=== PATIENT | male | born 1955 | race Caucasian/White ===

== ENCOUNTER 2018-04-26 15:37 | Inpatient (IN) | payer MEDICAID ==
[~2018-04-26] VITALS: Ht 167.6 cm; Wt 107.5 kg
[~2018-04-26 15:37] MED LIST: IBUP200C11 PO
[2018-04-26] MEDS ORDERED: ALBUTEROL 0.5% (NEB) 2.5 MG/0.5 ML AMP INH STA (16:07)
[2018-04-26] MEDS ORDERED: IPRATROPIUM (NEB) 0.5 MG/2.5 ML AMP INH STA (16:07)
[2018-04-26] MEDS ORDERED: METHYLPREDNISOLONE 125 MG INJ IV STA (16:07)
[2018-04-26] MEDS ORDERED: FUROSEMIDE 40 MG INJ ONE (18:08)
[2018-04-26] MEDS ORDERED: IBUP-1542 PO (18:10)
[2018-04-26] MEDS ORDERED: SIMV40TA2 PO (18:11)
[2018-04-26] MEDS ORDERED: ASPI-817 PO (18:11)
[2018-04-26] MEDS ORDERED: BENA40TA56 PO (18:12)
[2018-04-26] MEDS ORDERED: HYDR12.58 PO (18:12)
[2018-04-26] MEDS ORDERED: VIA100 PO (18:13)
[2018-04-26] MEDS ORDERED: FUROSEMIDE 40 MG INJ IV ONE (18:30)
[2018-04-26] MEDS ORDERED: LEVOFLOXACIN 750MG/D5W (PMX) 150 ML IVPB ONE (19:00)
--- NOTE | 2018-04-26 19:39 | ERD ---
ER Documentation Chief Complaint Chief Complaint Sent from for SOB HPI This is a 62-year-old male with a past medical history of hypertension, hyperlipidemia, chronic wheezing, chronic dyspnea on exertion, chronic lower extremity edema but no reported diagnosis of COPD or CHF who is now presenting with progressive worsening symptoms. Over the last 5-6 days, the patient has had a congested cough. He has had increased dyspnea on exertion, unable to walk down the hallway without feeling short of breath. He endorses waxing and waning chest pressure but no chest pain. He does not endorse any chest pressure or pain at this time. He does endorse bilateral lower extremity edema, but it is unchanged compared to his normal baseline. He does not endorse diaphoresis. While the patient did not endorse any wheezing, the family reports that he wheezes chronically and that this too has been getting worse over the last few days. The patient also endorses paroxysmal nocturnal dyspnea. Usually he sleeps with 3 pillows underneath him, but this is no longer helping. He is still waking up with significant air hunger. He does not endorse fever or chills at home. He does not endorse lightheadedness or dizziness. The patient denies nausea or vomiting. The patient has had no headache or vision changes. The patient does not endorse neck or back pain. The patient denies abdominal pain. The patient denies changes to bowel movements or urination. The patient has had no focal deficits. The patient has had no weakness or numbness or tingling to the face or extremities. ROS All systems reviewed and are negative except as per history of present illness. Medications Home Meds Reported Medications Sildenafil Citrate* (Viagra*) 100 Mg Tablet, 100 MG PO NEEDED PRN for PRN, TAB 04/26/18 Benazepril Hcl* (Benazepril Hcl*) 40 Mg Tablet, 40 MG PO DAILY, #30 TAB 04/26/18 Hydrochlorothiazide* (Hydrochlorothiazide*) 12.5 Mg Tablet, 12.5 MG PO DAILY, #30 TAB 04/26/18 Aspirin* (Aspirin* EC) 81 Mg Tablet.dr, 81 MG PO DAILY, TAB 04/26/18 Simvastatin* (Zocor*) 40 Mg Tablet, 40 MG PO DAILY, #30 TAB 04/26/18 Ibuprofen* (Ibuprofen*) 600 Mg Tablet, 600 MG PO DAILY, TAB 04/26/18 Discontinued Reported Medications Ibuprofen* (Advil*) 200 Mg Capsule, 600 MG PO Q4 05/02/12 Allergies Allergies: Coded Allergies: No Known Allergy (Unverified , 04/26/18) PMhx/Soc History of Surgery: Yes (FOREHEAD, EYES-PLASTIC SURGERY) Anesthesia Reaction: No Hx Neurological Disorder: No Hx Respiratory Disorders: Yes (COPD) Hx Cardiac Disorders: Yes (Hypertension, hyperlipidemia, CHF) Hx Psychiatric Problems: No Hx Miscellaneous Medical Probl: No Hx Alcohol Use: Yes Hx Substance Use: No Hx Tobacco Use: Yes Smoking Status: Current every day smoker FmHx Family History: No diabetes Physical Exam Vitals Vital Signs Date Temp Pulse Resp B/P (MAP) Pulse Ox O2 O2 Flow FiO2 Time Delivery Rate 04/26/18 103 22 137/98 95 18:03 (111) 04/26/18 5.0 16:22 04/26/18 110 26 91 Nasal 5.0 16:22 Cannula 04/26/18 98.2 108 20 156/89 99 15:44 (111) Physical Exam Const: Well-developed, well-nourished Head: Normocephalic, Atraumatic Eyes: Normal Conjunctiva. Extraocular movements intact. Pupils equal, round and reactive to light ENT: Normal External Ears, Nose and Mouth. Neck: Full range of motion. No meningismus. Resp: Hypoxia in the high 80s. Dyspnea, only able to speak in 3-4 word sentences. Bibasilar rales. Diffuse bilateral end expiratory wheezes. Mild respiratory distress. Cardio: Regular rhythm. Mild tachycardia. No murmurs, rubs or gallops Abd: Obese. Soft, non tender, non distended. Normal bowel sounds Skin: No petechiae or rashes Back: No midline tenderness. No CVA tenderness Ext: No cyanosis, or edema Neur: Awake and alert, oriented 4. Cranial nerves intact. No facial droop. Normal strength, sensation and coordination. Psych: Normal Mood and Affect Result Diagram: 04/26/18 1615 04/26/18 1615 Results 24 hrs Laboratory Tests Test 04/26/18 15:59 04/26/18 16:14 04/26/18 16:15 Blood Gas Specimen Source Blood arterial Arterial Blood Date Drawn 04/26/2018 4:12:01 PM Arterial Blood pH 7.370 (Temp corrected) Arterial Blood pCO2 61.9 mmhg (Temp correct) Arterial Blood pO2 60.7 mmHG (Temp corrected) Arterial Blood HCO3 35.0 mmol/L Arterial Blood Base Excess 6.8 mmol/L Arterial Blood 90.2 mmHG Oxygen Saturation Simeon Test ACCEPTAB Arterial Blood Gas Left Radial Puncture Site Arterial 2.6 % Blood Carboxyhemoglobin Arterial Blood Methemoglobin 0.3 % Blood Gas A-a O2 Differential 124.2 mmHg Oxyhemoglobin Percent 87.6 % Blood Gas Temperature 37.0 C Blood Gas Modality NASAL CANNULA FiO2 36.0 % Blood Gas Notified Whom MDA Blood Gas Notified Time 04/26/2018 4:14:26 PM POC Venous Lactate 1.4 mmol/L White Blood Count 13.0 10^3/ul Red Blood Count 5.77 10^6/ul Hemoglobin 17.5 g/dl Hematocrit 55.2 % Mean Corpuscular Volume 95.7 fl Mean Corpuscular Hemoglobin 30.3 pg Mean Corpuscular 31.7 g/dl Hemoglobin Concent Red Cell Distribution Width 13.6 % Platelet Count 246 10^3/UL Mean Platelet Volume 10.7 fl Immature Granulocytes % 2.200 % Neutrophils % 56.7 % Segmented Neutrophils 61 % % (Manual) Lymphocytes % 28.7 % Lymphocytes % (Manual) 28 % Reactive Lymphocytes 2 % % (Manual) Monocytes % 11.0 % Monocytes % (Manual) 5 % Eosinophils % 0.4 % Eosinophils % (Manual) 1 % Basophils % 1.0 % Basophils % (Manual) 1 % Metamyelocytes % (manual) 1 % Plasma Cells % (manual) 1 % Nucleated Red Blood Cells % 2 % Immature Granulocytes # 0.290 10^3/ul Neutrophils # 7.3 10^3/ul Lymphocytes (Manual) 3.6 10^3/ul Lymphocytes # 3.7 10^3/ul Reactive Lymphocytes # 0.2 10^3/ul Monocytes # 1.4 10^3/ul Monocytes # (Manual) 0.6 10^3/ul Eosinophils # 0.1 10^3/ul Basophils # 0.1 10^3/ul Basophils # (Manual) 0.1 10^3/ul Metamyelocytes # 0.1 10^3/ul Plasma Cells # (manual) 0.1 10^3/ul Nucleated Red Blood Cells # 0.1 10^3/ul Platelet Estimate NORMAL Giant Platelets 1 % Polychromasia 1+ Anisocytosis 1+ Microcytosis 1+ Macrocytosis 1+ Prothrombin Time 12.2 Sec Prothrombin Time Ratio 1.0 INR International 0.89 Normalized Ratio Sodium Level 139 mmol/L Potassium Level 4.3 mmol/L Chloride Level 93 mmol/L Carbon Dioxide Level 35 mmol/L Anion Gap 11 Blood Urea Nitrogen 29 mg/dl Creatinine 0.78 mg/dl Est Glomerular Filtrat > 60 mL/min Rate mL/min Glucose Level 107 mg/dl Calcium Level 8.9 mg/dl Total Bilirubin 0.6 mg/dl Direct Bilirubin 0.00 mg/dl Indirect Bilirubin 0.6 mg/dl Aspartate Amino 43 IU/L Transf (AST/SGOT) Alanine 42 IU/L Aminotransferase (ALT/SGPT) Alkaline Phosphatase 65 IU/L Troponin I 0.047 ng/ml B-Type Natriuretic Peptide 5640 PG/ML Total Protein 8.0 g/dl Albumin 4.2 g/dl Globulin 3.80 g/dl Albumin/Globulin Ratio 1.10 Current Medications Medications Dose Sig/Jasmin Start Time Status Last (Trade) Ordered Route PRN Stop Time Admin Dose Reason Admin Ipratropium 1.5 mg ONCE STAT 04/26/18 DC 04/26/18 Wallace INH 16:07 04/26/18 16:19 (Atrovent 16:09 0.02% (Neb)) Albuterol 15 mg ONCE STAT 04/26/18 DC 04/26/18 (Proventil INH 16:07 04/26/18 16:19 0.5% (Neb)) 16:09 125 mg ONCE STAT 04/26/18 DC 04/26/18 Methylprednis IV 16:07 04/26/18 16:27 olone Sodium 16:09 Succinate (Solu-Medrol) Furosemide 40 mg ONCE ONCE 04/26/18 DC 04/26/18 (Lasix) IV 18:30 04/26/18 18:15 18:31 Furosemide 40 mg STK-MED 04/26/18 DC (Lasix) ONCE .ROUTE 18:08 04/26/18 18:09 150 ml @ ONCE ONCE 04/26/18 04/26/18 Levofloxacin/ 100 mls/hr IVPB 19:00 04/26/18 19:07 Dextrose 20:29 Procedures/MDM MDM The patient's presentation warrants further investigation. Previous medical records, if available, were reviewed. LABS The patient's laboratory testing was obtained and reviewed. No emergent treatment was required unless described below. CBC: Leukocytosis but no left shift. No E/o anemia or thrombocytopenia Chemistry: No E/o severe acidosis or renal failure or liver disease or diabetic ketoacidosis. Metabolic alkalosis likely compensatory to a respiratory acidosis from COPD. Elevated BUN with a BUN: Creatinine ratio greater than 20:1, likely related to third spacing and intravascular depletion. PT/INR: No E/o significant coagulopathy Lactate: No E/o severe sepsis Troponin: No E/o acute ischemia BNP: E/o heart failure ABG: Hypercapnia and hypoxemia EKG EKG read by me: Rate/Rhythm: Sinus tachycardia at 102 bpm Intervals: Normal SD interval. Wide QRS in the setting of a left bundle branch block. [place]: Left axis deviation Impression: Left bundle branch block that does not meet sgarbossa criteria. No evidence of STEMI. Sinus tachycardia Repeat EKG read by me: Rate/Rhythm: Sinus tachycardia at 103 bpm with a PVC present Intervals: Normal SD interval. Wide QRS in the setting of a left bundle branch block. [place]: Left axis deviation Impression: Left bundle branch block that does not meet sgarbossa criteria. No evidence of STEMI. Sinus tachycardia. PVCs. IMAGING Imaging and Radiology interpretation reviewed. CXR FINDINGS: There is mild cardiomegaly. There is mild pulmonary vascular conge stion. There are bilateral perihilar and lower lobe increased interstitial changes. There is no pleural effusion.. There is no pneumothorax. IMPRESSION: Mild cardiomegaly with pulmonary vascular congestion. Electronically viewed and signed by Jaime Garcia MD, on 04/26/2018 16:29 TREATMENT/DISPOSITION The patient presents in respiratory distress. The patient was initially started on nasal cannula, but the patient's ABG reveals hypercapnia. The patient is also hypoxic. There is evidence of COPD on exam. The patient was treated with nebulized albuterol and ipratropium in addition to Solu-Medrol. There is also evidence of heart failure clinically, radiographically and hematologically. The patient was also given a dose of Lasix. The patient has not been feeling well with cough and congestion, I am concerned about a COPD exacerbation of a possible infectious etiology. The patient does have a leukocytosis and was mildly tachycardic. A septic workup was completed. The patient's lactic acid is within normal limits. I do not see evidence of endorgan damage. I have very low suspicion for sepsis and I do not feel the patient requires a full septic workup. I do not think the patient would benefit from a sepsis bolus. The patient was started on a dose of Levaquin in the emergency department to treat for a possible infection. The patient's chest xray does not reveal a focal pneumonia or pneumothorax or pleural effusions. The patient does not have a widened mediastinum and does not have signs or symptoms concerning for thoracic aortic aneurysm or dissection. The patient does not have pneumomediastinum or signs concerning for esophageal tear or rupture. The patient has no clinical or radiographic signs of pericardial effusion or tamponade. The patient does not have pneumoperitoneum and I have decreased suspicion of viscus perforation as possible referred pain. I have low suspicion for pulmonary embolism. Despite the breathing treatments, the patient continued to be hypoxic. The patient was ultimately started on BiPAP in the emergency department with improved oxygenation. This should also help his hypercapnia from COPD as well as his pulmonary edema from CHF. CRITICAL CARE NOTE Time: 35 minutes excluding all billable procedures. Treatments/Evaluations: The patient was at risk of hemodynamic compromise. Timing of critical care involved close serial monitoring, evaluation of the patient's medical record including previous records & current laboratory/imaging studies, potential interventions for prevention of hemodynamic/ cardiopulmonary/ neurologic compromise, maintaining tight fluid balance, and any discussions with the family and/or consultants regarding the patient's status and prognosis. ADMISSION At this time, I feel that the patient requires admission for further evaluation and management. The patient will be admitted to panel in accordance with the patient's insurance. The patient was accepted by Dr. David at 1930PM April 26, 2018. Disclaimer: Inadvertent spelling and grammatical errors are likely due to EHR/dictation software use and do not reflect on the overall quality of patient care. Note that the electronic time recorded on this note does not necessarily reflect the actual time of the patient encounter. Departure Diagnosis: Primary Impression: COPD exacerbation Additional Impressions: Bronchitis Hypercapnia Metabolic alkalosis with respiratory acidosis Leukocytosis Leukocytosis type: unspecified Qualified Codes: D72.829 - Elevated white blood cell count, unspecified Hypoxia CHF exacerbation Heart failure type: unspecified Qualified Codes: I50.9 - Heart failure, unspecified Elevated BUN Intravascular volume depletion Elevated brain natriuretic peptide (BNP) level Condition: Serious GREG MANUEL MD Apr 26, 2018 19:23
[2018-04-26] MEDS ORDERED: ACETAMINOPHEN 325 MG TAB PO PRN (20:00)
[2018-04-26] MEDS ORDERED: ONDANSETRON 4 MG INJ IV PRN ×2 (20:00→20:30)
--- NOTE | 2018-04-26 20:29 | HP ---
Date/Time of Note Date/Time of Note DATE: 04/26/18 TIME: 20:27 Assessment/Plan VTE Prophylaxis SCD applied (from Nsg): Yes Pharmacological prophylaxis: heparin Lines/Catheters IV Catheter Type (from Nrsg): Saline Lock Assessment/Plan Hospital Course This is a 62-year-old male being admitted to the telemetry floor for: #1 acute on chronic hypoxemic hypercapnic respiratory failure: Etiology multifactorial secondary to undiagnosed COPD/CHF. Scheduled nebs and steroids. Lasix 40 mg IV twice daily. Continue BiPAP, serial ABGs. #2 severe sepsis: Etiology unclear at the current time, will check urinalysis. Started with treatment on Levaquin in the ED will continue this. Pending culture results. Trend lactic acid levels. #3 Suspect COPD exacerbation: Scheduled nebs and steroids, Levaquin 750 mg every 24 hours. #4 newly diagnosed CHF: Lasix 40 mg twice daily. Strict I's and O's. 1200 cc fluid restriction. Low-salt diet. Continue TIMOTHY inhibitor, statin, aspirin. Will check an echocardiogram. Consult cardiology #5 obesity: We will check hemoglobin A1c, lipid panel, TSH, encourage diet and lifestyle modification #6 lactic acidosis: Suspect multifactorial secondary to underlying sepsis and/or hypoxia. We will continue to trend. Continue treating as per above. #7 hypertension: Continue home meds #8 hyperlipidemia continue statin #9 DVT GI prophylaxis: Heparin, no GI prophylaxis indicated Further treatment strategy will be implemented as per the clinical course Result Diagram: 04/26/18 1615 04/26/18 1615 Results 24hrs Laboratory Tests Test 04/26/18 15:59 04/26/18 16:14 04/26/18 16:15 Blood Gas Specimen Source Blood arterial Arterial Blood Date Drawn 04/26/2018 4:12:01 PM Arterial Blood pH 7.370 (Temp corrected) Arterial Blood pCO2 61.9 H (Temp correct) Arterial Blood pO2 60.7 L (Temp corrected) Arterial Blood HCO3 35.0 H Arterial Blood Base Excess 6.8 H Arterial Blood 90.2 L Oxygen Saturation Simeon Test ACCEPTAB Arterial Blood Gas Left Radial Puncture Site Arterial 2.6 Blood Carboxyhemoglobin Arterial Blood Methemoglobin 0.3 Blood Gas A-a O2 Differential 124.2 H Oxyhemoglobin Percent 87.6 L Blood Gas Temperature 37.0 Blood Gas Modality NASAL CANNULA FiO2 36.0 Blood Gas Notified Whom [facility] Blood Gas Notified Time 04/26/2018 4:14:26 PM POC Venous Lactate 1.4 White Blood Count 13.0 H Red Blood Count 5.77 Hemoglobin 17.5 Hematocrit 55.2 H Mean Corpuscular Volume 95.7 Mean Corpuscular Hemoglobin 30.3 Mean Corpuscular 31.7 L Hemoglobin Concent Red Cell Distribution Width 13.6 Platelet Count 246 Mean Platelet Volume 10.7 H Immature Granulocytes % 2.200 H Neutrophils % 56.7 Segmented Neutrophils 61 % (Manual) Lymphocytes % 28.7 Lymphocytes % (Manual) 28 Reactive Lymphocytes % (Manual) 2 H Monocytes % 11.0 Monocytes % (Manual) 5 Eosinophils % 0.4 Eosinophils % (Manual) 1 Basophils % 1.0 Basophils % (Manual) 1 Metamyelocytes % (manual) 1 H Plasma Cells % (manual) 1 Nucleated Red Blood Cells % 2 H Immature Granulocytes # 0.290 H Neutrophils # 7.3 Lymphocytes (Manual) 3.6 H Lymphocytes # 3.7 H Reactive Lymphocytes # 0.2 H Monocytes # 1.4 H Monocytes # (Manual) 0.6 Eosinophils # 0.1 Basophils # 0.1 Basophils # (Manual) 0.1 H Metamyelocytes # 0.1 H Plasma Cells # (manual) 0.1 H Nucleated Red Blood Cells # 0.1 H Platelet Estimate NORMAL Giant Platelets 1 H Polychromasia 1+ Anisocytosis 1+ Microcytosis 1+ Macrocytosis 1+ Prothrombin Time 12.2 Prothrombin Time Ratio 1.0 INR International 0.89 Normalized Ratio Sodium Level 139 Potassium Level 4.3 Chloride Level 93 L Carbon Dioxide Level 35 H Anion Gap 11 Blood Urea Nitrogen 29 H Creatinine 0.78 Est Glomerular Filtrat > 60 Rate mL/min Glucose Level 107 Calcium Level 8.9 Total Bilirubin 0.6 Direct Bilirubin 0.00 Indirect Bilirubin 0.6 Aspartate Amino 43 Transf (AST/SGOT) Alanine 42 Aminotransferase (ALT/SGPT) Alkaline Phosphatase 65 Troponin I 0.047 B-Type Natriuretic Peptide 5640 H Total Protein 8.0 Albumin 4.2 Globulin 3.80 H Albumin/Globulin Ratio 1.10 HPI/ROS Admit Date/Time Admit Date/Time Hx of Present Illness cc: cough, wheezing, dyspnea for almost 1 week This is a 62-year-old male with a past medical history of hypertension, hyper lipidemia, chronic wheezing, chronic dyspnea on exertion, chronic lower extremity edema but no reported diagnosis of COPD or CHF who is now presenting with progressive worsening symptoms. Over the last 5-6 days, the patient has had a congested cough. He has had increased dyspnea on exertion, unable to walk down the hallway without feeling short of breath. He endorses waxing and waning chest pressure but no chest pain. He does not endorse any chest pressure or pain at this time. He does report bilateral lower extremity edema. Patient also reports wheezing. The patient also endorses paroxysmal nocturnal dyspnea. Usually he sleeps with 3 pillows underneath him, but this is no longer helping. He denies any fevers chills or lightheadedness or nausea vomiting or diarrhea. allergies: nkda meds: see flakita GOLDEN Const: As per HPI Eyes : No pain discharge or redness or change in visual acuity ENT: No pain, sore throat, congestion, congestion, dysphagia or discharge Respiratory: As per HPI Cardiovascular: As per HPI GI : no change in appetite, abdominal pain, nausea, vomiting, diarrhea, constipation, or change in the color his stool Genitourinary: No dysuria, hematuria, flank pain , discharge or CVA tenderness Musculoskeletal: No joint pain, back pain, neck pain, restricted range of motion in neck or joints Skin: No rash, bruising or hives Neuro: No headache, dizziness, syncope, seizure, focal weakness Endocrine: No polyuria, polydipsia, temperature intolerance Psych: No hallucination, depression, anxiety or suicidal ideation PMH/Family/Social Past Medical History hypertension, hyperlipidemia Medications Current Medications Levofloxacin/ Dextrose 150 ml @ 100 mls/hr ONCE ONCE IVPB Last administered on 04/26/18at 19:07; Admin Dose 100 MLS/HR; Start 04/26/18 at 19:00; Stop 04/26/18 at 20:29 Ondansetron HCl (Zofran Inj) 4 mg ER BRIDGE PRN IV NAUSEA/VOMITING; Start 04/26/18 at 20:00; Stop 04/27/18 at 19:59 Acetaminophen (Tylenol Tab) 650 mg ER BRIDGE PRN PO .MILD PAIN 1-3 OR TEMP; Start 04/26/18 at 20:00; Stop 04/27/18 at 19:59 Coded Allergies: No Known Allergy (Unverified , 04/26/18) Past Surgical History Past Surgical Hx: no surgical history Family History Significant Family History: no pertinent family hx Social History Alcohol Use: none Smoking Status: Current every day smoker Drug Use: none Exam/Review of Systems Vital Signs Vitals Vital Signs Date Temp Pulse Resp B/P (MAP) Pulse Ox O2 O2 Flow FiO2 Time Delivery Rate 04/26/18 106 18 145/102 97 BIPAP 19:43 (116) 04/26/18 100 19:15 04/26/18 5.0 16:22 04/26/18 98.2 15:44 Exam Exam General: Patient is currently sitting upright in bed in no acute distress, off of BiPAP at the moment for a break HEENT: Atraumatic, normocephalic. The pupils are equal, round and reactive. Ex traocular motor are intact Neck: Supple with full range of motion. No rigidity or meningismus Chest: Nontender Lungs: Expiratory wheezing on auscultation, nonlabored breathing Heart: Normal S1-S2, Regular rhythm and rate. No overt murmurs appreciated on auscultation Abdomen: Obese, soft , nontender, nondistended , bowel sounds are present. No guarding no rebound tenderness , No masses or organomegaly. No costovertebral temporal angle mass Extremities: Normal to inspection, no edema no cyanosis Neurologic: Normal mental status, speech normal, cranial nerves II through XII are intact, motor and sensory are intact, Additional Comments EKG Rate/Rhythm: Sinus tachycardia at 102 bpm Intervals: Normal [place] interval. Wide QRS in the setting of a left bundle branch block. [place]: Left axis deviation Impression: Left bundle branch block that does not meet sgarbossa criteria. No evidence of STEMI. Sinus tachycardia PROCEDURE: XR Chest. CLINICAL INDICATION: Chest pain TECHNIQUE: Single portable view of the chest was obtained COMPARISON: 05/02/2012 FINDINGS: There is mild cardiomegaly. There is mild pulmonary vascular congestion. There are bilateral perihilar and lower lobe increased interstitial changes. There is no pleural effusion.. There is no pneumothorax. RPTAT: AA IMPRESSION: Mild cardiomegaly with pulmonary vascular congestion. .Jaime Garcia MD, MD Date Time Electronically viewed and signed by .Jaime Garcia MD, MD on 04/26/2018 16:29 .S/ CC: GREG MANUEL MD [id number] JULI FLORENTINO Apr 26, 2018 20:29
[2018-04-26] MEDS ORDERED: DOCUSATE SODIUM 100 MG CAP PO PRN (20:30)
[2018-04-26] MEDS ORDERED: MAGNESIUM HYDROXIDE 30ML CUP PO PRN (20:30)
[2018-04-26] MEDS ORDERED: NACL 0.9% 3 ML SYG IV SCH (20:30)
[2018-04-26] MEDS ORDERED: LEVALBUTEROL (NEB) 1.25 MG/0.5 ML AMP HHN PRN (20:30)
[2018-04-26 21:28] VITALS: PULSE 109
[2018-04-26] MEDS: LEVALBUTEROL (NEB) 1.25 MG/0.5 ML AMP HHN SCH (21:30)
[2018-04-26] MEDS: IPRATROPIUM (NEB) 0.5 MG/2.5 ML AMP HHN SCH (21:30)
[2018-04-26 21:50] VITALS: PULSE 112
[2018-04-26] MEDS ORDERED: ALBUMIN HUMAN 25% 100 ML IV ONE (23:00)
[2018-04-26 23:18] VITALS: PULSE 104
[2018-04-26 23:25] VITALS: BP 116/70; PULSE 98; RESP 18
[2018-04-26] MEDS: HEPARIN 5,000 UNIT/1 ML VIAL SC SCH (23:27)
[2018-04-26 23:33] VITALS: Ht 167.6 cm; Wt 107.5 kg
[2018-04-27] VITALS (30 sets, daily range): BP systolic 94–127; BP diastolic 58–77; PULSE 64–170; RESP 14–30
[2018-04-27] MEDS: IPRATROPIUM (NEB) 0.5 MG/2.5 ML AMP HHN SCH ×3 (00:24→08:36)
[2018-04-27] MEDS: LEVALBUTEROL (NEB) 1.25 MG/0.5 ML AMP HHN SCH ×3 (00:24→08:36)
[2018-04-27] MEDS ORDERED: MAGNESIUM SULFATE 2 GM/50 ML 50 ML IVPB ONE (04:00)
[2018-04-27] MEDS: PANTOPRAZOLE (EC) 40 MG TAB PO SCH (06:32)
[2018-04-27] MEDS: HEPARIN 5,000 UNIT/1 ML VIAL SC SCH ×3 (06:39→21:49)
[2018-04-27] MEDS: ASPIRIN (EC) 81 MG TAB PO SCH (08:07)
[2018-04-27] MEDS: FUROSEMIDE 40 MG INJ IV SCH ×2 (08:08→17:46)
[2018-04-27] MEDS ORDERED: BENAZEPRIL 40 MG TAB PO SCH (09:00)
[2018-04-27] MEDS ORDERED: predniSONE 20 MG TAB PO SCH (09:00)
[2018-04-27] MEDS ORDERED: METOPROLOL (XL) 25 MG TAB PO SCH (11:00)
--- NOTE | 2018-04-27 11:13 | PN ---
Date/Time of Note Date/Time of Note DATE: 04/27/18 TIME: 11:10 Assessment/Plan VTE Prophylaxis Risk score (from Ns)>0 risk: 3 SCD applied (from Ns): Yes Pharmacological prophylaxis: heparin Lines/Catheters IV Catheter Type [facility]from [facility] Saline Lock Urinary Cath still in place: No Assessment/Plan Hospital Course SUBJECTIVE: OBJECTIVE: Vital signs-see below PHYSICAL EXAM: Constitutional: Well-developed, adequately built, male, in respiratory distress, on BiPAP psych: nl mood/affect, no complaints Head: atraumatic, normocephalic Eyes: nl conjunctiva, nl sclera ENMT: mucosa pink and moist, nl external ears & nose Neck: non-tender, supple Respiratory: Rales bilaterally.Diminished bibasilar..clear to auscultation, normal air movement Cardiovascular: nl pulses, regular rate and rhythm Gastrointestinal: non-tender, soft, bowel sounds active in all 4 quadrants. Musculoskeletal/extremities:+Pitting edema bilaeral LEs. nl extremities to inspection, motor strength equal bilaterally, no focal deficit. Normal pulses,no cyanosis. Neurological: Alert oriented 3,nl speech, nl strength Skin: nl turgor ASSESSMENT/PLAN: 62-year-old male w/htn, hyperlipidemia, who has no pcp checks 2/2 insurance issues, has been having progressive SOB,jessica.LE edma for months for which no workup has been done, here with worsening shortness of breath to a point that he experiences breathing difficulties/cough/wheezing/worsening jessica le edema even during small distance walkingx 5 days..... 1. Acute hypoxemic/hypercapnic respiratory failure, most likely CHF exacerbation,possible COPD onset. -Decompensated, transfer patient to ICU -BiPAP, [id number] bronchodilators, IV steroids (WHEEZING+) -Pulmonary consult -CTA chest r/o PE 2. CHF exacerbation, systolic versus diastolic -Decompensated -Continue IV Lasix,ACEi -Add beta-blockers -Follow-up echocardiogram. -strict I's/O's, insert Gonzalez, fluid restriction 1 L/day. -Cardiology consult. 3.Possible COPD onset -In light of patient's history of tobacco use, he could also have COPD exacerbation. We will keep patient on the clock bronchodilators and IV steroids in the acute phase. He would also need a COPD maintenance management treatment plan upon discharge. 4. Lactic acidosis, in the absence of fever/leukocytosis. Likely type B in setting of hypercapnic respiratory failure/COPD. -Patient will be empirically treated with antimicrobial ~48 hrs until infection is ruled out. -f/u cultures 5. Obesity with a BMI 38.3. -A1c/lipid panel within acceptable range. Weight reduction advised. 6. Tobacco use -Cessation advised DVT prophylaxis: Heparin PUD prophylaxis: Protonix CODE STATUS: Full code Diet: 2 g sodium diet. Disposition: Overall, patient with worsening respiratory status. Patient needs to be transferred to intensive care unit for close monitoring. Continue diuresis. Follow-up pulmonary/cardiology recommendations. Patient was seen in collaboration w/ Result Diagram: 04/27/18 0259 04/27/18 0259 Results 24hrs Laboratory Tests Test 04/26/18 15:59 04/26/18 16:14 04/26/18 16:15 04/26/18 22:06 Blood Gas Blood arterial Specimen Source Arterial Blood 04/26/2018 4:12:0 Date Drawn 1 PM Arterial Blood 7.370 pH (Temp corrected ) Arterial Blood 61.9 H pCO2 (Temp correct) Arterial Blood 60.7 L pO2 (Temp corrected ) Arterial Blood 35.0 H HCO3 Arterial Blood 6.8 H Base Excess Arterial Blood 90.2 L Oxygen Saturati on Simeon Test ACCEPTAB Arterial Blood Left Radial Gas Puncture Site Arterial 2.6 Blood Carboxyhe moglobin Arterial Blood 0.3 Methemoglobin Blood Gas A-a 124.2 H O2 Differential Oxyhemoglobin 87.6 L Percent Blood Gas 37.0 Temperature Blood Gas NASAL CANNULA Modality FiO2 36.0 Blood Gas [facility] Notified Whom Blood Gas 04/26/2018 4:14:2 Notified Time 6 PM POC Venous 1.4 Lactate White Blood 13.0 H Count Red Blood Count 5.77 Hemoglobin 17.5 Hematocrit 55.2 H Mean 95.7 Corpuscular Volume Mean 30.3 Corpuscular Hemoglobin Mean 31.7 L Corpuscular Hemoglobin Conc ent Red Cell 13.6 Distribution Width Platelet Count 246 Mean Platelet 10.7 H Volume Immature 2.200 H Granulocytes % Neutrophils % 56.7 Segmented 61 Neutrophils % (Manual) Lymphocytes % 28.7 Lymphocytes % 28 (Manual) Reactive 2 H Lymphocytes % (Manual) Monocytes % 11.0 Monocytes % 5 (Manual) Eosinophils % 0.4 Eosinophils % 1 (Manual) Basophils % 1.0 Basophils % 1 (Manual) Metamyelocytes 1 H % (manual) Plasma Cells % 1 (manual) Nucleated Red 2 H Blood Cells % Immature 0.290 H Granulocytes # Neutrophils # 7.3 Lymphocytes 3.6 H (Manual) Lymphocytes # 3.7 H Reactive 0.2 H Lymphocytes # Monocytes # 1.4 H Monocytes # 0.6 (Manual) Eosinophils # 0.1 Basophils # 0.1 Basophils # 0.1 H (Manual) Metamyelocytes 0.1 H # Plasma Cells # 0.1 H (manual) Nucleated Red 0.1 H Blood Cells # Platelet NORMAL Estimate Giant Platelets 1 H Polychromasia 1+ Anisocytosis 1+ Microcytosis 1+ Macrocytosis 1+ Prothrombin 12.2 Time Prothrombin 1.0 Time Ratio INR 0.89 International Normalized Rati o Sodium Level 139 Potassium Level 4.3 Chloride Level 93 L Carbon Dioxide 35 H Level Anion Gap 11 Blood Urea 29 H Nitrogen Creatinine 0.78 Est Glomerular > 60 Filtrat Rate mL/min Glucose Level 107 Calcium Level 8.9 Total Bilirubin 0.6 Direct 0.00 Bilirubin Indirect 0.6 Bilirubin Aspartate Amino 43 Transf (AST/SGO T) Alanine 42 Aminotransferas e (ALT/SGPT) Alkaline 65 Phosphatase Troponin I 0.047 0.042 B-Type 5640 H Natriuretic Peptide Total Protein 8.0 Albumin 4.2 Globulin 3.80 H Albumin/Globuli 1.10 n Ratio Lactic Acid 3.6 *H Level Creatine Kinase 63 Creatine Kinase 7.9 Index Creatinine 4.96 H Kinase MB (Mass) Test 04/27/18 02:00 04/27/18 02:59 04/27/18 05:00 04/27/18 08:00 Blood Gas Blood arterial Blood arterial Blood arterial Specimen Source Arterial Blood 04/27/2018 2:05:4 04/27/2018 5:10:4 04/27/2018 10:53: Date Drawn 9 AM 9 AM 40 AM Arterial Blood 7.274 *L 7.285 *L 7.265 *L pH (Temp corrected ) Arterial Blood 78.3 H 76.6 H 90.2 *H pCO2 (Temp correct) Arterial Blood 120.1 H 80.1 112.9 H pO2 (Temp corrected ) Arterial Blood 35.5 H 35.6 H 40.0 H HCO3 Arterial Blood 5.0 H 5.4 H 8.3 H Base Excess Arterial Blood 97.8 94.5 L 97.7 Oxygen Saturati on Simeon Test ACCEPTAB ACCEPTAB ACCEPTAB Arterial Blood Right Radial Right Radial Right Radial Gas Puncture Site Arterial 0.8 0.3 0.4 Blood Carboxyhe moglobin Arterial Blood 0.4 0.4 0.4 Methemoglobin Blood Gas A-a 368.1 H 409.9 H 362.8 H O2 Differential Oxyhemoglobin 96.6 93.8 96.9 Percent Blood Gas 37.0 37.0 37.0 Temperature Blood Gas 18.0 30.0 30.0 Respiration Rate Blood Gas 18 30 31 Actual Respiration Rat e Blood Gas MASK - BIPAP MASK - BIPAP MASK - BIPAP Modality FiO2 80.0 80.0 80.0 Blood Gas 10 12 16 Pressure Support Blood Gas 15/5 18/6 24/8 IPAP/EPAP Ratio Blood Gas Chung FLORENTINO MD, M MD RDANG RN Critical Value Read Back Blood Gas MT REN TM Notified Whom Blood Gas 04/27/2018 2:15:4 04/27/2018 5:24:0 04/27/2018 10:59: Notified Time 7 AM 8 AM 55 AM White Blood 8.3 # Count Red Blood Count 5.45 Hemoglobin 16.4 Hematocrit 52.2 H Mean 95.8 Corpuscular Volume Mean 30.1 Corpuscular Hemoglobin Mean 31.4 L Corpuscular Hemoglobin Conc ent Red Cell 13.8 Distribution Width Platelet Count 238 Mean Platelet 10.2 Volume Immature 3.200 H Granulocytes % Neutrophils % 80.9 H Lymphocytes % 13.4 L Monocytes % 2.0 Eosinophils % 0.0 Basophils % 0.5 Nucleated Red 0.4 H Blood Cells % Immature 0.270 H Granulocytes # Neutrophils # 6.7 Lymphocytes # 1.1 Monocytes # 0.2 L Eosinophils # 0.0 Basophils # 0.0 Nucleated Red 0.0 Blood Cells # Sodium Level 141 Potassium Level 4.6 Chloride Level 94 L Carbon Dioxide 35 H Level Anion Gap 12 Blood Urea 29 H Nitrogen Creatinine 0.89 Est Glomerular > 60 Filtrat Rate mL/min Glucose Level 198 Hemoglobin A1c 5.8 Lactic Acid 2.4 *H Level Calcium Level 8.9 Magnesium Level 1.8 Total Bilirubin 0.3 Direct 0.00 Bilirubin Indirect 0.3 Bilirubin Aspartate Amino 37 Transf (AST/SGO T) Alanine 37 Aminotransferas e (ALT/SGPT) Alkaline 44 Phosphatase Creatine Kinase 62 61 Creatine Kinase 7.1 6.6 Index Creatinine 4.42 H 4.05 H Kinase MB (Mass) Troponin I 0.031 0.029 Total Protein 7.6 Albumin 4.1 Globulin 3.50 H Albumin/Globuli 1.17 n Ratio Triglycerides 124 Level Cholesterol 156 Level LDL 97 Cholesterol, Calculated HDL Cholesterol 34 Cholesterol/HDL 4.5 Ratio Thyroid 0.389 L Stimulating Hormone (TSH) Free Thyroxine 1.51 Free 3.60 Triiodothyronin e (T3) pg/mL Test 04/27/18 10:24 Lactic Acid 2.0 Level Exam/Review of Systems Exam Vitals Vital Signs Date Temp Pulse Resp B/P (MAP) Pulse Ox O2 O2 Flow FiO2 Time Delivery Rate 04/27/18 72 93 80 08:44 04/27/18 20 08:37 04/27/18 98.5 127/75 Room Air 07:28 (92) 04/27/18 4.0 00:25 Results Results 24hrs Laboratory Tests Test 04/26/18 15:59 04/26/18 16:14 04/26/18 16:15 04/26/18 22:06 Blood Gas Blood arterial Specimen Source Arterial Blood 04/26/2018 4:12:0 Date Drawn 1 PM Arterial Blood 7.370 pH (Temp corrected ) Arterial Blood 61.9 H pCO2 (Temp correct) Arterial Blood 60.7 L pO2 (Temp corrected ) Arterial Blood 35.0 H HCO3 Arterial Blood 6.8 H Base Excess Arterial Blood 90.2 L Oxygen Saturati on Simeon Test ACCEPTAB Arterial Blood Left Radial Gas Puncture Site Arterial 2.6 Blood Carboxyhe moglobin Arterial Blood 0.3 Methemoglobin Blood Gas A-a 124.2 H O2 Differential Oxyhemoglobin 87.6 L Percent Blood Gas 37.0 Temperature Blood Gas NASAL CANNULA Modality FiO2 36.0 Blood Gas [facility] Notified Whom Blood Gas 04/26/2018 4:14:2 Notified Time 6 PM POC Venous 1.4 Lactate White Blood 13.0 H Count Red Blood Count 5.77 Hemoglobin 17.5 Hematocrit 55.2 H Mean 95.7 Corpuscular Volume Mean 30.3 Corpuscular Hemoglobin Mean 31.7 L Corpuscular Hemoglobin Conc ent Red Cell 13.6 Distribution Width Platelet Count 246 Mean Platelet 10.7 H Volume Immature 2.200 H Granulocytes % Neutrophils % 56.7 Segmented 61 Neutrophils % (Manual) Lymphocytes % 28.7 Lymphocytes % 28 (Manual) Reactive 2 H Lymphocytes % (Manual) Monocytes % 11.0 Monocytes % 5 (Manual) Eosinophils % 0.4 Eosinophils % 1 (Manual) Basophils % 1.0 Basophils % 1 (Manual) Metamyelocytes 1 H % (manual) Plasma Cells % 1 (manual) Nucleated Red 2 H Blood Cells % Immature 0.290 H Granulocytes # Neutrophils # 7.3 Lymphocytes 3.6 H (Manual) Lymphocytes # 3.7 H Reactive 0.2 H Lymphocytes # Monocytes # 1.4 H Monocytes # 0.6 (Manual) Eosinophils # 0.1 Basophils # 0.1 Basophils # 0.1 H (Manual) Metamyelocytes 0.1 H # Plasma Cells # 0.1 H (manual) Nucleated Red 0.1 H Blood Cells # Platelet NORMAL Estimate Giant Platelets 1 H Polychromasia 1+ Anisocytosis 1+ Microcytosis 1+ Macrocytosis 1+ Prothrombin 12.2 Time Prothrombin 1.0 Time Ratio INR 0.89 International Normalized Rati o Sodium Level 139 Potassium Level 4.3 Chloride Level 93 L Carbon Dioxide 35 H Level Anion Gap 11 Blood Urea 29 H Nitrogen Creatinine 0.78 Est Glomerular > 60 Filtrat Rate mL/min Glucose Level 107 Calcium Level 8.9 Total Bilirubin 0.6 Direct 0.00 Bilirubin Indirect 0.6 Bilirubin Aspartate Amino 43 Transf (AST/SGO T) Alanine 42 Aminotransferas e (ALT/SGPT) Alkaline 65 Phosphatase Troponin I 0.047 0.042 B-Type 5640 H Natriuretic Peptide Total Protein 8.0 Albumin 4.2 Globulin 3.80 H Albumin/Globuli 1.10 n Ratio Lactic Acid 3.6 *H Level Creatine Kinase 63 Creatine Kinase 7.9 Index Creatinine 4.96 H Kinase MB (Mass) Test 04/27/18 02:00 04/27/18 02:59 04/27/18 05:00 04/27/18 08:00 Blood Gas Blood arterial Blood arterial Blood arterial Specimen Source Arterial Blood 04/27/2018 2:05:4 04/27/2018 5:10:4 04/27/2018 10:53: Date Drawn 9 AM 9 AM 40 AM Arterial Blood 7.274 *L 7.285 *L 7.265 *L pH (Temp corrected ) Arterial Blood 78.3 H 76.6 H 90.2 *H pCO2 (Temp correct) Arterial Blood 120.1 H 80.1 112.9 H pO2 (Temp corrected ) Arterial Blood 35.5 H 35.6 H 40.0 H HCO3 Arterial Blood 5.0 H 5.4 H 8.3 H Base Excess Arterial Blood 97.8 94.5 L 97.7 Oxygen Saturati on Simeon Test ACCEPTAB ACCEPTAB ACCEPTAB Arterial Blood Right Radial Right Radial Right Radial Gas Puncture Site Arterial 0.8 0.3 0.4 Blood Carboxyhe moglobin Arterial Blood 0.4 0.4 0.4 Methemoglobin Blood Gas A-a 368.1 H 409.9 H 362.8 H O2 Differential Oxyhemoglobin 96.6 93.8 96.9 Percent Blood Gas 37.0 37.0 37.0 Temperature Blood Gas 18.0 30.0 30.0 Respiration Rate Blood Gas 18 30 31 Actual Respiration Rat e Blood Gas MASK - BIPAP MASK - BIPAP MASK - BIPAP Modality FiO2 80.0 80.0 80.0 Blood Gas 10 12 16 Pressure Support Blood Gas 15/ 18/6 24/8 IPAP/EPAP Ratio Blood Gas Chung FLORENTINO MD, M MD RDANG RN Critical Value Read Back Blood Gas REN MCCLURE TM Notified Whom Blood Gas 04/27/2018 2:15:4 04/27/2018 5:24:0 04/27/2018 10:59: Notified Time 7 AM 8 AM 55 AM White Blood 8.3 # Count Red Blood Count 5.45 Hemoglobin 16.4 Hematocrit 52.2 H Mean 95.8 Corpuscular Volume Mean 30.1 Corpuscular Hemoglobin Mean 31.4 L Corpuscular Hemoglobin Conc ent Red Cell 13.8 Distribution Width Platelet Count 238 Mean Platelet 10.2 Volume Immature 3.200 H Granulocytes % Neutrophils % 80.9 H Lymphocytes % 13.4 L Monocytes % 2.0 Eosinophils % 0.0 Basophils % 0.5 Nucleated Red 0.4 H Blood Cells % Immature 0.270 H Granulocytes # Neutrophils # 6.7 Lymphocytes # 1.1 Monocytes # 0.2 L Eosinophils # 0.0 Basophils # 0.0 Nucleated Red 0.0 Blood Cells # Sodium Level 141 Potassium Level 4.6 Chloride Level 94 L Carbon Dioxide 35 H Level Anion Gap 12 Blood Urea 29 H Nitrogen Creatinine 0.89 Est Glomerular > 60 Filtrat Rate mL/min Glucose Level 198 Hemoglobin A1c 5.8 Lactic Acid 2.4 *H Level Calcium Level 8.9 Magnesium Level 1.8 Total Bilirubin 0.3 Direct 0.00 Bilirubin Indirect 0.3 Bilirubin Aspartate Amino 37 Transf (AST/SGO T) Alanine 37 Aminotransferas e (ALT/SGPT) Alkaline 44 Phosphatase Creatine Kinase 62 61 Creatine Kinase 7.1 6.6 Index Creatinine 4.42 H 4.05 H Kinase MB (Mass) Troponin I 0.031 0.029 Total Protein 7.6 Albumin 4.1 Globulin 3.50 H Albumin/Globuli 1.17 n Ratio Triglycerides 124 Level Cholesterol 156 Level LDL 97 Cholesterol, Calculated HDL Cholesterol 34 Cholesterol/HDL 4.5 Ratio Thyroid 0.389 L Stimulating Hormone (TSH) Free Thyroxine 1.51 Free 3.60 Triiodothyronin e (T3) pg/mL Test 04/27/18 10:24 Lactic Acid 2.0 Level Medications Medication Current Medications Ondansetron HCl (Zofran Inj) 4 mg ER BRIDGE PRN IV NAUSEA/VOMITING; Start 04/26/18 at 20:00; Stop 04/27/18 at 19:59 Acetaminophen (Tylenol Tab) 650 mg ER BRIDGE PRN PO .MILD PAIN 1-3 OR TEMP; S tart 04/26/18 at 20:00; Stop 04/27/18 at 19:59 Aspirin (Halfprin) 81 mg DAILY PO Last administered on 04/27/18at 08:07; Admin Dose 81 MG; Start 04/27/18 at 09:00 Benazepril HCl (Lotensin) 40 mg DAILY PO Last administered on 04/27/18at 08:07; Admin Dose 40 MG; Start 04/27/18 at 09:00 Atorvastatin Calcium (Lipitor) 20 mg DAILY@21 PO ; Start 04/27/18 at 21:00 IV Flush (NS 3 ml) 3 ml PER PROTOCOL IV ; Start 04/26/18 at 20:30 Ondansetron HCl (Zofran Inj) 4 mg Q6H PRN IV NAUSEA/VOMITING; Start 04/26/18 at 20:30 Acetaminophen (Tylenol Tab) 650 mg Q6H PRN PO .PAIN 1-3 OR TEMP; Start 04/26/18 at 20:30 Docusate Sodium (Colace) 100 mg Q12H PRN PO .CONSTIPATION; Start 04/26/18 at 20:30 Magnesium Hydroxide (Milk Of Mag) 30 ml DAILY PRN PO .CONSTIPATION; Start 04/26/18 at 20:30 Pantoprazole (Protonix Tab) 40 mg DAILY@06 PO Last administered on 04/27/18at 06:32; Admin Dose 40 MG; Start 04/27/18 at 06:00 Heparin Sodium (Porcine) (Heparin (5000 Units/1ml)) 5,000 unit Q8 SC Last administered on 04/27/18at 06:39; Admin Dose 5,000 UNIT; Start 04/26/18 at 22:00 Levalbuterol (Xopenex Neb) 1.25 mg Q4H RESP THERAPY HHN Last administered on 04/27/18 08:36; Admin Dose 1.25 MG; Start 04/26/18 at 21:00 Ipratropium [place] (Atrovent 0.02% (Neb)) 0.5 mg Q4H RESP THERAPY HHN Last administered on 04/27/18 08:36; Admin Dose 0.5 MG; Start 04/26/18 at 21:00 Levalbuterol (Xopenex Neb) 1.25 mg Q4H RESP THERAPY PRN HHN SHORTNESS OF BREATH; Start 04/26/18 at 20:30 Furosemide (Lasix) 40 mg BID DIURETICS IV Last administered on 04/27/18 08:08; Admin Dose 40 MG; Start 04/27/18 at 08:00 Prednisone (Prednisone) 40 mg DAILY PO Last administered on 04/27/18 08:07; Admin Dose 40 MG; Start 04/27/18 at 09:00; Stop 05/02/18 at 08:59 Levofloxacin/ Dextrose 150 ml @ 100 mls/hr Q24H IVPB ; Start 04/27/18 at 12:00; Stop 05/01/18 at 11:59 CRISPIN STONE NP Apr 27, 2018 11:13
[2018-04-27] MEDS ORDERED: ALBUTEROL 0.083% (NEB) 2.5 MG/3 ML AMP HHN PRN (11:30)
[2018-04-27] MEDS: METHYLPREDNISOLONE 40 MG INJ IV SCH ×2 (11:48→21:36)
[2018-04-27] MEDS ORDERED: LEVOFLOXACIN 750MG/D5W (PMX) 150 ML IVPB SCH (12:00)
--- NOTE | 2018-04-27 12:32 | CONS ---
Assessment/Plan Cardiology NYHA: III Heart Failure Type: Acute Heart Failure Type: Systolic Assessment/Plan Hospital Course (Demo Recall) Acute decompensated systolic congestive heart failure COPD exacerbation Respiratory failure requiring BiPAP History of hypertension History of dyslipidemia Active tobacco use -Patient with dyspnea on exertion over the past 2 years but worsening over the past few weeks. Preliminary echocardiogram with evidence of decreased left ventricular systolic function. Evidence of acute decompensated congestive heart failure as well as likely COPD exacerbation -Serial cardiac enzymes remain negative. -Telemetry reviewed with episodes of tachycardia, given baseline left bundle, it appears like episodes of NSVT as well as episodes of SVT with different morphology. -Would increase dose of beta-tyra and titrate as heart rate and blood press ure permits. -TIMOTHY inhibitor and titrate as renal function and blood pressure permits -Continue IV diuretics -Maintain potassium above 4.0 and magnesium above 2.0 -Smoking cessation Consultation Date/Type/Reason Admit Date/Time Type of Consult Cardiology Reason for Consultation Shortness of breath Date/Time of Note DATE: 04/27/18 TIME: 12:25 Hx of Present Illness This is a 62-year-old male with past medical history of hypertension, tobacco use, dyslipidemia who presents with progressive worsening shortness of breath. He has been having exertional shortness of breath for 2 years but worse over the past few weeks. Patient also with wheezing and fatigue over the past few days. Denies any chest pain, dizziness or lightheadedness. Because of worsening symptoms, patient came to emergency room for evaluation and care. He does see her primary care physician as an outpatient basis once every 3 months. In discussion with daughter bedside, unclear compliance with medications or proper lifestyle. He does still actively smoke. No known cardiac history. 12 point review of systems was performed with all pertinent positives and negatives mentioned above and all else is negative Past Medical History Medical History: high cholesterol, hypertension Home Meds Reported Medications Sildenafil Citrate* (Viagra*) 100 Mg Tablet, 100 MG PO NEEDED PRN for PRN, TAB 04/26/18 Benazepril Hcl* (Benazepril Hcl*) 40 Mg Tablet, 40 MG PO DAILY, #30 TAB 04/26/18 Hydrochlorothiazide* (Hydrochlorothiazide*) 12.5 Mg Tablet, 12.5 MG PO DAILY, #30 TAB 04/26/18 Aspirin* (Aspirin* EC) 81 Mg Tablet.dr, 81 MG PO DAILY, TAB 04/26/18 Simvastatin* (Zocor*) 40 Mg Tablet, 40 MG PO DAILY, #30 TAB 04/26/18 Ibuprofen* (Ibuprofen*) 600 Mg Tablet, 600 MG PO DAILY, TAB 04/26/18 Discontinued Reported Medications Ibuprofen* (Advil*) 200 Mg Capsule, 600 MG PO Q4 05/02/12 Medications Current Medications Aspirin (Halfprin) 81 mg DAILY PO Last administered on 04/27/18at 08:07; Admin Dose 81 MG; Start 04/27/18 at 09:00 Benazepril HCl (Lotensin) 40 mg DAILY PO Last administered on 04/27/18at 08:07; Admin Dose 40 MG; Start 04/27/18 at 09:00 Atorvastatin Calcium (Lipitor) 20 mg DAILY@21 PO ; Start 04/27/18 at 21:00 IV Flush (NS 3 ml) 3 ml PER PROTOCOL IV ; Start 04/26/18 at 20:30 Ondansetron HCl (Zofran Inj) 4 mg Q6H PRN IV NAUSEA/VOMITING; Start 04/26/18 at 20:30 Acetaminophen (Tylenol Tab) 650 mg Q6H PRN PO .PAIN 1-3 OR TEMP; Start 04/26/18 at 20:30 Docusate Sodium (Colace) 100 mg Q12H PRN PO .CONSTIPATION; Start 04/26/18 at 20:30 Magnesium Hydroxide (Milk Of Mag) 30 ml DAILY PRN PO .CONSTIPATION; Start 04/26/18 at 20:30 Pantoprazole (Protonix Tab) 40 mg DAILY@06 PO Last administered on 04/27/18at 06:32; Admin Dose 40 MG; Start 04/27/18 at 06:00 Heparin Sodium (Porcine) (Heparin (5000 Units/1ml)) 5,000 unit Q8 SC Last administered on 04/27/18at 06:39; Admin Dose 5,000 UNIT; Start 04/26/18 at 22:00 Furosemide (Lasix) 40 mg BID DIURETICS IV Last administered on 04/27/18at 08:08; Admin Dose 40 MG; Start 04/27/18 at 08:00 Levofloxacin/ Dextrose 150 ml @ 100 mls/hr Q24H IVPB ; Start 04/27/18 at 12:00; Stop 05/01/18 at 11:59 Metoprolol Succinate (Toprol Xl) 25 mg DAILY PO Last administered on 04/27/18at 11:48; Admin Dose 25 MG; Start 04/27/18 at 11:00 Methylprednisolone Sodium Succinate (Solu-Medrol) 40 mg Q12 IV Last administered on 04/27/18at 11:48; Admin Dose 40 MG; Start 04/27/18 at 11:00 Albuterol/ Ipratropium (Duoneb) 3 ml Q4H RESP THERAPY HHN ; Start 04/27/18 at 13:00 Albuterol (Proventil 0.083% (Neb)) 1.25 mg Q2H RESP THERAPY PRN HHN SHORTNESS OF BREATH; Start 04/27/18 at 11:30 Allergies: Coded Allergies: No Known Allergy (Unverified , 04/26/18) Past Surgical History Past Surgical Hx: no surgical history Social History Alcohol Use: occasionally Smoking Status: Current every day smoker Drug Use: none Exam/Review of Systems Vital Signs Vitals Vital Signs Date Temp Pulse Resp B/P (MAP) Pulse Ox O2 O2 Flow FiO2 Time Delivery Rate 04/27/18 98 21 11:31 04/27/18 98.2 81 20 118/75 BIPAP 11:30 (89) 04/27/18 4.0 00:25 Exam Exam On BiPAP, mildly dyspneic with extensively speaking Constitutional: alert, oriented Head: normocephalic Respiratory: other (Coarse breath sounds bilaterally with scattered crackles and expiratory wheeze) Cardiovascular: regular rate and rhythm (S1-S2 heard) Gastrointestinal: soft, non-tender, bowel sounds Extremities: edema (Trace) Labs Result Diagram: 04/27/18 0259 04/27/18 0259 Results 24hrs Laboratory Tests Test 04/26/18 15:59 04/26/18 16:14 04/26/18 16:15 04/26/18 22:06 Blood Gas Blood arterial Specimen Source Arterial Blood 04/26/2018 4:12:0 Date Drawn 1 PM Arterial Blood 7.370 pH (Temp corrected ) Arterial Blood 61.9 H pCO2 (Temp correct) Arterial Blood 60.7 L pO2 (Temp corrected ) Arterial Blood 35.0 H HCO3 Arterial Blood 6.8 H Base Excess Arterial Blood 90.2 L Oxygen Saturati on Simeon Test ACCEPTAB Arterial Blood Left Radial Gas Puncture Site Arterial 2.6 Blood Carboxyhe moglobin Arterial Blood 0.3 Methemoglobin Blood Gas A-a 124.2 H O2 Differential Oxyhemoglobin 87.6 L Percent Blood Gas 37.0 Temperature Blood Gas NASAL CANNULA Modality FiO2 36.0 Blood Gas MDA Notified Whom Blood Gas 04/26/2018 4:14:2 Notified Time 6 PM POC Venous 1.4 Lactate White Blood 13.0 H Count Red Blood Count 5.77 Hemoglobin 17.5 Hematocrit 55.2 H Mean 95.7 Corpuscular Volume Mean 30.3 Corpuscular Hemoglobin Mean 31.7 L Corpuscular Hemoglobin Conc ent Red Cell 13.6 Distribution Width Platelet Count 246 Mean Platelet 10.7 H Volume Immature 2.200 H Granulocytes % Neutrophils % 56.7 Segmented 61 Neutrophils % (Manual) Lymphocytes % 28.7 Lymphocytes % 28 (Manual) Reactive 2 H Lymphocytes % (Manual) Monocytes % 11.0 Monocytes % 5 (Manual) Eosinophils % 0.4 Eosinophils % 1 (Manual) Basophils % 1.0 Basophils % 1 (Manual) Metamyelocytes 1 H % (manual) Plasma Cells % 1 (manual) Nucleated Red 2 H Blood Cells % Immature 0.290 H Granulocytes # Neutrophils # 7.3 Lymphocytes 3.6 H (Manual) Lymphocytes # 3.7 H Reactive 0.2 H Lymphocytes # Monocytes # 1.4 H Monocytes # 0.6 (Manual) Eosinophils # 0.1 Basophils # 0.1 Basophils # 0.1 H (Manual) Metamyelocytes 0.1 H # Plasma Cells # 0.1 H (manual) Nucleated Red 0.1 H Blood Cells # Platelet NORMAL Estimate Giant Platelets 1 H Polychromasia 1+ Anisocytosis 1+ Microcytosis 1+ Macrocytosis 1+ Prothrombin 12.2 Time Prothrombin 1.0 Time Ratio INR 0.89 International Normalized Rati o Sodium Level 139 Potassium Level 4.3 Chloride Level 93 L Carbon Dioxide 35 H Level Anion Gap 11 Blood Urea 29 H Nitrogen Creatinine 0.78 Est Glomerular > 60 Filtrat Rate mL/min Glucose Level 107 Calcium Level 8.9 Total Bilirubin 0.6 Direct 0.00 Bilirubin Indirect 0.6 Bilirubin Aspartate Amino 43 Transf (AST/SGO T) Alanine 42 Aminotransferas e (ALT/SGPT) Alkaline 65 Phosphatase Troponin I 0.047 0.042 B-Type 5640 H Natriuretic Peptide Total Protein 8.0 Albumin 4.2 Globulin 3.80 H Albumin/Globuli 1.10 n Ratio Lactic Acid 3.6 *H Level Creatine Kinase 63 Creatine Kinase 7.9 Index Creatinine 4.96 H Kinase MB (Mass) Test 04/27/18 02:00 04/27/18 02:59 04/27/18 05:00 04/27/18 08:00 Blood Gas Blood arterial Blood arterial Blood arterial Specimen Source Arterial Blood 04/27/2018 2:05:4 04/27/2018 5:10:4 04/27/2018 10:53: Date Drawn 9 AM 9 AM 40 AM Arterial Blood 7.274 *L 7.285 *L 7.265 *L pH (Temp corrected ) Arterial Blood 78.3 H 76.6 H 90.2 *H pCO2 (Temp correct) Arterial Blood 120.1 H 80.1 112.9 H pO2 (Temp corrected ) Arterial Blood 35.5 H 35.6 H 40.0 H HCO3 Arterial Blood 5.0 H 5.4 H 8.3 H Base Excess Arterial Blood 97.8 94.5 L 97.7 Oxygen Saturati on Simeon Test ACCEPTAB ACCEPTAB ACCEPTAB Arterial Blood Right Radial Right Radial Right Radial Gas Puncture Site Arterial 0.8 0.3 0.4 Blood Carboxyhe moglobin Arterial Blood 0.4 0.4 0.4 Methemoglobin Blood Gas A-a 368.1 H 409.9 H 362.8 H O2 Differential Oxyhemoglobin 96.6 93.8 96.9 Percent Blood Gas 37.0 37.0 37.0 Temperature Blood Gas 18.0 30.0 30.0 Respiration Rate Blood Gas 18 30 31 Actual Respiration Rat e Blood Gas MASK - BIPAP MASK - BIPAP MASK - BIPAP Modality FiO2 80.0 80.0 80.0 Blood Gas 10 12 16 Pressure Support Blood Gas 15 18/6 24/8 IPAP/EPAP Ratio Blood Gas Chung FLORENTINO MD, M MD RDANG RN Critical Value Read Back Blood Gas REN MCCLURE TM Notified Whom Blood Gas 04/27/2018 2:15:4 04/27/2018 5:24:0 04/27/2018 10:59: Notified Time 7 AM 8 AM 55 AM White Blood 8.3 # Count Red Blood Count 5.45 Hemoglobin 16.4 Hematocrit 52.2 H Mean 95.8 Corpuscular Volume Mean 30.1 Corpuscular Hemoglobin Mean 31.4 L Corpuscular Hemoglobin Conc ent Red Cell 13.8 Distribution Width Platelet Count 238 Mean Platelet 10.2 Volume Immature 3.200 H Granulocytes % Neutrophils % 80.9 H Lymphocytes % 13.4 L Monocytes % 2.0 Eosinophils % 0.0 Basophils % 0.5 Nucleated Red 0.4 H Blood Cells % Immature 0.270 H Granulocytes # Neutrophils # 6.7 Lymphocytes # 1.1 Monocytes # 0.2 L Eosinophils # 0.0 Basophils # 0.0 Nucleated Red 0.0 Blood Cells # Sodium Level 141 Potassium Level 4.6 Chloride Level 94 L Carbon Dioxide 35 H Level Anion Gap 12 Blood Urea 29 H Nitrogen Creatinine 0.89 Est Glomerular > 60 Filtrat Rate mL/min Glucose Level 198 Hemoglobin A1c 5.8 Lactic Acid 2.4 *H Level Calcium Level 8.9 Magnesium Level 1.8 Total Bilirubin 0.3 Direct 0.00 Bilirubin Indirect 0.3 Bilirubin Aspartate Amino 37 Transf (AST/SGO T) Alanine 37 Aminotransferas e (ALT/SGPT) Alkaline 44 Phosphatase Creatine Kinase 62 61 Creatine Kinase 7.1 6.6 Index Creatinine 4.42 H 4.05 H Kinase MB (Mass) Troponin I 0.031 0.029 Total Protein 7.6 Albumin 4.1 Globulin 3.50 H Albumin/Globuli 1.17 n Ratio Triglycerides 124 Level Cholesterol 156 Level LDL 97 Cholesterol, Calculated HDL Cholesterol 34 Cholesterol/HDL 4.5 Ratio Thyroid 0.389 L Stimulating Hormone (TSH) Free Thyroxine 1.51 Free 3.60 Triiodothyronin e (T3) pg/mL Test 04/27/18 10:24 Lactic Acid 2.0 Level Imaging Imaging ECG with sinus rhythm, left bundle branch block, nonspecific ST abnormalities Medications Medications Current Medications Aspirin (Halfprin) 81 mg DAILY PO Last administered on 04/27/18at 08:07; Admin Dose 81 MG; Start 04/27/18 at 09:00 Benazepril HCl (Lotensin) 40 mg DAILY PO Last administered on 04/27/18at 08:07; Admin Dose 40 MG; Start 04/27/18 at 09:00 Atorvastatin Calcium (Lipitor) 20 mg DAILY@21 PO ; Start 04/27/18 at 21:00 IV Flush (NS 3 ml) 3 ml PER PROTOCOL IV ; Start 04/26/18 at 20:30 Ondansetron HCl (Zofran Inj) 4 mg Q6H PRN IV NAUSEA/VOMITING; Start 04/26/18 at 20:30 Acetaminophen (Tylenol Tab) 650 mg Q6H PRN PO .PAIN 1-3 OR TEMP; Start 04/26/18 at 20:30 Docusate Sodium (Colace) 100 mg Q12H PRN PO .CONSTIPATION; Start 04/26/18 at 20:30 Magnesium Hydroxide (Milk Of Mag) 30 ml DAILY PRN PO .CONSTIPATION; Start 04/26/18 at 20:30 Pantoprazole (Protonix Tab) 40 mg DAILY@06 PO Last administered on 04/27/18at 06:32; Admin Dose 40 MG; Start 04/27/18 at 06:00 Heparin Sodium (Porcine) (Heparin (5000 Units/1ml)) 5,000 unit Q8 SC Last administered on 04/27/18at 06:39; Admin Dose 5,000 UNIT; Start 04/26/18 at 22:00 Furosemide (Lasix) 40 mg BID DIURETICS IV Last administered on 04/27/18at 08:08; Admin Dose 40 MG; Start 04/27/18 at 08:00 Levofloxacin/ Dextrose 150 ml @ 100 mls/hr Q24H IVPB ; Start 04/27/18 at 12:00; Stop 05/01/18 at 11:59 Metoprolol Succinate (Toprol Xl) 25 mg DAILY PO Last administered on 04/27/18at 11:48; Admin Dose 25 MG; Start 04/27/18 at 11:00 Methylprednisolone Sodium Succinate (Solu-Medrol) 40 mg Q12 IV Last administered on 04/27/18at 11:48; Admin Dose 40 MG; Start 04/27/18 at 11:00 Albuterol/ Ipratropium (Duoneb) 3 ml Q4H RESP THERAPY HHN ; Start 04/27/18 at 13:00 Albuterol (Proventil 0.083% (Neb)) 1.25 mg Q2H RESP THERAPY PRN HHN SHORTNESS OF BREATH; Start 04/27/18 at 11:30 Driss Bolanos DO Apr 27, 2018 12:32
[2018-04-27] MEDS: ALBUTEROL/IPRATROPIUM (NEB) 3 ML AMP HHN SCH ×3 (12:50→20:02)
[2018-04-27] MEDS: METOPROLOL (XL) 25 MG TAB PO SCH ×2 (12:56→21:37)
--- NOTE | 2018-04-27 13:34 | CONS ---
DATE OF ADMISSION: 04/26/2018 DATE OF CONSULTATION: TYPE OF CONSULTATION: Pulmonary. REASON FOR CONSULTATION: Shortness of breath and hypercapnia. Thank you, Dr. David, for this consultation. HISTORY OF PRESENT ILLNESS: This is an obese 62-year-old gentleman with history of extensive tobacco use, 1-week history of progressive dyspnea, cough, shortness of breath and this morning, found to be somnolent on bilevel ventilation, arterial blood gas demonstrating hypercapnia. In addition, he has been having runs of ventricular tachycardia. The patient is a poor historian and unable to give me further details. No prior history of obstructive sleep apnea. Chest x-ray demonstrated mild cardiom egaly with congestive cardiac failure. Echocardiogram preliminary report shows decreased ejection fr action at approximately 25%. PAST MEDICAL HISTORY: As above. MEDICATIONS: Per chart. ALLERGIES: NONE. SOCIAL HISTORY: He smokes 1/2 to 3/4 pack per day for 30 plus years. PHYSICAL EXAMINATION GENERAL: Obese gentleman, now more alert on bilevel ventilation. VITAL SIGNS: Currently afebrile, pulse is 80, blood pressure 118/75, O2 saturation 96% on FiO2 of 40 %. NECK: Supple. No JVD or lymphadenopathy. CARDIAC: S1, S2. No added sounds or murmurs. CHEST: Diminished air entry bilaterally. ABDOMEN: Soft, nontender. No guarding or rebound. EXTREMITIES: No cyanosis, clubbing. A 1+ edema. NEUROLOGIC: Generalized weakness. LABORATORY DATA: White count 8.3, hemoglobin 16.4, platelets of 238. Chemistry: BUN 29, creatinine 0.89. INR was 0.89. Also, arterial blood gas this morning: pH 7.26, pCO2 of 90, pO2 of 112. DIAGNOSTIC DATA: EKG as above. IMPRESSION AND PLAN: Acute on chronic hypoxemic and hypercapnic respiratory failure likely secondary to combination of chronic obstructive pulmonary disease exacerbation and congestive cardiac failure. The patient may also have a component of community-acquired pneumonia, as well. The patient will require: 1. Diuresis. 2. Supplemental O2. 3. Bronchodilators. 4. Steroid taper. 5. Switch from Levaquin to ceftriaxone given bundle branch block and evidence of ventricular tachyca rdia. 6. Outpatient sleep study. 7. Outpatient nocturnal polysomnogram. Dictated By: MILANA CHINCHILLA MD SV/GINNY Conf#: [id number] [facility]#: [id number] CC: JULI DAVID MD; KERWIN PANDYA DO;*[facility]*
--- NOTE | 2018-04-27 13:34 | RADRPT ---
Echocardiogram Report Patient Name: CRISTELA CHOWDHURYPatient ID: [id number] : 1955 (62y 6m)Study Date: 04/27/2018 10:02:05 AM Gender: MAccession #: [id number] Tech: LE Location: Ref.Physician: JULI FLORENTINO Height(Cm): BSA: Weight(Kg): Quality: GoodAccount #: Procedures: Echocardiographic Report: Transthoracic echocardiogram with complete 2D, M-Mode, and doppler examination. Indications: Congestive Heart Failure. Measurements: 2D/M Mode Doppler Measurement Value Normal Range Measurement Value Normal Range LVIDd 2D 6.3 [ 4.2 - 5.8 ] cm MILAGROS Vmax 2.5 [ 2.0 - 4.0 ] cm2 LVIDs 2D 5.6 [ 2.5 - 4.0 ] cm AV Mean Tj 1.1 [ 70.0 - 90.0 ] cm/sec LVPWd 2D 1.3 [ 0.6 - 1.0 ] cm AV Mean PG 5.0 [ 2.0 - 4.0 ] mmHg IVSd 2D 1.3 [ 0.6 - 1.0 ] cm AV Peak Tj 1.4 [ 100.0 - 170.0 ] cm/sec IVS/LVPW 2D 1.0 ratio AV Peak PG 8.0 [ 2.0 - 9.0 ] mmHg LVOT Diam 2.0 [ 2.3 - 2.9 ] cm AV VTI 28.8 cm LVOT Area 3.1 cm2 LVOT Peak Tj 1.1 [ 70.0 - 110.0 ] cm/sec LVOT Peak PG 5.0 [ 2.0 - 6.0 ] mmHg MV E Peak Tj 0.9 [ 60.0 - 130.0 ] cm/sec MV A Peak Tj 1.1 [ 100.0 - 120.0 ] cm/sec MV E/A 0.8 [ 0.8 - 1.5 ] ratio MV Decel Time 208 [ 104 - 258 ] msec Lat E` Tj 0.1 [ 10.0 - 15.0 ] cm/sec Med E` Tj 0.0 cm/sec MV E/A 0.8 [ 0.8 - 1.5 ] ratio TR Peak Tj 2.6 [ 100.0 - 280.0 ] cm/sec TR Peak PG 27.0 mmHg PV Peak Tj 0.8 [ 40.0 - 80.0 ] cm/sec PV Peak PG 2.0 mmHg RA Pressure 15.0 mmHg Findings: Left Ventricle: Mild concentric left ventricular hypertrophy. Moderate enlargement of left ventricle cavity. Severe left ventricular systolic dysfunction. Ejection fraction is visually estimated at 30 %. Tissue Doppler/Mitral Doppler indices are consistent with impaired relaxation (Stage I diastolic dysfunction). Right Ventricle: Normal right ventricular size. Normal right ventricular systolic function. Left Atrium: There is moderate enlargement of left atrium. Right Atrium: There is mild enlargement of right atrium. Mitral Valve: Normal appearance of the mitral valve. Mild mitral valve regurgitation. Aortic Valve: Normal appearance of the aortic valve. No significant aortic stenosis with trivial insufficiency. Tricuspid Valve: Normal appearance of the tricuspid valve. Right ventricular systolic pressure is consistent with mild pulmonary hypertension. Estimated peak PA systolic pressure 42 mmHg. There is mild tricuspid regurgitation. Pulmonic Valve: Pulmonic valve not well visualized. No evidence of pulmonic regurgitation. Pericardium: Normal pericardium with no significant pericardial effusion. Aorta: Normal aortic root. IVC: Dilated inferior vena cava with poor inspiratory collapse consistent with elevated right atrial pressures. Conclusions: Mild concentric left ventricular hypertrophy. Moderate enlargement of left ventricle cavity. Severe left ventricular systolic dysfunction. Ejection fraction is visually estimated at 30 %. Tissue Doppler/Mitral Doppler indices are consistent with impaired relaxation (Stage I diastolic dysfunction). Normal right ventricular size. Normal right ventricular systolic function. There is moderate enlargement of left atrium. There is mild enlargement of right atrium. Mild mitral valve regurgitation. No significant aortic stenosis with trivial insufficiency. Right ventricular systolic pressure is consistent with mild pulmonary hypertension. Estimated peak PA systolic pressure 42 mmHg. There is mild tricuspid regurgitation. Normal pericardium with no significant pericardial effusion. Electronically Signed By: Driss Bolanos 2018-04-27 13:33:43 PST
[2018-04-27] MEDS ORDERED: MAGNESIUM SULFATE 1 GM/D5W 100 ML IVPB ONE (14:00)
[2018-04-27] MEDS ORDERED: MAGNESIUM SULFATE 3 GM in DEXTROSE 5% 100 ML IVPB ONE (14:00)
--- NOTE | 2018-04-27 14:14 | RADRPT ---
Vent Rate: 103 bpm RR Interval: 0 msec VT Interval: 136 msec QRS Duration: 142 msec QT Interval: 374 msec QTC Interval: 489 msec P-R-T [place]: 31 - 30 - 0 degrees Sinus tachycardia Left bundle branch block Abnormal ECG Electronically Signed By: Rasheed Quiles
[2018-04-27] MEDS: CEFTRIAXONE 2 GM/50 ML (PMX) 50 ML IVPB SCH (14:19)
[2018-04-27] MEDS: ACETAMINOPHEN 325 MG TAB PO PRN (18:50)
--- NOTE | 2018-04-27 20:06 | QN ---
Documentation Comment Echo result reviewed=>Systolic CHF w/ decreased EF.... F/u cards recs.No further need for CT Chest to r/o PE to explain his respiratory failure. CRISPIN STONE NP Apr 27, 2018 20:06
[2018-04-27] MEDS: ATORVASTATIN 20 MG TAB PO SCH (21:37)
[2018-04-28] VITALS (27 sets, daily range): BP systolic 93–127; BP diastolic 54–100; PULSE 67–142; RESP 10–23
[2018-04-28] MEDS: ALBUTEROL/IPRATROPIUM (NEB) 3 ML AMP HHN SCH ×6 (01:15→20:17)
[2018-04-28] MEDS: HEPARIN 5,000 UNIT/1 ML VIAL SC SCH ×3 (05:51→21:07)
[2018-04-28] MEDS: FUROSEMIDE 40 MG INJ IV SCH ×2 (05:51→17:17)
[2018-04-28] MEDS: PANTOPRAZOLE (EC) 40 MG TAB PO SCH (05:51)
[2018-04-28] MEDS: ACETAMINOPHEN 325 MG TAB PO PRN (06:38)
[2018-04-28] MEDS ORDERED: MONTELUKAST 10 MG TAB PO ONE (07:30)
--- NOTE | 2018-04-28 07:43 | PN ---
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 He is on TIMOTHY inhibitor, cardioselective beta-blockade, and diuresis. We will go ahead and add in low-dose spironolactone to his regimen and titrate up on these medications as tolerated. He is improved and may be able to be transferred out of the ICU later today (2) Current every day smoker Status: Chronic Comment: Strongly counseled again with his present (3) COPD exacerbation Status: Acute Comment: He has some degree of this and is on steroids. We will go ahead and add in the inhaler as appropriate as well as Singulair (4) Essential hypertension Status: Chronic Comment: TIMOTHY inhibitor and beta-tyra as management (5) Hyperlipidemia Status: Chronic Comment: Statin therapy to continue Qualifiers: Hyperlipidemia type: pure hypercholesterolemia Qualified Codes: E78.00 - Pure hypercholesterolemia, unspecified (6) Grade I diastolic dysfunction Status: Chronic Comment: Noted. Control blood pressure and use of beta-blockade. (7) Obesity (BMI 30-39.9) Status: Chronic Comment: Calorie restriction diet. Please note I suspect he has obstructive sleep apnea but that will need to be worked up as an outpatient. Result Diagram: 04/28/18 0443 04/28/18 0443 Results 24hrs Laboratory Tests Test 04/27/18 08:00 04/27/18 10:24 04/27/18 14:00 04/27/18 15:43 Blood Gas Blood arterial Blood arterial Specimen Source Arterial Blood 04/27/2018 10:53: 04/27/2018 2:00:2 Date Drawn 40 AM 0 PM Arterial Blood 7.265 *L 7.356 pH (Temp corrected) Arterial Blood 90.2 *H 65.8 H pCO2 (Temp correct) Arterial Blood 112.9 H 56.2 L pO2 (Temp corrected) Arterial Blood 40.0 H 36.0 H HCO3 Arterial Blood 8.3 H 7.5 H Base Excess Arterial Blood 97.7 88.0 L Oxygen Saturatio n [place] Test ACCEPTAB ACCEPTAB Arterial Blood Right Radial Right Radial Gas Puncture Site Arterial 0.4 0.5 Blood Carboxyhem oglobin Arterial Blood 0.4 0.3 Methemoglobin Blood Gas A-a O2 362.8 H 116.9 H Differential Oxyhemoglobin 96.9 87.3 L Percent Blood Gas 37.0 37.0 Temperature Blood Gas 30.0 30.0 Respiration Rate Blood Gas Actual 31 30 Respiration Rate Blood Gas MASK - BIPAP MASK - BIPAP Modality FiO2 80.0 35.0 Blood Gas 16 16 Pressure Support Blood Gas 13/10 13/10 IPAP/EPAP Ratio Blood Gas RDANG RN Critical Value Read Back Blood Gas TM TM Notified Whom Blood Gas 04/27/2018 10:59: 04/27/2018 2:10:0 Notified Time 55 AM 7 PM Creatine Kinase 61 Creatine Kinase 6.6 Index Creatinine 4.05 H Kinase MB (Mass) Troponin I 0.029 Free Thyroxine 1.51 Free 3.60 Triiodothyronine (T3) pg/mL Lactic Acid 2.0 Level Urine Color STRAW Urine Clarity CLEAR Urine pH 6 Urine Specific 1.020 [place] Urine Ketones NEGATIVE Urine Nitrite NEGATIVE Urine Bilirubin NEGATIVE Urine 0.2 E.U./dL Urobilinogen Urine Leukocyte NEGATIVE Esterase Urine 0 Microscopic RBC Urine 1 Microscopic WBC Urine Hemoglobin NEGATIVE Urine Glucose NEGATIVE Urine Total 1+ Protein Test 04/28/18 04:43 White Blood 16.7 #H Count Red Blood Count 5.42 Hemoglobin 16.6 Hematocrit 52.8 H Mean Corpuscular 97.4 Volume Mean Corpuscular 30.6 Hemoglobin Mean Corpuscular 31.4 L Hemoglobin [place] nt Red Cell 14.0 Distribution Width Platelet Count 259 Mean Platelet 10.8 H Volume Immature 1.800 H Granulocytes % Neutrophils % 83.0 H Lymphocytes % 7.9 L Monocytes % 7.1 Eosinophils % 0.0 Basophils % 0.2 Nucleated Red 0.1 H Blood Cells % Immature 0.300 H Granulocytes # Neutrophils # 13.8 H Lymphocytes # 1.3 Monocytes # 1.2 H Eosinophils # 0.0 Basophils # 0.0 Nucleated Red 0.0 Blood Cells # Sodium Level 139 Potassium Level 4.8 Chloride Level 92 L Carbon Dioxide 37 H Level Anion Gap 10 Blood Urea 39 H Nitrogen Creatinine 1.18 Est Glomerular > 60 Filtrat Rate mL/min Glucose Level 134 # Calcium Level 8.9 Total Bilirubin 0.3 Direct Bilirubin 0.00 Indirect 0.3 Bilirubin Aspartate Amino 30 Transf (AST/SGOT ) Alanine 36 Aminotransferase (ALT/SGPT) Alkaline 54 Phosphatase Total Protein 7.1 Albumin 3.7 Globulin 3.40 H Albumin/Globulin 1.08 Ratio Subjective 24 Hr Interval Summary Free Text/Dictation She reports he does not like the BiPAP mask. Constitutional: no complaints (Denies fevers chills or sweats) Respiratory: cough (Cough has improved), shortness of breath (Still present but improved), wheezing (No further wheezing) Cardiovascular: no complaints (No chest pain no palpitations no orthopnea no PND) Gastrointestinal: no complaints Genitourinary: no complaints Musculoskeletal: no complaints Exam/Review of Systems Exam Vitals Vital Signs Date Temp Pulse Resp B/P (MAP) Pulse Ox O2 O2 Flow FiO2 Time Delivery Rate 04/28/18 75 15 123/74 90 Nasal 6.0 06:00 (90) Cannula 04/28/18 98.0 04:00 04/27/18 35 13:10 Intake and Output 04/27/18 04/27/18 04/28/18 1414:59 22:59 06:59 IntakeIntake Total 270 ml 240 ml 425 ml OutputOutput Total 300 ml 360 ml 525 ml BalanceBalance -30 ml -120 ml -100 ml Constitutional: alert, oriented Head: normocephalic, atraumatic Neck: supple, non-tender Respiratory: clear to auscultation, crackles/rales (Bibasilar crackles one quarter the way up), other (Inspiratory to expiratory ratio is even i.e. abnormal) Cardiovascular: regular rate and rhythm, nl pulses, other (I do not hear an S3) Gastrointestinal: soft, nl liver, spleen, non-tender Extremities: edema (Trace edema) Results Results 24hrs Laboratory Tests Test 04/27/18 08:00 04/27/18 10:24 04/27/18 14:00 04/27/18 15:43 Blood Gas Blood arterial Blood arterial Specimen Source Arterial Blood 04/27/2018 10:53: 04/27/2018 2:00:2 Date Drawn 40 AM 0 PM Arterial Blood 7.265 *L 7.356 pH (Temp corrected) Arterial Blood 90.2 *H 65.8 H pCO2 (Temp correct) Arterial Blood 112.9 H 56.2 L pO2 (Temp corrected) Arterial Blood 40.0 H 36.0 H HCO3 Arterial Blood 8.3 H 7.5 H Base Excess Arterial Blood 97.7 88.0 L Oxygen Saturatio n [place] Test ACCEPTAB ACCEPTAB Arterial Blood Right Radial Right Radial Gas Puncture Site Arterial 0.4 0.5 Blood Carboxyhem oglobin Arterial Blood 0.4 0.3 Methemoglobin Blood Gas A-a O2 362.8 H 116.9 H Differential Oxyhemoglobin 96.9 87.3 L Percent Blood Gas 37.0 37.0 Temperature Blood Gas 30.0 30.0 Respiration Rate Blood Gas Actual 31 30 Respiration Rate Blood Gas MASK - BIPAP MASK - BIPAP Modality FiO2 80.0 35.0 Blood Gas 16 16 Pressure Support Blood Gas 13/10 13/10 IPAP/EPAP Ratio Blood Gas RDANG RN Critical Value Read Back Blood Gas TM TM Notified Whom Blood Gas 04/27/2018 10:59: 04/27/2018 2:10:0 Notified Time 55 AM 7 PM Creatine Kinase 61 Creatine Kinase 6.6 Index Creatinine 4.05 H Kinase MB (Mass) Troponin I 0.029 Free Thyroxine 1.51 Free 3.60 Triiodothyronine (T3) pg/mL Lactic Acid 2.0 Level Urine Color STRAW Urine Clarity CLEAR Urine pH 6 Urine Specific 1.020 [place] Urine Ketones NEGATIVE Urine Nitrite NEGATIVE Urine Bilirubin NEGATIVE Urine 0.2 E.U./dL Urobilinogen Urine Leukocyte NEGATIVE Esterase Urine 0 Microscopic RBC Urine 1 Microscopic WBC Urine Hemoglobin NEGATIVE Urine Glucose NEGATIVE Urine Total 1+ Protein Test 04/28/18 04:43 White Blood 16.7 #H Count Red Blood Count 5.42 Hemoglobin 16.6 Hematocrit 52.8 H Mean Corpuscular 97.4 Volume Mean Corpuscular 30.6 Hemoglobin Mean Corpuscular 31.4 L Hemoglobin [place] nt Red Cell 14.0 Distribution Width Platelet Count 259 Mean Platelet 10.8 H Volume Immature 1.800 H Granulocytes % Neutrophils % 83.0 H Lymphocytes % 7.9 L Monocytes % 7.1 Eosinophils % 0.0 Basophils % 0.2 Nucleated Red 0.1 H Blood Cells % Immature 0.300 H Granulocytes # Neutrophils # 13.8 H Lymphocytes # 1.3 Monocytes # 1.2 H Eosinophils # 0.0 Basophils # 0.0 Nucleated Red 0.0 Blood Cells # Sodium Level 139 Potassium Level 4.8 Chloride Level 92 L Carbon Dioxide 37 H Level Anion Gap 10 Blood Urea 39 H Nitrogen Creatinine 1.18 Est Glomerular > 60 Filtrat Rate mL/min Glucose Level 134 # Calcium Level 8.9 Total Bilirubin 0.3 Direct Bilirubin 0.00 Indirect 0.3 Bilirubin Aspartate Amino 30 Transf (AST/SGOT ) Alanine 36 Aminotransferase (ALT/SGPT) Alkaline 54 Phosphatase Total Protein 7.1 Albumin 3.7 Globulin 3.40 H Albumin/Globulin 1.08 Ratio Medications Medication Current Medications Aspirin (Halfprin) 81 mg DAILY PO Last administered on 04/27/18 08:07; Admin Dose 81 MG; Start 04/27/18 at 09:00 Atorvastatin Calcium (Lipitor) 20 mg DAILY@21 PO Last administered on 04/27/18 21:37; Admin Dose 20 MG; Start 04/27/18 at 21:00 IV Flush (NS 3 ml) 3 ml PER PROTOCOL IV ; Start 04/26/18 at 20:30 Ondansetron HCl (Zofran Inj) 4 mg Q6H PRN IV NAUSEA/VOMITING; Start 04/26/18 at 20:30 Acetaminophen (Tylenol Tab) 650 mg Q6H PRN PO .PAIN 1-3 OR TEMP Last ad ministered on 04/28/18 06:38; Admin Dose 650 MG; Start 04/26/18 at 20:30 Docusate Sodium (Colace) 100 mg Q12H PRN PO .CONSTIPATION; Start 04/26/18 at 20:30 Magnesium Hydroxide (Milk Of Mag) 30 ml DAILY PRN PO .CONSTIPATION; Start 04/26/18 at 20:30 Pantoprazole (Protonix Tab) 40 mg DAILY@06 PO Last administered on 04/28/18 05:51; Admin Dose 40 MG; Start 04/27/18 at 06:00 Heparin Sodium (Porcine) (Heparin (5000 Units/1ml)) 5,000 unit Q8 SC Last administered on 04/27/18 21:49; Admin Dose 5,000 UNIT; Start 04/26/18 at 22:00 Furosemide (Lasix) 40 mg BID DIURETICS IV Last administered on 3/9/19at 05:51; Admin Dose 40 MG; Start 04/27/18 at 08:00 Methylprednisolone Sodium Succinate (Solu-Medrol) 40 mg Q12 IV Last administered on 04/27/18at 21:36; Admin Dose 40 MG; Start 04/27/18 at 11:00 Albuterol/ Ipratropium (Duoneb) 3 ml Q4H RESP THERAPY HHN Last administered on 04/28/18at 05:09; Admin Dose 3 ML; Start 04/27/18 at 13:00 Albuterol (Proventil 0.083% (Neb)) 1.25 mg Q2H RESP THERAPY PRN HHN SHORTNESS OF BREATH; Start 04/27/18 at 11:30 Benazepril HCl (Lotensin) 10 mg BID PO ; Start 04/28/18 at 09:00 Metoprolol Succinate (Toprol Xl) 25 mg BID PO Last administered on 04/27/18at 21:37; Admin Dose 25 MG; Start 04/27/18 at 13:00 Ceftriaxone Sodium 50 ml @ 100 mls/hr Q24H IVPB Last administered on 04/27/18at 14:19; Admin Dose 100 MLS/HR; Start 04/27/18 at 14:00 Montelukast Sodium (Singulair) 10 mg HS PO ; Start 04/28/18 at 21:00; Status UNV Montelukast Sodium (Singulair) 10 mg ONCE ONCE PO ; Start 04/28/18 at 07:30; Stop 04/28/18 at 07:31; Status UNV Fluticasone/ Vilanterol (Breo Ellipta 100-25 Mcg Inh) 1 inh DAILY INH ; Start 04/28/18 at 09:00; Status UNV Tiotropium [place] (Spiriva) 1 inh DAILY INH ; Start 04/28/18 at 09:00; Status UNV Spironolactone (Aldactone) 25 mg DAILY PO ; Start 04/28/18 at 09:00; Status UNV EZRA BAKER MD Apr 28, 2018 07:43
[2018-04-28] MEDS: METHYLPREDNISOLONE 40 MG INJ IV SCH ×2 (08:26→21:03)
[2018-04-28] MEDS: ASPIRIN (EC) 81 MG TAB PO SCH (08:27)
[2018-04-28] MEDS: BENAZEPRIL 10 MG TAB PO SCH ×2 (08:27→21:08)
[2018-04-28] MEDS: SPIRONOLACTONE 25 MG TAB PO SCH (08:27)
[2018-04-28] MEDS: METOPROLOL (XL) 25 MG TAB PO SCH ×2 (08:28→21:08)
--- NOTE | 2018-04-28 10:31 | CONS ---
Consult Date/Type/Reason Admit Date/Time Apr 26, 2018 at 19:40 Initial Consult Date Type of Consult Pulmonary Date/Time of Note DATE: 04/28/18 TIME: 10:29 Subjective Patient awake alert this morning. States he is not short of breath. Wore BiPAP overnight now on nasal cannula. Objective Vital Signs Date Temp Pulse Resp B/P (MAP) Pulse Ox O2 O2 Flow FiO2 Time Delivery Rate 04/28/18 92 16 92 Nasal 5.0 08:57 Cannula 04/28/18 123/74 06:00 (90) 04/28/18 98.0 04:00 04/27/18 35 13:10 Intake and Output 04/27/18 04/27/18 04/28/18 1414:59 22:59 06:59 IntakeIntake Total 270 ml 240 ml 425 ml OutputOutput Total 300 ml 360 ml 525 ml BalanceBalance -30 ml -120 ml -100 ml Exam GENERAL: Well-nourished well-developed gentleman comfortable at rest no acute distress VITAL SIGNS: per chart NECK: Supple. No JVD or lymphadenopathy. CARDIAC EXAM: S1, S2. No added sounds or murmurs. CHEST: Edema +1 diminished air entry bilaterally with rales and wheezes ABDOMEN: Soft, nontender. No guarding or rebound. EXTREMITIES: No cyanosis, clubbing edema +1 NEUROLOGIC: Generalized weakness. No focal deficits. Results/Medications Result Diagram: 04/28/18 0443 04/28/18 0443 Results 24 hrs Laboratory Tests Test 04/27/18 14:00 04/27/18 15:43 04/28/18 04:43 04/28/18 07:00 Blood Gas Blood arterial Blood arterial Specimen Source Arterial Blood 04/27/2018 2:00:2 04/28/2018 8:21:5 Date Drawn 0 PM 5 AM Arterial Blood 7.356 7.377 pH (Temp corrected) Arterial Blood 65.8 H 65.5 H pCO2 (Temp correct) Arterial Blood 56.2 L 62.0 L pO2 (Temp corrected) Arterial Blood 36.0 H 37.6 H HCO3 Arterial Blood 7.5 H 9.1 H Base Excess Arterial Blood 88.0 L 90.6 L Oxygen Saturatio n [place] Test ACCEPTAB ACCEPTAB Arterial Blood Right Radial Right Radial Gas Puncture Site Arterial 0.5 0.4 Blood Carboxyhem oglobin Arterial Blood 0.3 0.2 Methemoglobin Blood Gas A-a O2 116.9 H 118.7 H Differential Oxyhemoglobin 87.3 L 90.1 L Percent Blood Gas 37.0 37.0 Temperature Blood Gas 30.0 Respiration Rate Blood Gas Actual 30 Respiration Rate Blood Gas MASK - BIPAP NASAL CANNULA Modality FiO2 35.0 36.0 Blood Gas 16 Pressure Support Blood Gas 24/8 IPAP/EPAP Ratio Blood Gas M.D. Notified Whom Blood Gas 04/27/2018 2:10:0 04/28/2018 8:33:2 Notified Time 7 PM 0 AM Urine Color STRAW Urine Clarity CLEAR Urine pH 6 Urine Specific 1.020 [place] Urine Ketones NEGATIVE Urine Nitrite NEGATIVE Urine Bilirubin NEGATIVE Urine 0.2 E.U./dL Urobilinogen Urine Leukocyte NEGATIVE Esterase Urine 0 Microscopic RBC Urine 1 Microscopic WBC Urine Hemoglobin NEGATIVE Urine Glucose NEGATIVE Urine Total 1+ Protein White Blood 16.7 #H Count Red Blood Count 5.42 Hemoglobin 16.6 Hematocrit 52.8 H Mean Corpuscular 97.4 Volume Mean Corpuscular 30.6 Hemoglobin Mean Corpuscular 31.4 L Hemoglobin [place] nt Red Cell 14.0 Distribution Width Platelet Count 259 Mean Platelet 10.8 H Volume Immature 1.800 H Granulocytes % Neutrophils % 83.0 H Lymphocytes % 7.9 L Monocytes % 7.1 Eosinophils % 0.0 Basophils % 0.2 Nucleated Red 0.1 H Blood Cells % Immature 0.300 H Granulocytes # Neutrophils # 13.8 H Lymphocytes # 1.3 Monocytes # 1.2 H Eosinophils # 0.0 Basophils # 0.0 Nucleated Red 0.0 Blood Cells # Sodium Level 139 Potassium Level 4.8 Chloride Level 92 L Carbon Dioxide 37 H Level Anion Gap 10 Blood Urea 39 H Nitrogen Creatinine 1.18 Est Glomerular > 60 Filtrat Rate mL/min Glucose Level 134 # Calcium Level 8.9 Total Bilirubin 0.3 Direct Bilirubin 0.00 Indirect 0.3 Bilirubin Aspartate Amino 30 Transf (AST/SGOT ) Alanine 36 Aminotransferase (ALT/SGPT) Alkaline 54 Phosphatase Total Protein 7.1 Albumin 3.7 Globulin 3.40 H Albumin/Globulin 1.08 Ratio Medications Current Medications Aspirin (Halfprin) 81 mg DAILY PO Last administered on 04/28/18at 08:27; Admin Dose 81 MG; Start 04/27/18 at 09:00 Atorvastatin Calcium (Lipitor) 20 mg DAILY@21 PO Last administered on 04/27/18 21:37; Admin Dose 20 MG; Start 04/27/18 at 21:00 IV Flush (NS 3 ml) 3 ml PER PROTOCOL IV ; Start 04/26/18 at 20:30 Ondansetron HCl (Zofran Inj) 4 mg Q6H PRN IV NAUSEA/VOMITING; Start 04/26/18 at 20:30 Acetaminophen (Tylenol Tab) 650 mg Q6H PRN PO .PAIN 1-3 OR TEMP Last administered on 04/28/18 06:38; Admin Dose 650 MG; Start 04/26/18 at 20:30 Docusate Sodium (Colace) 100 mg Q12H PRN PO .CONSTIPATION; Start 04/26/18 at 20:30 Magnesium Hydroxide (Milk Of Mag) 30 ml DAILY PRN PO .CONSTIPATION; Start 04/26/18 at 20:30 Pantoprazole (Protonix Tab) 40 mg DAILY@06 PO Last administered on 04/28/18 05:51; Admin Dose 40 MG; Start 04/27/18 at 06:00 Heparin Sodium (Porcine) (Heparin (5000 Units/1ml)) 5,000 unit Q8 SC Last administered on 04/27/18 21:49; Admin Dose 5,000 UNIT; Start 04/26/18 at 22:00 Furosemide (Lasix) 40 mg BID DIURETICS IV Last administered on 04/28/18 05:51; Admin Dose 40 MG; Start 04/27/18 at 08:00 Methylprednisolone Sodium Succinate (Solu-Medrol) 40 mg Q12 IV Last administered on 04/28/18 08:26; Admin Dose 40 MG; Start 04/27/18 at 11:00 Albuterol/ Ipratropium (Duoneb) 3 ml Q4H RESP THERAPY HHN Last administered on 04/28/18 08:56; Admin Dose 3 ML; Start 04/27/18 at 13:00 Albuterol (Proventil 0.083% (Neb)) 1.25 mg Q2H RESP THERAPY PRN HHN SHORTNESS OF BREATH; Start 04/27/18 at 11:30 Benazepril HCl (Lotensin) 10 mg BID PO Last administered on 04/28/18 08:27; Admin Dose 10 MG; Start 04/28/18 at 09:00 Metoprolol Succinate (Toprol Xl) 25 mg BID PO Last administered on 04/28/18at 08:28; Admin Dose 25 MG; Start 04/27/18 at 13:00 Ceftriaxone Sodium 50 ml @ 100 mls/hr Q24H IVPB Last administered on 04/27/18at 14:19; Admin Dose 100 MLS/HR; Start 04/27/18 at 14:00 Montelukast Sodium (Singulair) 10 mg HS PO ; Start 04/28/18 at 21:00 Fluticasone/ Vilanterol (Breo Ellipta 100-25 Mcg Inh) 1 inh DAILY INH ; Start 04/28/18 at 09:00 Tiotropium [place] (Spiriva) 1 inh DAILY INH ; Start 04/28/18 at 09:00 Spironolactone (Aldactone) 25 mg DAILY PO Last administered on 04/28/18at 08:27; Admin Dose 25 MG; Start 04/28/18 at 09:00 Assessment/Plan Hospital Course (Demo Recall) IMPRESSION AND Acute on chronic hypoxemic and hypercapnic respiratory failure likely secondary to combination of chronic obstructive pulmonary disease exacerbation and congestive cardiac failure. Probable underlying obesity hypoventilation s yndrome Probable obstructive sleep apnea also Recommendations 1. Diuresis. 2. Supplemental O2. Nocturnal noninvasive positive pressure ventilation 3. Bronchodilators. 4. Steroid taper. 5. Switch from Levaquin to ceftriaxone given bundle branch block and evidence of ventricular tachycardia. 6. Outpatient sleep study. 7. Outpatient nocturnal polysomnogram. Transfer to telemetry Critical care time 40 minutes MILANA CHINCHILLA MD, [facility] Apr 28, 2018 10:31
[2018-04-28] MEDS: FLUTICASONE/VILANTEROL 100-25 INH SCH (10:50)
[2018-04-28] MEDS: TIOTROPIUM 18 MCG CAPSULE INHA DEV INH SCH (10:52)
[2018-04-28] MEDS: CEFTRIAXONE 2 GM/50 ML (PMX) 50 ML IVPB SCH (14:37)
[2018-04-28] MEDS ORDERED: MAGNESIUM SULFATE 2 GM/50 ML 50 ML IVPB ONE (16:00)
--- NOTE | 2018-04-28 16:05 | CONS ---
Assessment/Plan Cardiology NYHA: III Heart Failure Type: Acute Heart Failure Type: Systolic Assessment/Plan Hospital Course (Demo Recall) Acute decompensated systolic congestive heart failure, clinically improved NSVT and VT, on beta blockade, last mg level 1.8 COPD exacerbation Respiratory failure requiring BiPAP, now on nasal cannula History of hypertension History of dyslipidemia Active tobacco use Recommendations: Continue metoprolol, joan, spironolactone Uptitrate as bp tolerates, bp is borderline so will not adjust medications at present Replace magnesium Consultation Date/Type/Reason Admit Date/Time Apr 26, 2018 at 19:40 Initial Consult Date Type of Consult Cardiology Date/Time of Note DATE: 04/28/18 TIME: 16:00 24 HR Interval Summary Free Text/Dictation Still coughing, but feeling better. Exam/Review of Systems Vital Signs Vitals Vital Signs Date Temp Pulse Resp B/P (MAP) Pulse Ox O2 O2 Flow FiO2 Time Delivery Rate 04/28/18 89 11 102/69 89 Nasal 4.0 15:00 (80) Cannula 04/28/18 98.4 12:00 04/27/18 35 13:10 Intake and Output 04/27/18 04/27/18 04/28/18 1515:00 23:00 07:00 IntakeIntake Total 270 ml 240 ml 425 ml OutputOutput Total 300 ml 360 ml 625 ml BalanceBalance -30 ml -120 ml -200 ml Exam Constitutional: alert, oriented, other (obese) Psych: nl mood/affect Head: normocephalic, atraumatic Eyes: nl conjunctiva, EOMI, nl lids, nl sclera ENMT: nl external ears & nose, nl lips & teeth Neck: supple; No jvd, No bruits Respiratory: clear to auscultation, normal air movement Cardiovascular: regular rate and rhythm, nl pulses; No murmurs/extra sounds Gastrointestinal: soft, non-tender Musculoskeletal: nl extremities to inspection Extremities: normal pulses Neurological: nl mental status, nl speech Skin: diaphoresis; No rash or lesions Labs Result Diagram: 04/28/18 0443 04/28/18442 Results 24hrs Laboratory Tests Test 04/28/18 04:43 04/28/18 07:00 04/28/18 09:25 White Blood Count 16.7 #H Red Blood Count 5.42 Hemoglobin 16.6 Hematocrit 52.8 H Mean Corpuscular Volume 97.4 Mean Corpuscular Hemoglobin 30.6 Mean Corpuscular 31.4 L Hemoglobin Concent Red Cell Distribution Width 14.0 Platelet Count 259 Mean Platelet Volume 10.8 H Immature Granulocytes % 1.800 H Neutrophils % 83.0 H Lymphocytes % 7.9 L Monocytes % 7.1 Eosinophils % 0.0 Basophils % 0.2 Nucleated Red Blood Cells % 0.1 H Immature Granulocytes # 0.300 H Neutrophils # 13.8 H Lymphocytes # 1.3 Monocytes # 1.2 H Eosinophils # 0.0 Basophils # 0.0 Nucleated Red Blood Cells # 0.0 Sodium Level 139 Potassium Level 4.8 Chloride Level 92 L Carbon Dioxide Level 37 H Anion Gap 10 Blood Urea Nitrogen 39 H Creatinine 1.18 Est Glomerular Filtrat > 60 Rate mL/min Glucose Level 134 # Calcium Level 8.9 Total Bilirubin 0.3 Direct Bilirubin 0.00 Indirect Bilirubin 0.3 Aspartate Amino 30 Transf (AST/SGOT) Alanine 36 Aminotransferase (ALT/SGPT) Alkaline Phosphatase 54 Total Protein 7.1 Albumin 3.7 Globulin 3.40 H Albumin/Globulin Ratio 1.08 Blood Gas Specimen Source Blood arterial Arterial Blood Date Drawn 04/28/2018 8:21:55 AM Arterial Blood pH 7.377 (Temp corrected) Arterial Blood pCO2 65.5 H (Temp correct) Arterial Blood pO2 62.0 L (Temp corrected) Arterial Blood HCO3 37.6 H Arterial Blood Base Excess 9.1 H Arterial Blood 90.6 L Oxygen Saturation [place] Test ACCEPTAB Arterial Blood Gas Right Radial Puncture Site Arterial 0.4 Blood Carboxyhemoglobin Arterial Blood Methemoglobin 0.2 Blood Gas A-a O2 Differential 118.7 H Oxyhemoglobin Percent 90.1 L Blood Gas Temperature 37.0 Blood Gas Modality NASAL CANNULA FiO2 36.0 Blood Gas Notified Whom M.DTayla Blood Gas Notified Time 04/28/2018 8:33:20 AM Hepatitis B Surface Antigen NEGATIVE Hepatitis C Antibody NEGATIVE Imaging Imaging Telemetry shows NSR with LBBB, short runs of VT, some SVT Medications Medications Current Medications Aspirin (Halfprin) 81 mg DAILY PO Last administered on 04/28/18at 08:27; Admin Dose 81 MG; Start 04/27/18 at 09:00 Atorvastatin Calcium (Lipitor) 20 mg DAILY@21 PO Last administered on 04/27/18at 21:37; Admin Dose 20 MG; Start 04/27/18 at 21:00 IV Flush (NS 3 ml) 3 ml PER PROTOCOL IV ; Start 04/26/18 at 20:30 Ondansetron HCl (Zofran Inj) 4 mg Q6H PRN IV NAUSEA/VOMITING; Start 04/26/18 at 20:30 Acetaminophen (Tylenol Tab) 650 mg Q6H PRN PO .PAIN 1-3 OR TEMP Last administered on 04/28/18 06:38; Admin Dose 650 MG; Start 04/26/18 at 20:30 Docusate Sodium (Colace) 100 mg Q12H PRN PO .CONSTIPATION; Start 04/26/18 at 20:30 Magnesium Hydroxide (Milk Of Mag) 30 ml DAILY PRN PO .CONSTIPATION; Start 04/26/18 at 20:30 Pantoprazole (Protonix Tab) 40 mg DAILY@06 PO Last administered on 04/28/18 05:51; Admin Dose 40 MG; Start 04/27/18 at 06:00 Heparin Sodium (Porcine) (Heparin (5000 Units/1ml)) 5,000 unit Q8 SC Last administered on 04/28/18 14:44; Admin Dose 5,000 UNIT; Start 04/26/18 at 22:00 Furosemide (Lasix) 40 mg BID DIURETICS IV Last administered on 04/28/18 05:51; Admin Dose 40 MG; Start 04/27/18 at 08:00 Methylprednisolone Sodium Succinate (Solu-Medrol) 40 mg Q12 IV Last administered on 04/28/18 08:26; Admin Dose 40 MG; Start 04/27/18 at 11:00 Albuterol/ Ipratropium (Duoneb) 3 ml Q4H RESP THERAPY HHN Last administered on 04/28/18 13:08; Admin Dose 3 ML; Start 04/27/18 at 13:00 Albuterol (Proventil 0.083% (Neb)) 1.25 mg Q2H RESP THERAPY PRN HHN SHORTNESS OF BREATH; Start 04/27/18 at 11:30 Benazepril HCl (Lotensin) 10 mg BID PO Last administered on 04/28/18 08:27; Admin Dose 10 MG; Start 04/28/18 at 09:00 Metoprolol Succinate (Toprol Xl) 25 mg BID PO Last administered on 04/28/18 08:28; Admin Dose 25 MG; Start 04/27/18 at 13:00 Ceftriaxone Sodium 50 ml @ 100 mls/hr Q24H IVPB Last administered on 04/28/18 14:37; Admin Dose 100 MLS/HR; Start 04/27/18 at 14:00 Montelukast Sodium (Singulair) 10 mg HS PO ; Start 04/28/18 at 21:00 Fluticasone/ Vilanterol (Breo Ellipta 100-25 Mcg Inh) 1 inh DAILY INH Last administered on 04/28/18 10:50; Admin Dose 1 INH; Start 04/28/18 at 09:00 Tiotropium [place] (Spiriva) 1 inh DAILY INH Last administered on 04/28/18 10:52; Admin Dose 1 INH; Start 04/28/18 at 09:00 Spironolactone (Aldactone) 25 mg DAILY PO Last administered on 04/28/18 08:27; Admin Dose 25 MG; Start 04/28/18 at 09:00 ODILON WILSON Apr 28, 2018 16:05
[2018-04-28] MEDS: ATORVASTATIN 20 MG TAB PO SCH (21:07)
[2018-04-28] MEDS: MONTELUKAST 10 MG TAB PO SCH (21:07)
[2018-04-29] VITALS (13 sets, daily range): BP systolic 117–125; BP diastolic 62–78; PULSE 82–192; RESP 18–22
[2018-04-29] MEDS: ALBUTEROL/IPRATROPIUM (NEB) 3 ML AMP HHN SCH ×6 (00:32→20:06)
[2018-04-29] MEDS: ACETAMINOPHEN 325 MG TAB PO PRN ×3 (01:24→22:16)
[2018-04-29] MEDS: PANTOPRAZOLE (EC) 40 MG TAB PO SCH (05:48)
[2018-04-29] MEDS: FUROSEMIDE 40 MG INJ IV SCH ×2 (05:49→18:06)
[2018-04-29] MEDS: HEPARIN 5,000 UNIT/1 ML VIAL SC SCH ×3 (06:02→20:45)
[2018-04-29] MEDS: BENAZEPRIL 10 MG TAB PO SCH ×2 (09:15→20:33)
[2018-04-29] MEDS: SPIRONOLACTONE 25 MG TAB PO SCH (09:15)
[2018-04-29] MEDS: MAGNESIUM OXIDE 400 MG TAB PO SCH (09:15)
[2018-04-29] MEDS: FLUTICASONE/VILANTEROL 100-25 INH SCH (09:16)
[2018-04-29] MEDS: ASPIRIN (EC) 81 MG TAB PO SCH (09:16)
[2018-04-29] MEDS: TIOTROPIUM 18 MCG CAPSULE INHA DEV INH SCH (09:16)
[2018-04-29] MEDS: METOPROLOL (XL) 25 MG TAB PO SCH (09:16)
--- NOTE | 2018-04-29 09:28 | PN ---
Date/Time of Note Date/Time of Note DATE: 04/29/18 TIME: 09:24 Assessment/Plan VTE Prophylaxis Risk score (from [facility])>0 risk: 3 SCD applied (from [facility]): No SCD contraindicated: low risk/ambulating Pharmacological prophylaxis: heparin Lines/Catheters IV Catheter Type (from [facility]): [place] Urinary Cath still in place: No Assessment/Plan Problems: (1) Acute systolic heart failure Status: Acute Comment: He still actually appears to be in heart failure and regardless he is needing oxygen. Continue with treatment. Please note he is having also some dysrhythmia despite having normal potassium and magnesium. He is on beta- blockade and cardiology is following. I have a suspicion this gentleman is going to need an qualify for an AICD device (2) Grade I diastolic dysfunction Status: Chronic Comment: Noted. (3) Nonsustained ventricular tachycardia Status: Acute Comment: As above normal potassium normal magnesium (4) COPD exacerbation Status: Acute Comment: Improving with standard therapy, he may end up needing home oxygen. In addition this I suspect he has obesity hypoventilation syndrome he is can need a nocturnal polysomnography and probably a home BiPAP (5) Hyperlipidemia Status: Chronic Comment: On standard therapy Qualifiers: Hyperlipidemia type: pure hypercholesterolemia Qualified Codes: E78.00 - Pure hypercholesterolemia, unspecified (6) Essential hypertension Status: Chronic Comment: Adequate control using afterload reduction and beta-blockade (7) Obesity (BMI 30-39.9) Status: Chronic Comment: Calorie restriction diet Result Diagram: 04/29/18 0723 04/29/18 0723 Results 24hrs Laboratory Tests Test 04/28/18 09:25 04/29/18 07:23 Hepatitis B Surface Antigen NEGATIVE Hepatitis C Antibody NEGATIVE White Blood Count 19.5 H Red Blood Count 5.73 Hemoglobin 17.4 Hematocrit 55.1 H Mean Corpuscular Volume 96.2 Mean Corpuscular Hemoglobin 30.4 Mean Corpuscular Hemoglobin Concent 31.6 L Red Cell Distribution Width 14.3 Platelet Count 297 Mean Platelet Volume 10.8 H Immature Granulocytes % 1.500 H Neutrophils % 82.3 H Lymphocytes % 7.0 L Monocytes % 9.0 Eosinophils % 0.0 Basophils % 0.2 Nucleated Red Blood Cells % 0.0 Immature Granulocytes # 0.290 H Neutrophils # 16.1 H Lymphocytes # 1.4 Monocytes # 1.8 H Eosinophils # 0.0 Basophils # 0.0 Nucleated Red Blood Cells # 0.0 Sodium Level 141 Potassium Level 4.7 Chloride Level 91 L Carbon Dioxide Level 40 H Anion Gap 10 Blood Urea Nitrogen 51 H Creatinine 1.12 Est Glomerular Filtrat Rate mL/min > 60 Glucose Level 118 Calcium Level 9.2 Magnesium Level 2.6 H Total Bilirubin 0.4 Direct Bilirubin 0.00 Indirect Bilirubin 0.4 Aspartate Amino Transf (AST/SGOT) 75 #H Alanine Aminotransferase (ALT/SGPT) 31 Alkaline Phosphatase 51 Total Protein 7.2 Albumin 3.8 Globulin 3.40 H Albumin/Globulin Ratio 1.11 Subjective 24 Hr Interval Summary Free Text/Dictation Patient states I am going home in an hour. Please note the patient is offering wishful thinking and would prefer to be able to get out of here but is not actually planning on walking out Constitutional: no complaints Respiratory: cough, shortness of breath (Wheezing is no longer present) Cardiovascular: no complaints Gastrointestinal: no complaints Genitourinary: no complaints Musculoskeletal: no complaints Exam/Review of Systems Exam Vitals Vital Signs Date Temp Pulse Resp B/P (MAP) Pulse Ox O2 O2 Flow FiO2 Time Delivery Rate 04/29/18 95 09:23 04/29/18 98.6 18 124/70 07:42 (88) 04/29/18 90 Nasal 4.0 05:00 Cannula 04/27/18 35 13:10 Intake and Output 04/28/18 04/28/18 04/29/18 1515:00 23:00 07:00 IntakeIntake Total 600 ml 680 ml 120 ml OutputOutput Total 400 ml 440 ml 225 ml BalanceBalance 200 ml 240 ml -105 ml Exam Obese gentleman sitting up eating a sandwich; please see desk monitor reports he has had 2 episodes of nonsustained V. tach 1 of 8 beats one for 12 beats Constitutional: alert, oriented Head: normocephalic, atraumatic Neck: supple, non-tender Respiratory: crackles/rales, diminished breath sounds, wheezing (Wheezing with forced expiration) Cardiovascular: regular rate and rhythm, nl pulses Gastrointestinal: soft, nl liver, spleen, non-tender Results Results 24hrs Laboratory Tests Test 04/28/18 09:25 04/29/18 07:23 Hepatitis B Surface Antigen NEGATIVE Hepatitis C Antibody NEGATIVE White Blood Count 19.5 H Red Blood Count 5.73 Hemoglobin 17.4 Hematocrit 55.1 H Mean Corpuscular Volume 96.2 Mean Corpuscular Hemoglobin 30.4 Mean Corpuscular Hemoglobin Concent 31.6 L Red Cell Distribution Width 14.3 Platelet Count 297 Mean Platelet Volume 10.8 H Immature Granulocytes % 1.500 H Neutrophils % 82.3 H Lymphocytes % 7.0 L Monocytes % 9.0 Eosinophils % 0.0 Basophils % 0.2 Nucleated Red Blood Cells % 0.0 Immature Granulocytes # 0.290 H Neutrophils # 16.1 H Lymphocytes # 1.4 Monocytes # 1.8 H Eosinophils # 0.0 Basophils # 0.0 Nucleated Red Blood Cells # 0.0 Sodium Level 141 Potassium Level 4.7 Chloride Level 91 L Carbon Dioxide Level 40 H Anion Gap 10 Blood Urea Nitrogen 51 H Creatinine 1.12 Est Glomerular Filtrat Rate mL/min > 60 Glucose Level 118 Calcium Level 9.2 Magnesium Level 2.6 H Total Bilirubin 0.4 Direct Bilirubin 0.00 Indirect Bilirubin 0.4 Aspartate Amino Transf (AST/SGOT) 75 #H Alanine Aminotransferase (ALT/SGPT) 31 Alkaline Phosphatase 51 Total Protein 7.2 Albumin 3.8 Globulin 3.40 H Albumin/Globulin Ratio 1.11 Medications Medication Current Medications Aspirin (Halfprin) 81 mg DAILY PO Last administered on 04/28/18at 08:27; Admin Dose 81 MG; Start 04/27/18 at 09:00 Atorvastatin Calcium (Lipitor) 20 mg DAILY@21 PO Last administered on 04/28/18at 21:07; Admin Dose 20 MG; Start 04/27/18 at 21:00 IV Flush (NS 3 ml) 3 ml PER PROTOCOL IV ; Start 04/26/18 at 20:30 Ondansetron HCl (Zofran Inj) 4 mg Q6H PRN IV NAUSEA/VOMITING; Start 04/26/18 at 20:30 Acetaminophen (Tylenol Tab) 650 mg Q6H PRN PO .PAIN 1-3 OR TEMP Last administe red on 04/29/18at 01:24; Admin Dose 650 MG; Start 04/26/18 at 20:30 Docusate Sodium (Colace) 100 mg Q12H PRN PO .CONSTIPATION; Start 04/26/18 at 20:30 Magnesium Hydroxide (Milk Of Mag) 30 ml DAILY PRN PO .CONSTIPATION; Start 04/26/18 at 20:30 Pantoprazole (Protonix Tab) 40 mg DAILY@06 PO Last administered on 04/29/18 05:48; Admin Dose 40 MG; Start 04/27/18 at 06:00 Heparin Sodium (Porcine) (Heparin (5000 Units/1ml)) 5,000 unit Q8 SC Last administered on 04/29/18 06:02; Admin Dose 5,000 UNIT; Start 04/26/18 at 22:00 Furosemide (Lasix) 40 mg BID DIURETICS IV Last administered on 04/29/18 05: 49; Admin Dose 40 MG; Start 04/27/18 at 08:00 Albuterol/ Ipratropium (Duoneb) 3 ml Q4H RESP THERAPY HHN Last administered on 04/29/18 08:41; Admin Dose 3 ML; Start 04/27/18 at 13:00 Albuterol (Proventil 0.083% (Neb)) 1.25 mg Q2H RESP THERAPY PRN HHN SHORTNESS OF BREATH; Start 04/27/18 at 11:30 Benazepril HCl (Lotensin) 10 mg BID PO Last administered on 04/28/18 21:08; Admin Dose 10 MG; Start 04/28/18 at 09:00 Metoprolol Succinate (Toprol Xl) 25 mg BID PO Last administered on 04/28/18 21:08; Admin Dose 25 MG; Start 04/27/18 at 13:00 Ceftriaxone Sodium 50 ml @ 100 mls/hr Q24H IVPB Last administered on 04/28/18 14:37; Admin Dose 100 MLS/HR; Start 04/27/18 at 14:00 Montelukast Sodium (Singulair) 10 mg HS PO Last administered on 04/28/18 21:07; Admin Dose 10 MG; Start 04/28/18 at 21:00 Fluticasone/ Vilanterol (Breo Ellipta 100-25 Mcg Inh) 1 inh DAILY INH Last administered on 04/28/18 10:50; Admin Dose 1 INH; Start 04/28/18 at 09:00 Tiotropium [place] (Spiriva) 1 inh DAILY INH Last administered on 04/28/18 10:52; Admin Dose 1 INH; Start 04/28/18 at 09:00 Spironolactone (Aldactone) 25 mg DAILY PO Last administered on 04/28/18at 08:27; Admin Dose 25 MG; Start 04/28/18 at 09:00 Magnesium Oxide (Mag-Ox 400) 400 mg DAILY PO ; Start 04/29/18 at 09:00 Methylprednisolone Sodium Succinate (Solu-Medrol) 20 mg Q12 IV ; Start 04/29/18 at 21:00; Status UNEZRA DIAZ MD Apr 29, 2018 09:28
[2018-04-29] MEDS ORDERED: METOPROLOL (XL) 25 MG TAB PO ONE (10:30)
--- NOTE | 2018-04-29 10:59 | CONS ---
Consult Date/Type/Reason Admit Date/Time Apr 26, 2018 at 19:40 Initial Consult Date Type of Consult Pulmonary Date/Time of Note DATE: 04/29/18 TIME: 10:58 Subjective Continues on oxygen. No respiratory distress at present Declined bilevel ventilation overnight. Objective Vital Signs Date Temp Pulse Resp B/P (MAP) Pulse Ox O2 O2 Flow FiO2 Time Delivery Rate 04/29/18 160 10:08 04/29/18 18 87 Nasal 4.0 08:41 Cannula 04/29/18 98.6 124/70 07:42 (88) 04/27/18 35 13:10 Intake and Output 04/28/18 04/28/18 04/29/18 1414:59 22:59 06:59 IntakeIntake Total 600 ml 680 ml 120 ml OutputOutput Total 400 ml 420 ml 345 ml BalanceBalance 200 ml 260 ml -225 ml Exam GENERAL: Well-nourished well-developed gentleman comfortable at rest no acute distress VITAL SIGNS: per chart NECK: Supple. No JVD or lymphadenopathy. CARDIAC EXAM: S1, S2. No added sounds or murmurs. CHEST: Edema +1 diminished air entry bilaterally with rales and wheezes ABDOMEN: Soft, nontender. No guarding or rebound. EXTREMITIES: No cyanosis, clubbing edema +1 NEUROLOGIC: Generalized weakness. No focal deficits. Results/Medications Result Diagram: 04/29/1872204/29/18 0723 Results 24 hrs Laboratory Tests Test 04/29/18 07:23 White Blood Count 19.5 H Red Blood Count 5.73 Hemoglobin 17.4 Hematocrit 55.1 H Mean Corpuscular Volume 96.2 Mean Corpuscular Hemoglobin 30.4 Mean Corpuscular Hemoglobin Concent 31.6 L Red Cell Distribution Width 14.3 Platelet Count 297 Mean Platelet Volume 10.8 H Immature Granulocytes % 1.500 H Neutrophils % 82.3 H Lymphocytes % 7.0 L Monocytes % 9.0 Eosinophils % 0.0 Basophils % 0.2 Nucleated Red Blood Cells % 0.0 Immature Granulocytes # 0.290 H Neutrophils # 16.1 H Lymphocytes # 1.4 Monocytes # 1.8 H Eosinophils # 0.0 Basophils # 0.0 Nucleated Red Blood Cells # 0.0 Sodium Level 141 Potassium Level 4.7 Chloride Level 91 L Carbon Dioxide Level 40 H Anion Gap 10 Blood Urea Nitrogen 51 H Creatinine 1.12 Est Glomerular Filtrat Rate mL/min > 60 Glucose Level 118 Calcium Level 9.2 Magnesium Level 2.6 H Total Bilirubin 0.4 Direct Bilirubin 0.00 Indirect Bilirubin 0.4 Aspartate Amino Transf (AST/SGOT) 75 #H Alanine Aminotransferase (ALT/SGPT) 31 Alkaline Phosphatase 51 Total Protein 7.2 Albumin 3.8 Globulin 3.40 H Albumin/Globulin Ratio 1.11 Medications Current Medications Aspirin (Halfprin) 81 mg DAILY PO Last administered on 04/29/18 09:16; Admin Dose 81 MG; Start 04/27/18 at 09:00 Atorvastatin Calcium (Lipitor) 20 mg DAILY@21 PO Last administered on 04/28/18 21:07; Admin Dose 20 MG; Start 04/27/18 at 21:00 IV Flush (NS 3 ml) 3 ml PER PROTOCOL IV ; Start 04/26/18 at 20:30 Ondansetron HCl (Zofran Inj) 4 mg Q6H PRN IV NAUSEA/VOMITING; Start 04/26/18 at 20:30 Acetaminophen (Tylenol Tab) 650 mg Q6H PRN PO .PAIN 1-3 OR TEMP Last administered on 04/29/18 09:32; Admin Dose 650 MG; Start 04/26/18 at 20:30 Docusate Sodium (Colace) 100 mg Q12H PRN PO .CONSTIPATION; Start 04/26/18 at 20:30 Magnesium Hydroxide (Milk Of Mag) 30 ml DAILY PRN PO .CONSTIPATION; Start 04/26/18 at 20:30 Pantoprazole (Protonix Tab) 40 mg DAILY@06 PO Last administered on 04/29/18 05:48; Admin Dose 40 MG; Start 04/27/18 at 06:00 Heparin Sodium (Porcine) (Heparin (5000 Units/1ml)) 5,000 unit Q8 SC Last administered on 04/29/18 06:02; Admin Dose 5,000 UNIT; Start 04/26/18 at 22:00 Furosemide (Lasix) 40 mg BID DIURETICS IV Last administered on 04/29/18 05:49; Admin Dose 40 MG; Start 04/27/18 at 08:00 Albuterol/ Ipratropium (Duoneb) 3 ml Q4H RESP THERAPY HHN Last administered on 04/29/18 08:41; Admin Dose 3 ML; Start 04/27/18 at 13:00 Albuterol (Proventil 0.083% (Neb)) 1.25 mg Q2H RESP THERAPY PRN HHN SHORTNESS OF BREATH; Start 04/27/18 at 11:30 Benazepril HCl (Lotensin) 10 mg BID PO Last administered on 04/29/18 09:15; Admin Dose 10 MG; Start 04/28/18 at 09:00 Ceftriaxone Sodium 50 ml @ 100 mls/hr Q24H IVPB Last administered on 04/28/18at 14:37; Admin Dose 100 MLS/HR; Start 04/27/18 at 14:00 Montelukast Sodium (Singulair) 10 mg HS PO Last administered on 04/28/18 21:07; Admin Dose 10 MG; Start 04/28/18 at 21:00 Fluticasone/ Vilanterol (Breo Ellipta 100-25 Mcg Inh) 1 inh DAILY INH Last administered on 04/29/18 09:16; Admin Dose 1 INH; Start 04/28/18 at 09:00 Tiotropium [place] (Spiriva) 1 inh DAILY INH Last administered on 04/29/18 09:16; Admin Dose 1 INH; Start 04/28/18 at 09:00 Spironolactone (Aldactone) 25 mg DAILY PO Last administered on 04/29/18 09:15; Admin Dose 25 MG; Start 04/28/18 at 09:00 Magnesium Oxide (Mag-Ox 400) 400 mg DAILY PO Last administered on 04/29/18 09:15; Admin Dose 400 MG; Start 04/29/18 at 09:00 Methylprednisolone Sodium Succinate (Solu-Medrol) 20 mg Q12 IV ; Start 04/29/18 at 21:00 Metoprolol Succinate (Toprol Xl) 50 mg BID PO ; Start 04/29/18 at 21:00 Assessment/Plan Hospital Course (Demo Recall) IMPRESSION AND Acute on chronic hypoxemic and hypercapnic respiratory failure likely secondary to combination of chronic obstructive pulmonary disease exacerbation and congestive cardiac failure. Probable underlying obesity hypoventilation syndrome Probable obstructive sleep apnea also Recommendations 1. Diuresis. 2. Supplemental O2. Nocturnal noninvasive positive pressure ventilation 3. Bronchodilators. 4. Steroid taper. 5. Switch from Levaquin to ceftriaxone given bundle branch block and evidence of ventricular tachycardia. 6. Outpatient sleep study. 7. Outpatient nocturnal polysomnogram. MILANA CHINCHILLA MD, [facility] Apr 29, 2018 10:59
[2018-04-29] MEDS: CEFTRIAXONE 2 GM/50 ML (PMX) 50 ML IVPB SCH (14:42)
--- NOTE | 2018-04-29 17:46 | CONS ---
Assessment/Plan Cardiology NYHA: III Heart Failure Type: Acute Heart Failure Type: Systolic Assessment/Plan Hospital Course (Demo Recall) Acute decompensated systolic congestive heart failure, clinically improved NSVT and VT, on beta blockade, last mg level 2.6 COPD exacerbation Respiratory failure requiring BiPAP, now on nasal cannula History of hypertension History of dyslipidemia Active tobacco use Recommendations: Metoprolol increased, continue timothy, spironolactone If NSVT runs persist in spite of uptitration of metoprolol, consider AICD prior to discharge Uptitrate TIMOTHY and metoprolol as bp tolerates Consultation Date/Type/Reason Admit Date/Time Apr 26, 2018 at 19:40 Initial Consult Date Type of Consult Cardiology Date/Time of Note DATE: 04/29/18 TIME: 17:44 24 HR Interval Summary Free Text/Dictation Feeling better, ambulating in room, no pain, wants to go home. Of note several runs of NSVT noted on monitor Exam/Review of Systems Vital Signs Vitals Vital Signs Date Temp Pulse Resp B/P (MAP) Pulse Ox O2 O2 Flow FiO2 Time Delivery Rate 04/29/18 84 18 91 Nasal 4.0 16:43 Cannula 04/29/18 98.0 117/62 15:53 (80) 04/27/18 35 13:10 Intake and Output 04/28/18 04/28/18 04/29/18 1515:00 23:00 07:00 IntakeIntake Total 600 ml 680 ml 120 ml OutputOutput Total 400 ml 440 ml 225 ml BalanceBalance 200 ml 240 ml -105 ml Exam Constitutional: alert, oriented, well developed Psych: no complaints, nl mood/affect Head: normocephalic, atraumatic Eyes: nl lids, nl sclera ENMT: nl external ears & nose Neck: supple; No bruits Respiratory: clear to auscultation, normal air movement Cardiovascular: regular rate and rhythm; No murmurs/extra sounds Gastrointestinal: soft, non-tender Musculoskeletal: nl extremities to inspection Extremities: No edema Neurological: nl mental status, nl speech Skin: nl turgor Labs Result Diagram: 04/29/1872204/29/18722 Results 24hrs Laboratory Tests Test 04/29/18 07:23 White Blood Count 19.5 H Red Blood Count 5.73 Hemoglobin 17.4 Hematocrit 55.1 H Mean Corpuscular Volume 96.2 Mean Corpuscular Hemoglobin 30.4 Mean Corpuscular Hemoglobin Concent 31.6 L Red Cell Distribution Width 14.3 Platelet Count 297 Mean Platelet Volume 10.8 H Immature Granulocytes % 1.500 H Neutrophils % 82.3 H Lymphocytes % 7.0 L Monocytes % 9.0 Eosinophils % 0.0 Basophils % 0.2 Nucleated Red Blood Cells % 0.0 Immature Granulocytes # 0.290 H Neutrophils # 16.1 H Lymphocytes # 1.4 Monocytes # 1.8 H Eosinophils # 0.0 Basophils # 0.0 Nucleated Red Blood Cells # 0.0 Sodium Level 141 Potassium Level 4.7 Chloride Level 91 L Carbon Dioxide Level 40 H Anion Gap 10 Blood Urea Nitrogen 51 H Creatinine 1.12 Est Glomerular Filtrat Rate mL/min > 60 Glucose Level 118 Calcium Level 9.2 Magnesium Level 2.6 H Total Bilirubin 0.4 Direct Bilirubin 0.00 Indirect Bilirubin 0.4 Aspartate Amino Transf (AST/SGOT) 75 #H Alanine Aminotransferase (ALT/SGPT) 31 Alkaline Phosphatase 51 Total Protein 7.2 Albumin 3.8 Globulin 3.40 H Albumin/Globulin Ratio 1.11 Medications Medications Current Medications Aspirin (Halfprin) 81 mg DAILY PO Last administered on 04/29/18 09:16; Admin Dose 81 MG; Start 04/27/18 at 09:00 Atorvastatin Calcium (Lipitor) 20 mg DAILY@21 PO Last administered on 04/28/18at 21:07; Admin Dose 20 MG; Start 04/27/18 at 21:00 IV Flush (NS 3 ml) 3 ml PER PROTOCOL IV ; Start 04/26/18 at 20:30 Ondansetron HCl (Zofran Inj) 4 mg Q6H PRN IV NAUSEA/VOMITING; Start 04/26/18 at 20:30 Acetaminophen (Tylenol Tab) 650 mg Q6H PRN PO .PAIN 1-3 OR TEMP Last administered on 04/29/18 09:32; Admin Dose 650 MG; Start 04/26/18 at 20:30 Docusate Sodium (Colace) 100 mg Q12H PRN PO .CONSTIPATION; Start 04/26/18 at 20:30 Magnesium Hydroxide (Milk Of Mag) 30 ml DAILY PRN PO .CONSTIPATION; Start 04/26/18 at 20:30 Pantoprazole (Protonix Tab) 40 mg DAILY@06 PO Last administered on 04/29/18 05:48; Admin Dose 40 MG; Start 04/27/18 at 06:00 Heparin Sodium (Porcine) (Heparin (5000 Units/1ml)) 5,000 unit Q8 SC Last administered on 04/29/18 14:17; Admin Dose 5,000 UNIT; Start 04/26/18 at 22:00 Furosemide (Lasix) 40 mg BID DIURETICS IV Last administered on 04/29/18 05:49; Admin Dose 40 MG; Start 04/27/18 at 08:00 Albuterol/ Ipratropium (Duoneb) 3 ml Q4H RESP THERAPY HHN Last administered on 04/29/18 16:42; Admin Dose 3 ML; Start 04/27/18 at 13:00 Albuterol (Proventil 0.083% (Neb)) 1.25 mg Q2H RESP THERAPY PRN HHN SHORTNESS OF BREATH; Start 04/27/18 at 11:30 Benazepril HCl (Lotensin) 10 mg BID PO Last administered on 04/29/18 09:15; Admin Dose 10 MG; Start 04/28/18 at 09:00 Ceftriaxone Sodium 50 ml @ 100 mls/hr Q24H IVPB Last administered on 04/29/18 14:42; Admin Dose 100 MLS/HR; Start 04/27/18 at 14:00 Montelukast Sodium (Singulair) 10 mg HS PO Last administered on 04/28/18 21:07; Admin Dose 10 MG; Start 04/28/18 at 21:00 Fluticasone/ Vilanterol (Breo Ellipta 100-25 Mcg Inh) 1 inh DAILY INH Last administered on 04/29/18 09:16; Admin Dose 1 INH; Start 04/28/18 at 09:00 Tiotropium [place] (Spiriva) 1 inh DAILY INH Last administered on 04/29/18 09:16; Admin Dose 1 INH; Start 04/28/18 at 09:00 Spironolactone (Aldactone) 25 mg DAILY PO Last administered on 04/29/18 09:15; Admin Dose 25 MG; Start 04/28/18 at 09:00 Magnesium Oxide (Mag-Ox 400) 400 mg DAILY PO Last administered on 04/29/18 09:15; Admin Dose 400 MG; Start 04/29/18 at 09:00 Methylprednisolone Sodium Succinate (Solu-Medrol) 20 mg Q12 IV ; Start 04/29/18 at 21:00 Metoprolol Succinate (Toprol Xl) 50 mg BID PO ; Start 04/29/18 at 21:00 ODILON WILSON Apr 29, 2018 17:46
[2018-04-29] MEDS: MONTELUKAST 10 MG TAB PO SCH (20:32)
[2018-04-29] MEDS: ATORVASTATIN 20 MG TAB PO SCH (20:32)
[2018-04-29] MEDS: METOPROLOL (XL) 50 MG TAB PO SCH (20:33)
[2018-04-29] MEDS: METHYLPREDNISOLONE 40 MG INJ IV SCH (20:34)
[2018-04-30] VITALS (11 sets, daily range): BP systolic 109–132; BP diastolic 64–81; PULSE 65–97; RESP 18–22
[2018-04-30] MEDS: ALBUTEROL/IPRATROPIUM (NEB) 3 ML AMP HHN SCH ×6 (01:17→20:20)
[2018-04-30] MEDS: FUROSEMIDE 40 MG INJ IV SCH (06:23)
[2018-04-30] MEDS: PANTOPRAZOLE (EC) 40 MG TAB PO SCH (06:24)
[2018-04-30] MEDS: HEPARIN 5,000 UNIT/1 ML VIAL SC SCH ×3 (06:52→20:48)
[2018-04-30] MEDS: SPIRONOLACTONE 25 MG TAB PO SCH (08:55)
[2018-04-30] MEDS: METOPROLOL (XL) 50 MG TAB PO SCH ×2 (08:55→20:39)
[2018-04-30] MEDS: BENAZEPRIL 10 MG TAB PO SCH ×2 (08:56→20:39)
[2018-04-30] MEDS: MAGNESIUM OXIDE 400 MG TAB PO SCH (08:56)
[2018-04-30] MEDS: ASPIRIN (EC) 81 MG TAB PO SCH (08:56)
[2018-04-30] MEDS: METHYLPREDNISOLONE 40 MG INJ IV SCH ×2 (08:57→20:40)
[2018-04-30] MEDS ORDERED: METOPROLOL 100 MG TAB PO ONE (09:00)
[2018-04-30] MEDS: ACETAMINOPHEN 325 MG TAB PO PRN (09:05)
--- NOTE | 2018-04-30 09:53 | PN ---
Date/Time of Note Date/Time of Note DATE: 04/30/18 TIME: 09:38 Assessment/Plan VTE Prophylaxis Risk score (from Ns)>0 risk: 9 SCD applied (from Ns): Yes Pharmacological prophylaxis: heparin Lines/Catheters IV Catheter Type (from [facility] Saline Lock Urinary Cath still in place: No Assessment/Plan Hospital Course SUBJECTIVE: lying in bed, having nonproductive cough.. On supplemental oxygen via nasal cannula. OBJECTIVE: Vital signs-see below PHYSICAL EXAM: Constitutional: Well-developed, adequately built, male, in respiratory distress, on BiPAP psych: nl mood/affect, no complaints Head: atraumatic, normocephalic Eyes: nl conjunctiva, nl sclera ENMT: mucosa pink and moist, nl external ears & nose Neck: non-tender, supple Respiratory: Diminished bibasilar..clear to auscultation, normal air movement Cardiovascular: nl pulses, regular rate and rhythm Gastrointestinal: non-tender, soft, bowel sounds active in all 4 quadrants. Musculoskeletal/extremities:+Pitting edema bilaeral LEs. nl extremities to inspection, motor strength equal bilaterally, no focal deficit. Normal pulses,no cyanosis. Neurological: Alert oriented 3,nl speech, nl strength Skin: nl turgor ASSESSMENT/PLAN: 62-year-old male w/htn, hyperlipidemia, who has no pcp checks 2/2 insurance issues, has been having progressive SOB,jessica.LE edma for months for which no workup has been done, here with worsening shortness of breath to a point that he experiences breathing difficulties/cough/wheezing/worsening jessica le edema even during small distance walking 5 days..... 1. Acute hypoxemic/hypercapnic respiratory failure, multifactorial with CHF exacerbation/COPD exacerbation/possible TAMANNA component. -Gradually improving.. -cont. titrate o2 down to keep spo2>92 -assess need for home o2 eval -pulmonary f/u, sleep study (outpt) 2. Acute decompensated systolic congestive heart failure -improving gradually.. -Cont. diuretic/AEi/Aldactone/BB -May be a candidate for AICD prior to discharge per cards. -As per cardiology note, the plan is likely CT coronary angiography. -f/u cards recs.. 3.COPD -now Stable. -Start COPD maintenance management including addition of LABA. -cont. PRN BEL -Smoking cessation advised. 4. Hypertension -Stable. Continue antihypertensives 5. Dyslipidemia -On statin 6.Obesity with a BMI 38.3. -A1c/lipid panel within acceptable range. Weight reduction advised. 7. Tobacco use -Cessation advised DVT prophylaxis: Heparin PUD prophylaxis: Protonix CODE STATUS: Full code Diet: 2 g sodium/cardiac diet. Disposition: Continue titrating oxygen. PT evaluation. Suspicion for need for home oxygen if indicated. Follow-up pulmonary and cardiology recommendations. Patient was seen in collaboration w/ Result Diagram: 04/30/1824 04/30/18 0624 Results 24hrs Laboratory Tests Test 04/30/18 06:24 White Blood Count 15.2 #H Red Blood Count 5.82 Hemoglobin 17.7 Hematocrit 56.4 H Mean Corpuscular Volume 96.9 Mean Corpuscular Hemoglobin 30.4 Mean Corpuscular Hemoglobin Concent 31.4 L Red Cell Distribution Width 14.2 Platelet Count 289 Mean Platelet Volume 10.8 H Immature Granulocytes % 2.200 H Neutrophils % 84.9 H Lymphocytes % 7.0 L Monocytes % 5.4 Eosinophils % 0.1 Basophils % 0.4 Nucleated Red Blood Cells % 0.0 Immature Granulocytes # 0.330 H Neutrophils # 12.9 H Lymphocytes # 1.1 Monocytes # 0.8 Eosinophils # 0.0 Basophils # 0.1 Nucleated Red Blood Cells # 0.0 Sodium Level 139 Potassium Level 5.0 Chloride Level 89 L Carbon Dioxide Level 39 H Anion Gap 11 Blood Urea Nitrogen 46 H Creatinine 0.98 Est Glomerular Filtrat Rate mL/min > 60 Glucose Level 150 Calcium Level 9.1 Total Bilirubin 0.5 Direct Bilirubin 0.00 Indirect Bilirubin 0.5 Aspartate Amino Transf (AST/SGOT) 48 H Alanine Aminotransferase (ALT/SGPT) 33 Alkaline Phosphatase 49 Total Protein 6.9 Albumin 3.7 Globulin 3.20 Albumin/Globulin Ratio 1.15 Exam/Review of Systems Exam Vitals Vital Signs Date Temp Pulse Resp B/P (MAP) Pulse Ox O2 O2 Flow FiO2 Time Delivery Rate 04/30/18 4.0 09:08 04/30/18 98 22 93 Nasal 09:07 Cannula 04/30/18 98.4 132/81 07:22 (98) 04/27/18 35 13:10 Intake and Output 04/29/18 04/29/18 04/30/18 1515:00 23:00 07:00 IntakeIntake Total 940 ml OutputOutput Total 1200 ml BalanceBalance -260 ml Results Results 24hrs Laboratory Tests Test 04/30/18 06:24 White Blood Count 15.2 #H Red Blood Count 5.82 Hemoglobin 17.7 Hematocrit 56.4 H Mean Corpuscular Volume 96.9 Mean Corpuscular Hemoglobin 30.4 Mean Corpuscular Hemoglobin Concent 31.4 L Red Cell Distribution Width 14.2 Platelet Count 289 Mean Platelet Volume 10.8 H Immature Granulocytes % 2.200 H Neutrophils % 84.9 H Lymphocytes % 7.0 L Monocytes % 5.4 Eosinophils % 0.1 Basophils % 0.4 Nucleated Red Blood Cells % 0.0 Immature Granulocytes # 0.330 H Neutrophils # 12.9 H Lymphocytes # 1.1 Monocytes # 0.8 Eosinophils # 0.0 Basophils # 0.1 Nucleated Red Blood Cells # 0.0 Sodium Level 139 Potassium Level 5.0 Chloride Level 89 L Carbon Dioxide Level 39 H Anion Gap 11 Blood Urea Nitrogen 46 H Creatinine 0.98 Est Glomerular Filtrat Rate mL/min > 60 Glucose Level 150 Calcium Level 9.1 Total Bilirubin 0.5 Direct Bilirubin 0.00 Indirect Bilirubin 0.5 Aspartate Amino Transf (AST/SGOT) 48 H Alanine Aminotransferase (ALT/SGPT) 33 Alkaline Phosphatase 49 Total Protein 6.9 Albumin 3.7 Globulin 3.20 Albumin/Globulin Ratio 1.15 Medications Medication Current Medications Aspirin (Halfprin) 81 mg DAILY PO Last administered on 04/30/18at 08:56; Admin Dose 81 MG; Start 04/27/18 at 09:00 Atorvastatin Calcium (Lipitor) 20 mg DAILY@21 PO Last administered on 04/29/18at 20:32; Admin Dose 20 MG; Start 04/27/18 at 21:00 IV Flush (NS 3 ml) 3 ml PER PROTOCOL IV ; Start 04/26/18 at 20:30 Ondansetron HCl (Zofran Inj) 4 mg Q6H PRN IV NAUSEA/VOMITING; Start 04/26/18 at 20:30 Acetaminophen (Tylenol Tab) 650 mg Q6H PRN PO .PAIN 1-3 OR TEMP Last administered on 04/30/18at 09:05; Admin Dose 650 MG; Start 04/26/18 at 20:30 Docusate Sodium (Colace) 100 mg Q12H PRN PO .CONSTIPATION; Start 04/26/18 at 20:30 Magnesium Hydroxide (Milk Of Mag) 30 ml DAILY PRN PO .CONSTIPATION; Start 04/26/18 at 20:30 Pantoprazole (Protonix Tab) 40 mg DAILY@06 PO Last administered on 04/30/18 06:24; Admin Dose 40 MG; Start 04/27/18 at 06:00 Heparin Sodium (Porcine) (Heparin (5000 Units/1ml)) 5,000 unit Q8 SC Last administered on 04/30/18 06:52; Admin Dose 5,000 UNIT; Start 04/26/18 at 22:00 Furosemide (Lasix) 40 mg BID DIURETICS IV Last administered on 04/30/18 06:23; Admin Dose 40 MG; Start 04/27/18 at 08:00 Albuterol/ Ipratropium (Duoneb) 3 ml Q4H RESP THERAPY HHN Last administered on 04/30/18 09:02; Admin Dose 3 ML; Start 04/27/18 at 13:00 Albuterol (Proventil 0.083% (Neb)) 1.25 mg Q2H RESP THERAPY PRN HHN SHORTNESS OF BREATH; Start 04/27/18 at 11:30 Benazepril HCl (Lotensin) 10 mg BID PO Last administered on 04/30/18 08:56; Admin Dose 10 MG; Start 04/28/18 at 09:00 Ceftriaxone Sodium 50 ml @ 100 mls/hr Q24H IVPB Last administered on 04/29/18 14:42; Admin Dose 100 MLS/HR; Start 04/27/18 at 14:00 Montelukast Sodium (Singulair) 10 mg HS PO Last administered on 04/29/18 20:32; Admin Dose 10 MG; Start 04/28/18 at 21:00 Fluticasone/ Vilanterol (Breo Ellipta 100-25 Mcg Inh) 1 inh DAILY INH Last administered on 04/29/18 09:16; Admin Dose 1 INH; Start 04/28/18 at 09:00 Tiotropium [place] (Spiriva) 1 inh DAILY INH Last administered on 04/29/18 09:16; Admin Dose 1 INH; Start 04/28/18 at 09:00 Spironolactone (Aldactone) 25 mg DAILY PO Last administered on 04/30/18 08:55; Admin Dose 25 MG; Start 04/28/18 at 09:00 Magnesium Oxide (Mag-Ox 400) 400 mg DAILY PO Last administered on 04/30/18 08:56; Admin Dose 400 MG; Start 04/29/18 at 09:00 Methylprednisolone Sodium Succinate (Solu-Medrol) 20 mg Q12 IV Last administered on 04/30/18 08:57; Admin Dose 20 MG; Start 04/29/18 at 21:00 Metoprolol Succinate (Toprol Xl) 50 mg BID PO Last administered on 04/30/18 08:55; Admin Dose 50 MG; Start 04/29/18 at 21:00 CRISPIN STONE NP Apr 30, 2018 09:48
[2018-04-30] MEDS: TIOTROPIUM 18 MCG CAPSULE INHA DEV INH SCH (10:51)
[2018-04-30] MEDS: FLUTICASONE/VILANTEROL 100-25 INH SCH (11:25)
--- NOTE | 2018-04-30 11:32 | CONS ---
Consult Date/Type/Reason Admit Date/Time Apr 26, 2018 at 19:40 Initial Consult Date Type of Consult Pulmonary Date/Time of Note DATE: 04/30/18 TIME: 11:31 Subjective Comfortable sitting up in bed no new events. Objective Vital Signs Date Temp Pulse Resp B/P (MAP) Pulse Ox O2 O2 Flow FiO2 Time Delivery Rate 04/30/18 98.0 69 22 109/64 90 Nasal 11:19 (79) Cannula 04/30/18 4.0 09:08 04/27/18 35 13:10 Intake and Output 04/29/18 04/29/18 04/30/18 1414:59 22:59 06:59 IntakeIntake Total 940 ml OutputOutput Total 1200 ml BalanceBalance -260 ml Exam GENERAL: Well-nourished well-developed gentleman comfortable at rest no acute distress VITAL SIGNS: per chart NECK: Supple. No JVD or lymphadenopathy. CARDIAC EXAM: S1, S2. No added sounds or murmurs. CHEST: Edema +1 diminished air entry bilaterally with rales and wheezes ABDOMEN: Soft, nontender. No guarding or rebound. EXTREMITIES: No cyanosis, clubbing edema +1 NEUROLOGIC: Generalized weakness. No focal deficits. Results/Medications Result Diagram: 04/30/18 0624 04/30/18 0624 Results 24 hrs Laboratory Tests Test 04/30/18 06:24 White Blood Count 15.2 #H Red Blood Count 5.82 Hemoglobin 17.7 Hematocrit 56.4 H Mean Corpuscular Volume 96.9 Mean Corpuscular Hemoglobin 30.4 Mean Corpuscular Hemoglobin Concent 31.4 L Red Cell Distribution Width 14.2 Platelet Count 289 Mean Platelet Volume 10.8 H Immature Granulocytes % 2.200 H Neutrophils % 84.9 H Lymphocytes % 7.0 L Monocytes % 5.4 Eosinophils % 0.1 Basophils % 0.4 Nucleated Red Blood Cells % 0.0 Immature Granulocytes # 0.330 H Neutrophils # 12.9 H Lymphocytes # 1.1 Monocytes # 0.8 Eosinophils # 0.0 Basophils # 0.1 Nucleated Red Blood Cells # 0.0 Sodium Level 139 Potassium Level 5.0 Chloride Level 89 L Carbon Dioxide Level 39 H Anion Gap 11 Blood Urea Nitrogen 46 H Creatinine 0.98 Est Glomerular Filtrat Rate mL/min > 60 Glucose Level 150 Calcium Level 9.1 Total Bilirubin 0.5 Direct Bilirubin 0.00 Indirect Bilirubin 0.5 Aspartate Amino Transf (AST/SGOT) 48 H Alanine Aminotransferase (ALT/SGPT) 33 Alkaline Phosphatase 49 Total Protein 6.9 Albumin 3.7 Globulin 3.20 Albumin/Globulin Ratio 1.15 Medications Current Medications Aspirin (Halfprin) 81 mg DAILY PO Last administered on 04/30/18 08:56; Admin Dose 81 MG; Start 04/27/18 at 09:00 Atorvastatin Calcium (Lipitor) 20 mg DAILY@21 PO Last administered on 04/29/18 20:32; Admin Dose 20 MG; Start 04/27/18 at 21:00 IV Flush (NS 3 ml) 3 ml PER PROTOCOL IV ; Start 04/26/18 at 20:30 Ondansetron HCl (Zofran Inj) 4 mg Q6H PRN IV NAUSEA/VOMITING; Start 04/26/18 at 20:30 Acetaminophen (Tylenol Tab) 650 mg Q6H PRN PO .PAIN 1-3 OR TEMP Last administered on 04/30/18 09:05; Admin Dose 650 MG; Start 04/26/18 at 20:30 Docusate Sodium (Colace) 100 mg Q12H PRN PO .CONSTIPATION; Start 04/26/18 at 20:30 Magnesium Hydroxide (Milk Of Mag) 30 ml DAILY PRN PO .CONSTIPATION; Start 04/26/18 at 20:30 Pantoprazole (Protonix Tab) 40 mg DAILY@06 PO Last administered on 04/30/18 06:24; Admin Dose 40 MG; Start 04/27/18 at 06:00 Heparin Sodium (Porcine) (Heparin (5000 Units/1ml)) 5,000 unit Q8 SC Last administered on 04/30/18 06:52; Admin Dose 5,000 UNIT; Start 04/26/18 at 22:00 Furosemide (Lasix) 40 mg BID DIURETICS IV Last administered on 04/30/18 06:23; Admin Dose 40 MG; Start 04/27/18 at 08:00 Albuterol/ Ipratropium (Duoneb) 3 ml Q4H RESP THERAPY HHN Last administered on 04/30/18 09:02; Admin Dose 3 ML; Start 04/27/18 at 13:00 Albuterol (Proventil 0.083% (Neb)) 1.25 mg Q2H RESP THERAPY PRN HHN SHORTNESS OF BREATH; Start 04/27/18 at 11:30 Benazepril HCl (Lotensin) 10 mg BID PO Last administered on 04/30/18 08:56; Admin Dose 10 MG; Start 04/28/18 at 09:00 Ceftriaxone Sodium 50 ml @ 100 mls/hr Q24H IVPB Last administered on 04/29/18 14:42; Admin Dose 100 MLS/HR; Start 04/27/18 at 14:00 Montelukast Sodium (Singulair) 10 mg HS PO Last administered on 04/29/18 20:32; Admin Dose 10 MG; Start 04/28/18 at 21:00 Fluticasone/ Vilanterol (Breo Ellipta 100-25 Mcg Inh) 1 inh DAILY INH Last administered on 04/30/18 11:25; Admin Dose 1 INH; Start 04/28/18 at 09:00 Tiotropium [place] (Spiriva) 1 inh DAILY INH Last administered on 04/30/18 10:51; Admin Dose 1 INH; Start 04/28/18 at 09:00 Spironolactone (Aldactone) 25 mg DAILY PO Last administered on 04/30/18 08:55; Admin Dose 25 MG; Start 04/28/18 at 09:00 Magnesium Oxide (Mag-Ox 400) 400 mg DAILY PO Last administered on 04/30/18 08:56; Admin Dose 400 MG; Start 04/29/18 at 09:00 Methylprednisolone Sodium Succinate (Solu-Medrol) 20 mg Q12 IV Last admin istered on 04/30/18 08:57; Admin Dose 20 MG; Start 04/29/18 at 21:00; Stop 04/30/18 at 22:00 Metoprolol Succinate (Toprol Xl) 50 mg BID PO Last administered on 04/30/18 08:55; Admin Dose 50 MG; Start 04/29/18 at 21:00 Prednisone (Prednisone) 40 mg DAILY PO ; Start 05/01/18 at 09:00 Assessment/Plan Hospital Course (Demo Recall) IMPRESSION AND Acute on chronic hypoxemic and hypercapnic respiratory failure likely secondary to combination of chronic obstructive pulmonary disease exacerbation and congestive cardiac failure. Probable underlying obesity hypoventilation syndrome Probable obstructive sleep apnea also Recommendations 1. Diuresis. 2. Supplemental O2. Nocturnal noninvasive positive pressure ventilation 3. Bronchodilators. 4. Steroid taper. 5. ABG on room air to evaluate for home O2 6. Outpatient sleep study. 7. Outpatient nocturnal polysomnogram. Consider discharge tomorrow MILANA CHINCHILLA MD, [facility] Apr 30, 2018 11:32
[2018-04-30] MEDS ORDERED: METOPROLOL 50 MG TAB PO ONE ×2 (12:30→14:00)
[2018-04-30] MEDS: CEFTRIAXONE 2 GM/50 ML (PMX) 50 ML IVPB SCH (13:21)
[2018-04-30] MEDS ORDERED: METOPROLOL 100 MG TAB PO STA (15:11)
[2018-04-30] MEDS ORDERED: IOHEXOL 100 ML ONE (15:44)
[2018-04-30] MEDS ORDERED: IOHEXOL 350MG/ML 50 ML BTL ONE (15:44)
[2018-04-30] MEDS ORDERED: SOD CHLORIDE 0.9% 100 ML ONE (15:44)
[2018-04-30] MEDS ORDERED: METOPROLOL 5 MG INJ ONE (15:53)
[2018-04-30] MEDS ORDERED: NITROGLYCERIN AEROSOL (4.9 GM) ONE (15:53)
--- NOTE | 2018-04-30 16:23 | CONS ---
Assessment/Plan Cardiology NYHA: III Heart Failure Type: Acute Heart Failure Type: Systolic Assessment/Plan Hospital Course (Demo Recall) Acute decompensated systolic congestive heart failure Cardiomyopathy with left ventricular ejection fraction 30% COPD exacerbation Respiratory failure, off BiPAP History of hypertension History of dyslipidemia Active tobacco use -Respiratory status is much better and is off BiPAP. He still requires approximately 6 L of nasal cannula supplementation. -Telemetry reviewed with episodes of wide-complex tachycardia at times, VT versus aberrancy. Will uptitrate beta-tyra. Would consider ischemic workup. -TIMOTHY inhibitor and titrate as renal function and blood pressure permits -Change IV diuretics to daily -Maintain potassium above 4.0 and magnesium above 2.0 -Smoking cessation Consultation Date/Type/Reason Admit Date/Time Apr 26, 2018 at 19:40 Initial Consult Date Type of Consult Cardiology Date/Time of Note DATE: 04/30/18 TIME: 16:21 24 HR Interval Summary Free Text/Dictation Shortness of breath is much better. Denies palpitations, chest pain, dizziness. Ambulating feeling much better Exam/Review of Systems Vital Signs Vitals Vital Signs Date Temp Pulse Resp B/P (MAP) Pulse Ox O2 O2 Flow FiO2 Time Delivery Rate 04/30/18 98.0 66 18 112/67 93 Nasal 15:03 (82) Cannula 04/30/18 4.0 12:32 04/27/18 35 13:10 Intake and Output 04/29/18 04/29/18 04/30/18 1515:00 23:00 07:00 IntakeIntake Total 940 ml OutputOutput Total 1200 ml BalanceBalance -260 ml Exam Constitutional: alert, oriented (No apparent distress) Head: normocephalic Respiratory: other (Coarse breath sounds bilaterally, no wheezing) Cardiovascular: regular rate and rhythm (S1-S2 heard) Gastrointestinal: soft, non-tender, bowel sounds Extremities: edema Labs Result Diagram: 04/30/18 0624 04/30/18 0624 Results 24hrs Laboratory Tests Test 04/30/18 06:24 04/30/18 12:00 White Blood Count 15.2 #H Red Blood Count 5.82 Hemoglobin 17.7 Hematocrit 56.4 H Mean Corpuscular Volume 96.9 Mean Corpuscular Hemoglobin 30.4 Mean Corpuscular Hemoglobin Concent 31.4 L Red Cell Distribution Width 14.2 Platelet Count 289 Mean Platelet Volume 10.8 H Immature Granulocytes % 2.200 H Neutrophils % 84.9 H Lymphocytes % 7.0 L Monocytes % 5.4 Eosinophils % 0.1 Basophils % 0.4 Nucleated Red Blood Cells % 0.0 Immature Granulocytes # 0.330 H Neutrophils # 12.9 H Lymphocytes # 1.1 Monocytes # 0.8 Eosinophils # 0.0 Basophils # 0.1 Nucleated Red Blood Cells # 0.0 Sodium Level 139 Potassium Level 5.0 Chloride Level 89 L Carbon Dioxide Level 39 H Anion Gap 11 Blood Urea Nitrogen 46 H Creatinine 0.98 Est Glomerular Filtrat Rate mL/min > 60 Glucose Level 150 Calcium Level 9.1 Total Bilirubin 0.5 Direct Bilirubin 0.00 Indirect Bilirubin 0.5 Aspartate Amino Transf (AST/SGOT) 48 H Alanine Aminotransferase (ALT/SGPT) 33 Alkaline Phosphatase 49 Total Protein 6.9 Albumin 3.7 Globulin 3.20 Albumin/Globulin Ratio 1.15 Blood Gas Specimen Source Blood arterial Arterial Blood Date Drawn 04/30/2018 12:25:49 PM Arterial Blood pH (Temp corrected) 7.453 H Arterial Blood pCO2 (Temp correct) 50.8 H Arterial Blood pO2 (Temp corrected) 53.6 *L Arterial Blood HCO3 34.8 H Arterial Blood Base Excess 8.6 H Arterial Blood Oxygen Saturation 88.6 L Simeon Test ACCEPTAB Arterial Blood Gas Puncture Site Right Radial Arterial Blood Carboxyhemoglobin 0.3 Arterial Blood Methemoglobin 0.3 Blood Gas A-a O2 Differential 35.3 H Oxyhemoglobin Percent 88.1 L Blood Gas Temperature 37.0 Blood Gas Modality ROOM AIR FiO2 21.0 Blood Gas Critical Value Read Back CHRISTIANO PANTOJA Blood Gas Notified Whom TM Blood Gas Notified Time 04/30/2018 12:35:38 PM Medications Medications Current Medications Aspirin (Halfprin) 81 mg DAILY PO Last administered on 04/30/18at 08:56; Admin Dose 81 MG; Start 04/27/18 at 09:00 Atorvastatin Calcium (Lipitor) 20 mg DAILY@21 PO Last administered on 04/29/18at 20:32; Admin Dose 20 MG; Start 04/27/18 at 21:00 IV Flush (NS 3 ml) 3 ml PER PROTOCOL IV ; Start 04/26/18 at 20:30 Ondansetron HCl (Zofran Inj) 4 mg Q6H PRN IV NAUSEA/VOMITING; Start 04/26/18 at 20:30 Acetaminophen (Tylenol Tab) 650 mg Q6H PRN PO .PAIN 1-3 OR TEMP Last administered on 04/30/18 09:05; Admin Dose 650 MG; Start 04/26/18 at 20:30 Docusate Sodium (Colace) 100 mg Q12H PRN PO .CONSTIPATION; Start 04/26/18 at 20:30 Magnesium Hydroxide (Milk Of Mag) 30 ml DAILY PRN PO .CONSTIPATION; Start 04/26/18 at 20:30 Pantoprazole (Protonix Tab) 40 mg DAILY@06 PO Last administered on 04/30/18 06:24; Admin Dose 40 MG; Start 04/27/18 at 06:00 Heparin Sodium (Porcine) (Heparin (5000 Units/1ml)) 5,000 unit Q8 SC Last administered on 04/30/18 13:24; Admin Dose 5,000 UNIT; Start 04/26/18 at 22:00 Furosemide (Lasix) 40 mg BID DIURETICS IV Last administered on 04/30/18 06:23; Admin Dose 40 MG; Start 04/27/18 at 08:00 Albuterol/ Ipratropium (Duoneb) 3 ml Q4H RESP THERAPY HHN Last administered on 04/30/18 12:28; Admin Dose 3 ML; Start 04/27/18 at 13:00 Albuterol (Proventil 0.083% (Neb)) 1.25 mg Q2H RESP THERAPY PRN HHN SHORTNESS OF BREATH; Start 04/27/18 at 11:30 Benazepril HCl (Lotensin) 10 mg BID PO Last administered on 04/30/18 08:56; Admin Dose 10 MG; Start 04/28/18 at 09:00 Ceftriaxone Sodium 50 ml @ 100 mls/hr Q24H IVPB Last administered on 04/30/18 13:21; Admin Dose 100 MLS/HR; Start 04/27/18 at 14:00 Montelukast Sodium (Singulair) 10 mg HS PO Last administered on 04/29/18 20:32; Admin Dose 10 MG; Start 04/28/18 at 21:00 Fluticasone/ Vilanterol (Breo Ellipta 100-25 Mcg Inh) 1 inh DAILY INH Last administered on 04/30/18 11:25; Admin Dose 1 INH; Start 04/28/18 at 09:00 Tiotropium [place] (Spiriva) 1 inh DAILY INH Last administered on 04/30/18at 10:51; Admin Dose 1 INH; Start 04/28/18 at 09:00 Spironolactone (Aldactone) 25 mg DAILY PO Last administered on 04/30/18 08:55; Admin Dose 25 MG; Start 04/28/18 at 09:00 Magnesium Oxide (Mag-Ox 400) 400 mg DAILY PO Last administered on 04/30/18 08:56; Admin Dose 400 MG; Start 04/29/18 at 09:00 Methylprednisolone Sodium Succinate (Solu-Medrol) 20 mg Q12 IV Last administered on 04/30/18 08:57; Admin Dose 20 MG; Start 04/29/18 at 21:00; Stop 04/30/18 at 22:00 Metoprolol Succinate (Toprol Xl) 50 mg BID PO Last administered on 04/30/18 08:55; Admin Dose 50 MG; Start 04/29/18 at 21:00 Prednisone (Prednisone) 40 mg DAILY PO ; Start 05/01/18 at 09:00 Driss Bolanos DO Apr 30, 2018 16:23
[2018-04-30] MEDS: MONTELUKAST 10 MG TAB PO SCH (20:39)
[2018-04-30] MEDS: ATORVASTATIN 20 MG TAB PO SCH (20:39)
[2018-05-01] VITALS (12 sets, daily range): BP systolic 105–140; BP diastolic 68–86; PULSE 67–150; RESP 18–20
[2018-05-01] MEDS: ALBUTEROL/IPRATROPIUM (NEB) 3 ML AMP HHN SCH ×7 (00:04→21:30)
[2018-05-01] MEDS: PANTOPRAZOLE (EC) 40 MG TAB PO SCH (05:59)
[2018-05-01] MEDS: HEPARIN 5,000 UNIT/1 ML VIAL SC SCH ×3 (06:07→21:29)
[2018-05-01] MEDS: ACETAMINOPHEN 325 MG TAB PO PRN ×2 (07:05→17:21)
[2018-05-01] MEDS: SPIRONOLACTONE 25 MG TAB PO SCH (08:31)
[2018-05-01] MEDS: MAGNESIUM OXIDE 400 MG TAB PO SCH (08:31)
[2018-05-01] MEDS: BENAZEPRIL 10 MG TAB PO SCH ×2 (08:31→21:20)
[2018-05-01] MEDS: ASPIRIN (EC) 81 MG TAB PO SCH (08:32)
[2018-05-01] MEDS: METOPROLOL (XL) 50 MG TAB PO SCH (08:32)
[2018-05-01] MEDS: FLUTICASONE/VILANTEROL 100-25 INH SCH (08:33)
[2018-05-01] MEDS: predniSONE 20 MG TAB PO SCH (08:33)
[2018-05-01] MEDS ORDERED: FUROSEMIDE 40 MG INJ IV SCH (09:00)
[2018-05-01] MEDS: TIOTROPIUM 18 MCG CAPSULE INHA DEV INH SCH (09:00)
--- NOTE | 2018-05-01 11:18 | CONS ---
Consult Date/Type/Reason Admit Date/Time Apr 26, 2018 at 19:40 Initial Consult Date Type of Consult Pulmonary Date/Time of Note DATE: 05/01/18 TIME: 11:15 Subjective Patient slowly improving however he remains anxious to leave. He did not wear his BiPAP overnight. Desaturating on exertion despite 4 L nasal cannula. Objective Vital Signs Date Temp Pulse Resp B/P (MAP) Pulse Ox O2 O2 Flow FiO2 Time Delivery Rate 05/01/18 92 20 95 Nasal 4.0 08:42 Cannula 05/01/18 98.4 124/73 07:16 (90) 04/27/18 35 13:10 Intake and Output 04/30/18 04/30/18 05/01/18 1515:00 23:00 07:00 IntakeIntake Total 50 ml 680 ml 400 ml OutputOutput Total 880 ml 1450 ml BalanceBalance 50 ml -200 ml -1050 ml Exam GENERAL: Well-nourished well-developed gentleman comfortable at rest no acute distress VITAL SIGNS: per chart NECK: Supple. No JVD or lymphadenopathy. CARDIAC EXAM: S1, S2. No added sounds or murmurs. CHEST: Edema +1 diminished air entry bilaterally with rales and wheezes ABDOMEN: Soft, nontender. No guarding or rebound. EXTREMITIES: No cyanosis, clubbing edema +1 NEUROLOGIC: Generalized weakness. No focal deficits. Results/Medications Result Diagram: 05/01/18 0654 05/01/18 0654 Results 24 hrs Laboratory Tests Test 04/30/18 12:00 05/01/18 06:54 Blood Gas Specimen Source Blood arterial Arterial Blood Date Drawn 04/30/2018 12:25:49 PM Arterial Blood pH (Temp corrected) 7.453 H Arterial Blood pCO2 (Temp correct) 50.8 H Arterial Blood pO2 (Temp corrected) 53.6 *L Arterial Blood HCO3 34.8 H Arterial Blood Base Excess 8.6 H Arterial Blood Oxygen Saturation 88.6 L Simeon Test ACCEPTAB Arterial Blood Gas Puncture Site Right Radial Arterial Blood Carboxyhemoglobin 0.3 Arterial Blood Methemoglobin 0.3 Blood Gas A-a O2 Differential 35.3 H Oxyhemoglobin Percent 88.1 L Blood Gas Temperature 37.0 Blood Gas Modality ROOM AIR FiO2 21.0 Blood Gas Critical Value Read Back CHRISTIANO PANTOJA Blood Gas Notified Whom TM Blood Gas Notified Time 04/30/2018 12:35:38 PM White Blood Count 17.0 H Red Blood Count 5.93 Hemoglobin 17.8 Hematocrit 56.2 H Mean Corpuscular Volume 94.8 Mean Corpuscular Hemoglobin 30.0 Mean Corpuscular Hemoglobin Concent 31.7 L Red Cell Distribution Width 14.1 Platelet Count 284 Mean Platelet Volume 10.0 Immature Granulocytes % 2.100 H Neutrophils % 76.2 Lymphocytes % 9.7 L Monocytes % 11.7 H Eosinophils % 0.0 Basophils % 0.3 Nucleated Red Blood Cells % 0.0 Immature Granulocytes # 0.360 H Neutrophils # 13.0 H Lymphocytes # 1.7 Monocytes # 2.0 H Eosinophils # 0.0 Basophils # 0.1 Nucleated Red Blood Cells # 0.0 Sodium Level 135 Potassium Level 5.0 Chloride Level 88 L Carbon Dioxide Level 40 H Anion Gap 7 Blood Urea Nitrogen 48 H Creatinine 0.88 Est Glomerular Filtrat Rate mL/min > 60 Glucose Level 106 # Calcium Level 9.0 Magnesium Level 2.5 Medications Current Medications Aspirin (Halfprin) 81 mg DAILY PO Last administered on 05/01/18at 08:32; Admin Dose 81 MG; Start 04/27/18 at 09:00 Atorvastatin Calcium (Lipitor) 20 mg DAILY@21 PO Last administered on 04/30/18at 20:39; Admin Dose 20 MG; Start 04/27/18 at 21:00 IV Flush (NS 3 ml) 3 ml PER PROTOCOL IV ; Start 04/26/18 at 20:30 Ondansetron HCl (Zofran Inj) 4 mg Q6H PRN IV NAUSEA/VOMITING; Start 04/26/18 at 20:30 Acetaminophen (Tylenol Tab) 650 mg Q6H PRN PO .PAIN 1-3 OR TEMP Last administered on 05/01/18at 07:05; Admin Dose 650 MG; Start 04/26/18 at 20:30 Docusate Sodium (Colace) 100 mg Q12H PRN PO .CONSTIPATION; Start 04/26/18 at 20:30 Magnesium Hydroxide (Milk Of Mag) 30 ml DAILY PRN PO .CONSTIPATION; Start at 20:30 Pantoprazole (Protonix Tab) 40 mg DAILY@06 PO Last administered on 05/01/18at 05:59; Admin Dose 40 MG; Start 04/27/18 at 06:00 Heparin Sodium (Porcine) (Heparin (5000 Units/1ml)) 5,000 unit Q8 SC Last administered on 05/01/18 06:07; Admin Dose 5,000 UNIT; Start 04/26/18 at 22:00 Albuterol/ Ipratropium (Duoneb) 3 ml Q4H RESP THERAPY HHN Last administered on 05/01/18 08:42; Admin Dose 3 ML; Start 04/27/18 at 13:00 Albuterol (Proventil 0.083% (Neb)) 1.25 mg Q2H RESP THERAPY PRN HHN SHORTNESS OF BREATH; Start 04/27/18 at 11:30 Benazepril HCl (Lotensin) 10 mg BID PO Last administered on 05/01/18 08:31; Admin Dose 10 MG; Start 04/28/18 at 09:00 Ceftriaxone Sodium 50 ml @ 100 mls/hr Q24H IVPB Last administered on 04/30/18 13:21; Admin Dose 100 MLS/HR; Start 04/27/18 at 14:00 Montelukast Sodium (Singulair) 10 mg HS PO Last administered on 04/30/18 20:39; Admin Dose 10 MG; Start 04/28/18 at 21:00 Fluticasone/ Vilanterol (Breo Ellipta 100-25 Mcg Inh) 1 inh DAILY INH Last a dministered on 05/01/18 08:33; Admin Dose 1 INH; Start 04/28/18 at 09:00 Tiotropium [place] (Spiriva) 1 inh DAILY INH Last administered on 04/30/18 10:51; Admin Dose 1 INH; Start 04/28/18 at 09:00 Spironolactone (Aldactone) 25 mg DAILY PO Last administered on 05/01/18 08:31; Admin Dose 25 MG; Start 04/28/18 at 09:00 Magnesium Oxide (Mag-Ox 400) 400 mg DAILY PO Last administered on 05/01/18 08: 31; Admin Dose 400 MG; Start 04/29/18 at 09:00 Metoprolol Succinate (Toprol Xl) 50 mg BID PO Last administered on 05/01/18 08:32; Admin Dose 50 MG; Start 04/29/18 at 21:00 Prednisone (Prednisone) 40 mg DAILY PO Last administered on 3/12/19at 08:33; Admin Dose 40 MG; Start 05/01/18 at 09:00 Furosemide (Lasix) 40 mg DAILY IV Last administered on 05/01/18at 08:33; Admin Dose 40 MG; Start 05/01/18 at 09:00 Assessment/Plan Hospital Course (Demo Recall) IMPRESSION AND Acute on chronic hypoxemic and hypercapnic respiratory failure likely secondary to combination of chronic obstructive pulmonary disease exacerbation and congestive cardiac failure. Probable underlying obesity hypoventilation syndrome. Severe emphysema noted on CT. Probable obstructive sleep apnea also Recommendations 1. Diuresis. 2. Supplemental O2. Nocturnal noninvasive positive pressure ventilation 3. Bronchodilators. 4. Steroid taper. 5. ABG on room air to evaluate for home O2 shows patient will need 4 L supplemental O2 continuous 6. Outpatient sleep study. 7. Outpatient nocturnal polysomnogram. Transfer to [facility] Discharge tomorrow MILANA CHINCHILLA MD, [facility] May 01, 2018 11:18
--- NOTE | 2018-05-01 12:28 | PN ---
Date/Time of Note Date/Time of Note DATE: 05/01/18 TIME: 12:26 Assessment/Plan VTE Prophylaxis Risk score (from Ns)>0 risk: 5 SCD applied (from Ns): No SCD contraindicated: other Pharmacological prophylaxis: heparin Lines/Catheters IV [facility] [place] Urinary Cath still in place: No Assessment/Plan Hospital Course SUBJECTIVE: Had 9 beats of V. tach this morning. No chest pain reported. OBJECTIVE: Vital signs-see below PHYSICAL EXAM: Constitutional: Well-developed, adequately built, male, in respiratory distress, on BiPAP psych: nl mood/affect, no complaints Head: atraumatic, normocephalic Eyes: nl conjunctiva, nl sclera ENMT: mucosa pink and moist, nl external ears & nose Neck: non-tender, supple Respiratory: Diminished bibasilar..clear to auscultation, normal air movement Cardiovascular: nl pulses, regular rate and rhythm Gastrointestinal: non-tender, soft, bowel sounds active in all 4 quadrants. Musculoskeletal/extremities:+Pitting edema bilaeral LEs. nl extremities to inspection, motor strength equal bilaterally, no focal deficit. Normal pulses,no cyanosis. Neurological: Alert oriented 3,nl speech, nl strength Skin: nl turgor ASSESSMENT/PLAN: 62-year-old male w/htn, hyperlipidemia,tobacco use, who has no pcp checks 2/2 insurance issues, has been having progressive SOB,jessica.LE edma for months for which no workup has been done, here with worsening shortness of breath to a point that he experiences breathing difficulties/cough/wheezing/worsening jessica le edema even during small distance walking 5 days.....found to have sever CHF/COPD 1. Acute hypoxemic/hypercapnic respiratory failure, multifactorial with CHF exacerbation/COPD exacerbation/possible TAMANNA component. -Gradually improving.. -cont. titrate o2 down to keep spo2>92 -Patient would need home oxygen most likely. -pulmonary f/u, sleep study (outpt) 2. Acute decompensated systolic congestive heart failure -clinically improving gradually.. -Cont. diuretic/AEi/Aldactone/BB -May be a candidate for AICD prior to discharge per cards. -CT coronary angiography noted. F/u cards recs.. 3. Nonsustained Ventricular Tachycardia -no cp -currently SR W/BBB -Follow-up cardiology recommendations. Continue beta-blockers. 4.COPD -now Stable. -Start COPD maintenance management including addition of LABA. -cont. PRN BEL -Smoking cessation advised. 5. Hypertension -Stable. Continue antihypertensives 6. Dyslipidemia -On statin 7.Obesity with a BMI 38.3. -A1c/lipid panel within acceptable range. Weight reduction advised. 8. Tobacco use -Cessation advised DVT prophylaxis: Heparin PUD prophylaxis: Protonix CODE STATUS: Full code Diet: 2 g sodium/cardiac diet. Disposition: Continue titrating oxygen. PT evaluation. Case management to arrange home oxygen. Follow-up cardiology/pulmonary recommendations. Patient had a documented heart rate 150 today, as such recommend keeping patient in tele metry floor until cleared from a cardiology standpoint to downgrade. Patient was seen in collaboration w/ Result Diagram: 05/01/18 0654 05/01/18 0654 Results 24hrs Laboratory Tests Test 05/01/18 06:54 White Blood Count 17.0 H Red Blood Count 5.93 Hemoglobin 17.8 Hematocrit 56.2 H Mean Corpuscular Volume 94.8 Mean Corpuscular Hemoglobin 30.0 Mean Corpuscular Hemoglobin Concent 31.7 L Red Cell Distribution Width 14.1 Platelet Count 284 Mean Platelet Volume 10.0 Immature Granulocytes % 2.100 H Neutrophils % 76.2 Lymphocytes % 9.7 L Monocytes % 11.7 H Eosinophils % 0.0 Basophils % 0.3 Nucleated Red Blood Cells % 0.0 Immature Granulocytes # 0.360 H Neutrophils # 13.0 H Lymphocytes # 1.7 Monocytes # 2.0 H Eosinophils # 0.0 Basophils # 0.1 Nucleated Red Blood Cells # 0.0 Sodium Level 135 Potassium Level 5.0 Chloride Level 88 L Carbon Dioxide Level 40 H Anion Gap 7 Blood Urea Nitrogen 48 H Creatinine 0.88 Est Glomerular Filtrat Rate mL/min > 60 Glucose Level 106 # Calcium Level 9.0 Magnesium Level 2.5 Exam/Review of Systems Exam Vitals Vital Signs Date Temp Pulse Resp B/P (MAP) Pulse Ox O2 O2 Flow FiO2 Time Delivery Rate 05/01/18 71 12:13 05/01/18 98.4 19 105/68 95 11:42 (80) 05/01/18 Nasal 4.0 08:42 Cannula 04/27/18 35 13:10 Intake and Output 04/30/18 04/30/1805/01/19 1515:00 23:00 07:00 IntakeIntake Total 50 ml 680 ml 400 ml OutputOutput Total 880 ml 1450 ml BalanceBalance 50 ml -200 ml -1050 ml Results Results 24hrs Laboratory Tests Test 05/01/18 06:54 White Blood Count 17.0 H Red Blood Count 5.93 Hemoglobin 17.8 Hematocrit 56.2 H Mean Corpuscular Volume 94.8 Mean Corpuscular Hemoglobin 30.0 Mean Corpuscular Hemoglobin Concent 31.7 L Red Cell Distribution Width 14.1 Platelet Count 284 Mean Platelet Volume 10.0 Immature Granulocytes % 2.100 H Neutrophils % 76.2 Lymphocytes % 9.7 L Monocytes % 11.7 H Eosinophils % 0.0 Basophils % 0.3 Nucleated Red Blood Cells % 0.0 Immature Granulocytes # 0.360 H Neutrophils # 13.0 H Lymphocytes # 1.7 Monocytes # 2.0 H Eosinophils # 0.0 Basophils # 0.1 Nucleated Red Blood Cells # 0.0 Sodium Level 135 Potassium Level 5.0 Chloride Level 88 L Carbon Dioxide Level 40 H Anion Gap 7 Blood Urea Nitrogen 48 H Creatinine 0.88 Est Glomerular Filtrat Rate mL/min > 60 Glucose Level 106 # Calcium Level 9.0 Magnesium Level 2.5 Medications Medication Current Medications Aspirin (Halfprin) 81 mg DAILY PO Last administered on 05/01/18at 08:32; Admin Dose 81 MG; Start 04/27/18 at 09:00 Atorvastatin Calcium (Lipitor) 20 mg DAILY@21 PO Last administered on 04/30/18at 20:39; Admin Dose 20 MG; Start 04/27/18 at 21:00 IV Flush (NS 3 ml) 3 ml PER PROTOCOL IV ; Start 04/26/18 at 20:30 Ondansetron HCl (Zofran Inj) 4 mg Q6H PRN IV NAUSEA/VOMITING; Start 04/26/18 at 20:30 Acetaminophen (Tylenol Tab) 650 mg Q6H PRN PO .PAIN 1-3 OR TEMP Last administered on 05/01/18at 07:05; Admin Dose 650 MG; Start 04/26/18 at 20:30 Docusate Sodium (Colace) 100 mg Q12H PRN PO .CONSTIPATION; Start 04/26/18 at 20:30 Magnesium Hydroxide (Milk Of Mag) 30 ml DAILY PRN PO .CONSTIPATION; Start 04/26/18 at 20:30 Pantoprazole (Protonix Tab) 40 mg DAILY@06 PO Last administered on 05/01/18 05:59; Admin Dose 40 MG; Start 04/27/18 at 06:00 Heparin Sodium (Porcine) (Heparin (5000 Units/1ml)) 5,000 unit Q8 SC Last administered on 05/01/18 06:07; Admin Dose 5,000 UNIT; Start 04/26/18 at 22:00 Albuterol/ Ipratropium (Duoneb) 3 ml Q4H RESP THERAPY HHN Last administered on 05/01/18 08:42; Admin Dose 3 ML; Start 04/27/18 at 13:00 Albuterol (Proventil 0.083% (Neb)) 1.25 mg Q2H RESP THERAPY PRN HHN SHORTNESS OF BREATH; Start 04/27/18 at 11:30 Benazepril HCl (Lotensin) 10 mg BID PO Last administered on 05/01/18 08:31; Admin Dose 10 MG; Start 04/28/18 at 09:00 Ceftriaxone Sodium 50 ml @ 100 mls/hr Q24H IVPB Last administered on 04/30/18 13:21; Admin Dose 100 MLS/HR; Start 04/27/18 at 14:00 Montelukast Sodium (Singulair) 10 mg HS PO Last administered on 04/30/18 20:39; Admin Dose 10 MG; Start 04/28/18 at 21:00 Fluticasone/ Vilanterol (Breo Ellipta 100-25 Mcg Inh) 1 inh DAILY INH Last administered on 05/01/18 08:33; Admin Dose 1 INH; Start 04/28/18 at 09:00 Tiotropium [place] (Spiriva) 1 inh DAILY INH Last administered on 04/30/18 10:51; Admin Dose 1 INH; Start 04/28/18 at 09:00 Spironolactone (Aldactone) 25 mg DAILY PO Last administered on 05/01/18 08:31; Admin Dose 25 MG; Start 04/28/18 at 09:00 Magnesium Oxide (Mag-Ox 400) 400 mg DAILY PO Last administered on 05/01/18 08:31; Admin Dose 400 MG; Start 3/10/19 at 09:00 Metoprolol Succinate (Toprol Xl) 50 mg BID PO Last administered on 05/01/18at 08:32; Admin Dose 50 MG; Start 04/29/18 at 21:00 Prednisone (Prednisone) 40 mg DAILY PO Last administered on 05/01/18at 08:33; Admin Dose 40 MG; Start 05/01/18 at 09:00 Furosemide (Lasix) 40 mg DAILY IV Last administered on 05/01/18 08:33; Admin Dose 40 MG; Start 05/01/18 at 09:00 CRISPIN STONE NP May 01, 2018 12:28
[2018-05-01] MEDS: CEFTRIAXONE 2 GM/50 ML (PMX) 50 ML IVPB SCH (14:13)
--- NOTE | 2018-05-01 15:31 | CONS ---
Assessment/Plan Cardiology NYHA: III Heart Failure Type: Acute Heart Failure Type: Systolic Assessment/Plan Hospital Course (Demo Recall) Acute decompensated systolic congestive heart failure Cardiomyopathy with left ventricular ejection fraction 30% Nonobstructive coronary artery disease CT coronary angiogram 04/30/2018 COPD exacerbation Respiratory failure, off BiPAP History of hypertension History of dyslipidemia Active tobacco use -CT coronary angiogram performed yesterday with no evidence of obstructive coronary artery disease -Will uptitrate beta-tyra -TIMOTHY inhibitor and titrate as renal function and blood pressure permits -Change diuretics to p.o. -Maintain potassium above 4.0 and magnesium above 2.0 -Smoking cessation -Since of discussion with patient and daughter over the phone regarding findings and cardiac situation -DC planning Consultation Date/Type/Reason Admit Date/Time Apr 26, 2018 at 19:40 Initial Consult Date Type of Consult Cardiology Date/Time of Note DATE: 05/01/18 TIME: 15:29 24 HR Interval Summary Free Text/Dictation Shortness of breath continues to improve. Denies chest pain, palpitations or dizziness Exam/Review of Systems Vital Signs Vitals Vital Signs Date Temp Pulse Resp B/P (MAP) Pulse Ox O2 O2 Flow FiO2 Time Delivery Rate 05/01/18 98.4 79 19 132/80 90 15:20 (97) 05/01/18 4.0 13:30 05/01/18 Nasal 13:30 Cannula 04/27/18 35 13:10 Intake and Output 04/30/18 04/30/18 05/01/18 1515:00 23:00 07:00 IntakeIntake Total 50 ml 680 ml 400 ml OutputOutput Total 880 ml 1450 ml BalanceBalance 50 ml -200 ml -1050 ml Exam Constitutional: alert, oriented (No apparent distress) Head: normocephalic Respiratory: other (Coarse breath sounds bilaterally, no wheezing) Cardiovascular: regular rate and rhythm (S1 S2 heard) Gastrointestinal: soft, non-tender, bowel sounds Extremities: edema Labs Result Diagram: 05/01/18 0654 05/01/18 0654 Results 24hrs Laboratory Tests Test 05/01/18 06:54 White Blood Count 17.0 H Red Blood Count 5.93 Hemoglobin 17.8 Hematocrit 56.2 H Mean Corpuscular Volume 94.8 Mean Corpuscular Hemoglobin 30.0 Mean Corpuscular Hemoglobin Concent 31.7 L Red Cell Distribution Width 14.1 Platelet Count 284 Mean Platelet Volume 10.0 Immature Granulocytes % 2.100 H Neutrophils % 76.2 Lymphocytes % 9.7 L Monocytes % 11.7 H Eosinophils % 0.0 Basophils % 0.3 Nucleated Red Blood Cells % 0.0 Immature Granulocytes # 0.360 H Neutrophils # 13.0 H Lymphocytes # 1.7 Monocytes # 2.0 H Eosinophils # 0.0 Basophils # 0.1 Nucleated Red Blood Cells # 0.0 Sodium Level 135 Potassium Level 5.0 Chloride Level 88 L Carbon Dioxide Level 40 H Anion Gap 7 Blood Urea Nitrogen 48 H Creatinine 0.88 Est Glomerular Filtrat Rate mL/min > 60 Glucose Level 106 # Calcium Level 9.0 Magnesium Level 2.5 Medications Medications Current Medications Aspirin (Halfprin) 81 mg DAILY PO Last administered on 05/01/18 08:32; Admin Dose 81 MG; Start 04/27/18 at 09:00 Atorvastatin Calcium (Lipitor) 20 mg DAILY@21 PO Last administered on 04/30/18 20:39; Admin Dose 20 MG; Start 04/27/18 at 21:00 IV Flush (NS 3 ml) 3 ml PER PROTOCOL IV ; Start 04/26/18 at 20:30 Ondansetron HCl (Zofran Inj) 4 mg Q6H PRN IV NAUSEA/VOMITING; Start 04/26/18 at 20:30 Acetaminophen (Tylenol Tab) 650 mg Q6H PRN PO .PAIN 1-3 OR TEMP Last administered on 05/01/18 07:05; Admin Dose 650 MG; Start 04/26/18 at 20:30 Docusate Sodium (Colace) 100 mg Q12H PRN PO .CONSTIPATION; Start 04/26/18 at 20:30 Magnesium Hydroxide (Milk Of Mag) 30 ml DAILY PRN PO .CONSTIPATION; Start 04/26/18 at 20:30 Pantoprazole (Protonix Tab) 40 mg DAILY@06 PO Last administered on 05/01/18 05:59; Admin Dose 40 MG; Start 04/27/18 at 06:00 Heparin Sodium (Porcine) (Heparin (5000 Units/1ml)) 5,000 unit Q8 SC Last administered on 05/01/18 14:14; Admin Dose 5,000 UNIT; Start 04/26/18 at 22:00 Albuterol/ Ipratropium (Duoneb) 3 ml Q4H RESP THERAPY HHN Last administered on 05/01/18 13:30; Admin Dose 3 ML; Start 04/27/18 at 13:00 Albuterol (Proventil 0.083% (Neb)) 1.25 mg Q2H RESP THERAPY PRN HHN SHORTNESS OF BREATH; Start 04/27/18 at 11:30 Benazepril HCl (Lotensin) 10 mg BID PO Last administered on 05/01/18 08:31; Admin Dose 10 MG; Start 04/28/18 at 09:00 Ceftriaxone Sodium 50 ml @ 100 mls/hr Q24H IVPB Last administered on 05/01/18 14:13; Admin Dose 100 MLS/HR; Start 04/27/18 at 14:00 Montelukast Sodium (Singulair) 10 mg HS PO Last administered on 04/30/18 20:39; Admin Dose 10 MG; Start 04/28/18 at 21:00 Fluticasone/ Vilanterol (Breo Ellipta 100-25 Mcg Inh) 1 inh DAILY INH Last administered on 05/01/18 08:33; Admin Dose 1 INH; Start 04/28/18 at 09:00 Tiotropium [place] (Spiriva) 1 inh DAILY INH Last administered on 04/30/18 10:51; Admin Dose 1 INH; Start 04/28/18 at 09:00 Spironolactone (Aldactone) 25 mg DAILY PO Last administered on 05/01/18 08:31; Admin Dose 25 MG; Start 04/28/18 at 09:00 Magnesium Oxide (Mag-Ox 400) 400 mg DAILY PO Last administered on 05/01/18 08:31; Admin Dose 400 MG; Start 04/29/18 at 09:00 Metoprolol Succinate (Toprol Xl) 50 mg BID PO Last administered on 05/01/18 08:32; Admin Dose 50 MG; Start 04/29/18 at 21:00 Prednisone (Prednisone) 40 mg DAILY PO Last administered on 05/01/18 08:33; Ad min Dose 40 MG; Start 05/01/18 at 09:00 Furosemide (Lasix) 40 mg DAILY IV Last administered on 05/01/18 08:33; Admin Dose 40 MG; Start 3/12/19 at 09:00 Driss Bolanos DO May 01, 2018 15:31
[2018-05-01] MEDS: ATORVASTATIN 20 MG TAB PO SCH (21:19)
[2018-05-01] MEDS: MONTELUKAST 10 MG TAB PO SCH (21:20)
[2018-05-01] MEDS: METOPROLOL (XL) 100 MG TAB PO SCH (21:20)
[2018-05-02] VITALS (11 sets, daily range): BP systolic 108–132; BP diastolic 62–87; PULSE 68–78; RESP 18–20
[2018-05-02] MEDS: ALBUTEROL/IPRATROPIUM (NEB) 3 ML AMP HHN SCH ×5 (01:00→17:00)
[2018-05-02] MEDS: PANTOPRAZOLE (EC) 40 MG TAB PO SCH (06:08)
[2018-05-02] MEDS: HEPARIN 5,000 UNIT/1 ML VIAL SC SCH ×2 (06:16→14:12)
[2018-05-02] MEDS: MAGNESIUM OXIDE 400 MG TAB PO SCH (08:46)
[2018-05-02] MEDS: predniSONE 20 MG TAB PO SCH (08:46)
[2018-05-02] MEDS: BENAZEPRIL 10 MG TAB PO SCH ×2 (08:47→20:27)
[2018-05-02] MEDS: SPIRONOLACTONE 25 MG TAB PO SCH (08:47)
[2018-05-02] MEDS: METOPROLOL (XL) 100 MG TAB PO SCH ×2 (08:48→20:27)
[2018-05-02] MEDS: ASPIRIN (EC) 81 MG TAB PO SCH (08:48)
[2018-05-02] MEDS: FLUTICASONE/VILANTEROL 100-25 INH SCH (08:50)
[2018-05-02] MEDS ORDERED: FUROSEMIDE 40 MG TAB PO SCH (09:00)
[2018-05-02] MEDS: TIOTROPIUM 18 MCG CAPSULE INHA DEV INH SCH (10:32)
--- NOTE | 2018-05-02 11:02 | PN ---
Date/Time of Note Date/Time of Note DATE: 05/02/18 TIME: 10:59 Assessment/Plan VTE Prophylaxis Risk score (from Ns)>0 risk: 6 SCD applied (from [facility]): No SCD contraindicated: other Pharmacological prophylaxis: heparin Lines/Catheters IV Catheter Type (from [facility]): Sal[place] Lock Urinary Cath still in place: No Assessment/Plan Hospital Course SUBJECTIVE: Patient continued to desaturate without supplemental oxygen. He refused BiPAP. OBJECTIVE: Vital signs-see below PHYSICAL EXAM: Constitutional: Well-developed, adequately built, male, in respiratory distress, on BiPAP psych: nl mood/affect, no complaints Head: atraumatic, normocephalic Eyes: nl conjunctiva, nl sclera ENMT: mucosa pink and moist, nl external ears & nose Neck: non-tender, supple Respiratory: Diminished bibasilar..clear to auscultation, normal air movement Cardiovascular: nl pulses, regular rate and rhythm Gastrointestinal: non-tender, soft, bowel sounds active in all 4 quadrants. Musculoskeletal/extremities:+Pitting edema bilaeral LEs. nl extremities to inspection, motor strength equal bilaterally, no focal deficit. Normal pulses,no cyanosis. Neurological: Alert oriented 3,nl speech, nl strength Skin: nl turgor ASSESSMENT/PLAN: 62-year-old male w/htn, hyperlipidemia,tobacco use, who has no pcp checks 2/2 insurance issues, has been having progressive SOB,jessica.LE edma for months for which no workup has been done, here with worsening shortness of breath to a point that he experiences breathing difficulties/cough/wheezing/worsening jessica le edema even during small distance walking 5 days.....found to have sever CHF/COPD 1. Acute oxygen dependent hypoxemic/hypercapnic respiratory failure, multifactorial with CHF exacerbation/COPD exacerbation/possible TAMANNA component. -cont. titrate o2 down to keep spo2>92 -Patient would need home oxygen most likely. -pulmonary f/u, sleep study (outpt) 2. Acute decompensated systolic congestive heart failure -clinically improving gradually.. -Cont. diuretic/AEi/Aldactone/BB -s/p CT coronary angiography, normal study 3. Nonsustained Ventricular Tachycardia, resolved -no cp -currently SR W/BBB -Follow-up cardiology recommendations. - Continue beta-blockers. 4.COPD -now Stable. -cont. PRN BEL,LABA. Add ICH and taper down prednisone. -Smoking cessation advised. 5. Hypertension -Stable. Continue antihypertensives 6. Dyslipidemia -On statin 7.Obesity with a BMI 38.3. -A1c/lipid panel within acceptable range. Weight reduction advised. 8. Tobacco use -Cessation advised DVT prophylaxis: Heparin PUD prophylaxis: Protonix CODE STATUS: Full code Diet: 2 g sodium/cardiac diet. Disposition: Overall, patient is clinically improved. However, he still requires oxygen. His insurance status is still pending and case management to work on getting home oxygen approved prior to discharge. Patient was seen in collaboration w/ Result Diagram: 05/02/18 0610 05/02/18 0610 Results 24hrs Laboratory Tests Test 05/02/18 06:10 White Blood Count 16.8 H Red Blood Count 6.07 Hemoglobin 18.6 H Hematocrit 57.0 H Mean Corpuscular Volume 93.9 Mean Corpuscular Hemoglobin 30.6 Mean Corpuscular Hemoglobin Concent 32.6 Red Cell Distribution Width 13.7 Platelet Count 268 Mean Platelet Volume 10.3 Immature Granulocytes % 2.100 H Neutrophils % 63.1 Lymphocytes % 20.9 Monocytes % 13.3 H Eosinophils % 0.2 Basophils % 0.4 Nucleated Red Blood Cells % 0.0 Immature Granulocytes # 0.360 H Neutrophils # 10.6 H Lymphocytes # 3.5 H Monocytes # 2.2 H Eosinophils # 0.0 Basophils # 0.1 Nucleated Red Blood Cells # 0.0 Sodium Level 135 Potassium Level 5.0 Chloride Level 89 L Carbon Dioxide Level 36 H Anion Gap 10 Blood Urea Nitrogen 51 H Creatinine 0.92 Est Glomerular Filtrat Rate mL/min > 60 Glucose Level 93 Calcium Level 9.3 Magnesium Level 2.5 Exam/Review of Systems Exam Vitals Vital Signs Date Temp Pulse Resp B/P (MAP) Pulse Ox O2 O2 Flow FiO2 Time Delivery Rate 05/02/18 78 20 96 Nasal 5.0 10:07 Cannula 05/02/18 97.2 132/83 07:20 (99) 05/02/18 35 03:59 Intake and Output 05/01/18 05/01/18 05/02/18 1515:00 23:00 07:00 IntakeIntake Total 1000 ml 800 ml OutputOutput Total 1450 ml 1100 ml BalanceBalance -450 ml -300 ml Results Results 24hrs Laboratory Tests Test 05/02/18 06:10 White Blood Count 16.8 H Red Blood Count 6.07 Hemoglobin 18.6 H Hematocrit 57.0 H Mean Corpuscular Volume 93.9 Mean Corpuscular Hemoglobin 30.6 Mean Corpuscular Hemoglobin Concent 32.6 Red Cell Distribution Width 13.7 Platelet Count 268 Mean Platelet Volume 10.3 Immature Granulocytes % 2.100 H Neutrophils % 63.1 Lymphocytes % 20.9 Monocytes % 13.3 H Eosinophils % 0.2 Basophils % 0.4 Nucleated Red Blood Cells % 0.0 Immature Granulocytes # 0.360 H Neutrophils # 10.6 H Lymphocytes # 3.5 H Monocytes # 2.2 H Eosinophils # 0.0 Basophils # 0.1 Nucleated Red Blood Cells # 0.0 Sodium Level 135 Potassium Level 5.0 Chloride Level 89 L Carbon Dioxide Level 36 H Anion Gap 10 Blood Urea Nitrogen 51 H Creatinine 0.92 Est Glomerular Filtrat Rate mL/min > 60 Glucose Level 93 Calcium Level 9.3 Magnesium Level 2.5 Medications Medication Current Medications Aspirin (Halfprin) 81 mg DAILY PO Last administered on 05/02/18at 08:48; Admin Dose 81 MG; Start 04/27/18 at 09:00 Atorvastatin Calcium (Lipitor) 20 mg DAILY@21 PO Last administered on 05/01/18at 21:19; Admin Dose 20 MG; Start 04/27/18 at 21:00 IV Flush (NS 3 ml) 3 ml PER PROTOCOL IV ; Start 04/26/18 at 20:30 Ondansetron HCl (Zofran Inj) 4 mg Q6H PRN IV NAUSEA/VOMITING; Start 04/26/18 at 20:30 Acetaminophen (Tylenol Tab) 650 mg Q6H PRN PO .PAIN 1-3 OR TEMP Last administered on 05/01/18at 17:21; Admin Dose 650 MG; Start 04/26/18 at 20:30 Docusate Sodium (Colace) 100 mg Q12H PRN PO .CONSTIPATION; Start 04/26/18 at 20:30 Magnesium Hydroxide (Milk Of Mag) 30 ml DAILY PRN PO .CONSTIPATION; Start 04/26/18 at 20:30 Pantoprazole (Protonix Tab) 40 mg DAILY@06 PO Last administered on 05/02/18at 06:08; Admin Dose 40 MG; Start 04/27/18 at 06:00 Heparin Sodium (Porcine) (Heparin (5000 Units/1ml)) 5,000 unit Q8 SC Last administered on 05/02/18 06:16; Admin Dose 5,000 UNIT; Start 04/26/18 at 22:00 Albuterol/ Ipratropium (Duoneb) 3 ml Q4H RESP THERAPY HHN Last administered on 05/02/18 08:54; Admin Dose 3 ML; Start 04/27/18 at 13:00 Albuterol (Proventil 0.083% (Neb)) 1.25 mg Q2H RESP THERAPY PRN HHN SHORTNESS OF BREATH; Start 04/27/18 at 11:30 Benazepril HCl (Lotensin) 10 mg BID PO Last administered on 05/02/18 08:47; Admin Dose 10 MG; Start 04/28/18 at 09:00 Ceftriaxone Sodium 50 ml @ 100 mls/hr Q24H IVPB Last administered on 05/01/18 14:13; Admin Dose 100 MLS/HR; Start 04/27/18 at 14:00 Montelukast Sodium (Singulair) 10 mg HS PO Last administered on 05/01/18 21:20; Admin Dose 10 MG; Start 04/28/18 at 21:00 Fluticasone/ Vilanterol (Breo Ellipta 100-25 Mcg Inh) 1 inh DAILY INH Last administered on 05/02/18 08:50; Admin Dose 1 INH; Start 04/28/18 at 09:00 Tiotropium [place] (Spiriva) 1 inh DAILY INH Last administered on 05/02/18 10:32; Admin Dose 1 INH; Start 04/28/18 at 09:00 Spironolactone (Aldactone) 25 mg DAILY PO Last administered on 05/02/18 08:47; Admin Dose 25 MG; Start 04/28/18 at 09:00 Magnesium Oxide (Mag-Ox 400) 400 mg DAILY PO Last administered on 05/02/18 08:46; Admin Dose 400 MG; Start 04/29/18 at 09:00 Prednisone (Prednisone) 40 mg DAILY PO Last administered on 05/02/18 08:46; Admin Dose 40 MG; Start 05/01/18 at 09:00 Metoprolol Succinate (Toprol Xl) 100 mg BID PO Last administered on 3/13/19at 08:48; Admin Dose 100 MG; Start 05/01/18 at 21:00 Furosemide (Lasix) 40 mg DAILY PO Last administered on 05/02/18at 08:47; Admin Dose 40 MG; Start 05/02/18 at 09:00 CRISPIN STONE NP May 02, 2018 11:02
--- NOTE | 2018-05-02 11:12 | CONS ---
Consult Date/Type/Reason Admit Date/Time Apr 26, 2018 at 19:40 Initial Consult Date Type of Consult Pulmonary Date/Time of Note DATE: 05/02/18 TIME: 11:10 Subjective Breathing slowly improving. Still requires o2 at rest on exertion. Objective Vital Signs Date Temp Pulse Resp B/P (MAP) Pulse Ox O2 O2 Flow FiO2 Time Delivery Rate 05/02/18 78 20 96 Nasal 5.0 10:07 Cannula 05/02/18 97.2 132/83 07:20 (99) 05/02/18 35 03:59 Intake and Output 05/01/18 05/01/18 05/02/18 1515:00 23:00 07:00 IntakeIntake Total 1000 ml 800 ml OutputOutput Total 1450 ml 1100 ml BalanceBalance -450 ml -300 ml Exam GENERAL: Well-nourished well-developed gentleman comfortable at rest no acute distress VITAL SIGNS: per chart NECK: Supple. No JVD or lymphadenopathy. CARDIAC EXAM: S1, S2. No added sounds or murmurs. CHEST: Edema +1 diminished air entry bilaterally with rales and wheezes ABDOMEN: Soft, nontender. No guarding or rebound. EXTREMITIES: No cyanosis, clubbing edema +1 NEUROLOGIC: Generalized weakness. No focal deficits. Results/Medications Result Diagram: 05/02/18 0610 05/02/18 0610 Results 24 hrs Laboratory Tests Test 05/02/18 06:10 White Blood Count 16.8 H Red Blood Count 6.07 Hemoglobin 18.6 H Hematocrit 57.0 H Mean Corpuscular Volume 93.9 Mean Corpuscular Hemoglobin 30.6 Mean Corpuscular Hemoglobin Concent 32.6 Red Cell Distribution Width 13.7 Platelet Count 268 Mean Platelet Volume 10.3 Immature Granulocytes % 2.100 H Neutrophils % 63.1 Lymphocytes % 20.9 Monocytes % 13.3 H Eosinophils % 0.2 Basophils % 0.4 Nucleated Red Blood Cells % 0.0 Immature Granulocytes # 0.360 H Neutrophils # 10.6 H Lymphocytes # 3.5 H Monocytes # 2.2 H Eosinophils # 0.0 Basophils # 0.1 Nucleated Red Blood Cells # 0.0 Sodium Level 135 Potassium Level 5.0 Chloride Level 89 L Carbon Dioxide Level 36 H Anion Gap 10 Blood Urea Nitrogen 51 H Creatinine 0.92 Est Glomerular Filtrat Rate mL/min > 60 Glucose Level 93 Calcium Level 9.3 Magnesium Level 2.5 Medications Current Medications Aspirin (Halfprin) 81 mg DAILY PO Last administered on 05/02/18 08:48; Admin Dose 81 MG; Start 04/27/18 at 09:00 Atorvastatin Calcium (Lipitor) 20 mg DAILY@21 PO Last administered on 05/01/18 21:19; Admin Dose 20 MG; Start 04/27/18 at 21:00 IV Flush (NS 3 ml) 3 ml PER PROTOCOL IV ; Start 04/26/18 at 20:30 Ondansetron HCl (Zofran Inj) 4 mg Q6H PRN IV NAUSEA/VOMITING; Start 04/26/18 at 20:30 Acetaminophen (Tylenol Tab) 650 mg Q6H PRN PO .PAIN 1-3 OR TEMP Last administered on 05/01/18 17:21; Admin Dose 650 MG; Start 04/26/18 at 20:30 Docusate Sodium (Colace) 100 mg Q12H PRN PO .CONSTIPATION; Start 04/26/18 at 20:30 Magnesium Hydroxide (Milk Of Mag) 30 ml DAILY PRN PO .CONSTIPATION; Start 04/26/18 at 20:30 Pantoprazole (Protonix Tab) 40 mg DAILY@06 PO Last administered on 05/02/18 06:08; Admin Dose 40 MG; Start 04/27/18 at 06:00 Heparin Sodium (Porcine) (Heparin (5000 Units/1ml)) 5,000 unit Q8 SC Last administered on 05/02/18 06:16; Admin Dose 5,000 UNIT; Start 04/26/18 at 22:00 Albuterol/ Ipratropium (Duoneb) 3 ml Q4H RESP THERAPY HHN Last administered on 05/02/18 08:54; Admin Dose 3 ML; Start 04/27/18 at 13:00 Albuterol (Proventil 0.083% (Neb)) 1.25 mg Q2H RESP THERAPY PRN HHN SHORTNESS OF BREATH; Start 04/27/18 at 11:30 Benazepril HCl (Lotensin) 10 mg BID PO Last administered on 05/02/18 08:47; Admin Dose 10 MG; Start 04/28/18 at 09:00 Ceftriaxone Sodium 50 ml @ 100 mls/hr Q24H IVPB Last administered on 05/01/18 14:13; Admin Dose 100 MLS/HR; Start 04/27/18 at 14:00 Montelukast Sodium (Singulair) 10 mg HS PO Last administered on 05/01/18 21:20; Admin Dose 10 MG; Start 04/28/18 at 21:00 Fluticasone/ Vilanterol (Breo Ellipta 100-25 Mcg Inh) 1 inh DAILY INH Last administered on 05/02/18 08:50; Admin Dose 1 INH; Start 04/28/18 at 09:00 Tiotropium [place] (Spiriva) 1 inh DAILY INH Last administered on 05/02/18 10:32; Admin Dose 1 INH; Start 04/28/18 at 09:00 Spironolactone (Aldactone) 25 mg DAILY PO Last administered on 05/02/18 08:47; Admin Dose 25 MG; Start 04/28/18 at 09:00 Magnesium Oxide (Mag-Ox 400) 400 mg DAILY PO Last administered on 05/02/18 08:46; Admin Dose 400 MG; Start 04/29/18 at 09:00 Prednisone (Prednisone) 40 mg DAILY PO Last administered on 05/02/18 08:46; Admin Dose 40 MG; Start 05/01/18 at 09:00 Metoprolol Succinate (Toprol Xl) 100 mg BID PO Last administered on 05/02/18 08:48; Admin Dose 100 MG; Start 05/01/18 at 21:00 Furosemide (Lasix) 40 mg DAILY PO Last administered on 05/02/18 08:47; Admin Dose 40 MG; Start 05/02/18 at 09:00 Assessment/Plan Hospital Course (Demo Recall) IMPRESSION AND Acute on chronic hypoxemic and hypercapnic respiratory failure likely secondary to combination of chronic obstructive pulmonary disease exacerbation and congestive cardiac failure. Probable underlying obesity hypoventilation syndrome. Severe emphysema noted on CT. Probable obstructive sleep apnea also Recommendations 1. Diuresis. 2. Supplemental O2. Nocturnal noninvasive positive pressure ventilation. Outpatient PSG. 3. Bronchodilators. 4. Steroid taper. 5. ABG on room air to evaluate for home O2 shows patient will need 4 L suppl emental O2 continuous 6. Outpatient sleep study. dc home once o2 available. MILANA CHINCHILLA MD, [facility] May 02, 2018 11:12
[2018-05-02] MEDS ORDERED: FLUTICASONE/VILANTEROL 200-25 INH DEVICE INH SCH (12:00)
--- NOTE | 2018-05-02 12:41 | CONS ---
Assessment/Plan Cardiology NYHA: III Heart Failure Type: Acute Heart Failure Type: Systolic Assessment/Plan Hospital Course (Demo Recall) Acute decompensated systolic congestive heart failure Cardiomyopathy with left ventricular ejection fraction 30% Nonobstructive coronary artery disease CT coronary angiogram 04/30/2018 COPD exacerbation Respiratory failure, off BiPAP History of hypertension History of dyslipidemia Active tobacco use -CT coronary angiogram performed yesterday with no evidence of obstructive coronary artery disease -Continue beta-tyra as heart rate and blood pressure tolerates -TIMOTHY inhibitor and titrate as renal function and blood pressure permits -Appears near euvolemic, decreased dose of both Lasix and Aldactone -Maintain potassium above 4.0 and magnesium above 2.0 -Smoking cessation -DC planning Consultation Date/Type/Reason Admit Date/Time Apr 26, 2018 at 19:40 Initial Consult Date Type of Consult Cardiology Date/Time of Note DATE: 05/02/18 TIME: 12:40 24 HR Interval Summary Free Text/Dictation Feeling overall better. Denies shortness of breath, palpitations or chest pain Exam/Review of Systems Vital Signs Vitals Vital Signs Date Temp Pulse Resp B/P (MAP) Pulse Ox O2 O2 Flow FiO2 Time Delivery Rate 05/02/18 97.5 76 18 108/62 90 Nasal 11:29 (77) Cannula 05/02/18 5.0 10:07 05/02/18 35 03:59 Intake and Output 05/01/18 05/01/18 05/02/18 1515:00 23:00 07:00 IntakeIntake Total 1000 ml 800 ml OutputOutput Total 1450 ml 1100 ml BalanceBalance -450 ml -300 ml Exam Constitutional: alert, oriented (No apparent distress, coughing at times) Respiratory: other (Coarse breath sounds bilaterally, no wheezing) Cardiovascular: regular rate and rhythm (S1-S2 heard) Gastrointestinal: soft, non-tender, bowel sounds Extremities: other (No significant edema) Labs Result Diagram: 05/02/18 0610 05/02/18 0610 Results 24hrs Laboratory Tests Test 05/02/18 06:10 White Blood Count 16.8 H Red Blood Count 6.07 Hemoglobin 18.6 H Hematocrit 57.0 H Mean Corpuscular Volume 93.9 Mean Corpuscular Hemoglobin 30.6 Mean Corpuscular Hemoglobin Concent 32.6 Red Cell Distribution Width 13.7 Platelet Count 268 Mean Platelet Volume 10.3 Immature Granulocytes % 2.100 H Neutrophils % 63.1 Lymphocytes % 20.9 Monocytes % 13.3 H Eosinophils % 0.2 Basophils % 0.4 Nucleated Red Blood Cells % 0.0 Immature Granulocytes # 0.360 H Neutrophils # 10.6 H Lymphocytes # 3.5 H Monocytes # 2.2 H Eosinophils # 0.0 Basophils # 0.1 Nucleated Red Blood Cells # 0.0 Sodium Level 135 Potassium Level 5.0 Chloride Level 89 L Carbon Dioxide Level 36 H Anion Gap 10 Blood Urea Nitrogen 51 H Creatinine 0.92 Est Glomerular Filtrat Rate mL/min > 60 Glucose Level 93 Calcium Level 9.3 Magnesium Level 2.5 Medications Medications Current Medications Aspirin (Halfprin) 81 mg DAILY PO Last administered on 05/02/18at 08:48; Admin Dose 81 MG; Start 04/27/18 at 09:00 Atorvastatin Calcium (Lipitor) 20 mg DAILY@21 PO Last administered on 05/01/18at 21:19; Admin Dose 20 MG; Start 04/27/18 at 21:00 IV Flush (NS 3 ml) 3 ml PER PROTOCOL IV ; Start 04/26/18 at 20:30 Ondansetron HCl (Zofran Inj) 4 mg Q6H PRN IV NAUSEA/VOMITING; Start 04/26/18 at 20:30 Acetaminophen (Tylenol Tab) 650 mg Q6H PRN PO .PAIN 1-3 OR TEMP Last administered on 05/01/18at 17:21; Admin Dose 650 MG; Start 04/26/18 at 20:30 Docusate Sodium (Colace) 100 mg Q12H PRN PO .CONSTIPATION; Start 04/26/18 at 2 0:30 Magnesium Hydroxide (Milk Of Mag) 30 ml DAILY PRN PO .CONSTIPATION; Start 04/26/18 at 20:30 Pantoprazole (Protonix Tab) 40 mg DAILY@06 PO Last administered on 05/02/18at 06:08; Admin Dose 40 MG; Start 04/27/18 at 06:00 Heparin Sodium (Porcine) (Heparin (5000 Units/1ml)) 5,000 unit Q8 SC Last a dministered on 05/02/18at 06:16; Admin Dose 5,000 UNIT; Start 04/26/18 at 22:00 Albuterol/ Ipratropium (Duoneb) 3 ml Q4H RESP THERAPY HHN Last administered on 05/02/18 08:54; Admin Dose 3 ML; Start 04/27/18 at 13:00 Albuterol (Proventil 0.083% (Neb)) 1.25 mg Q2H RESP THERAPY PRN HHN SHORTNESS OF BREATH; Start 04/27/18 at 11:30 Benazepril HCl (Lotensin) 10 mg BID PO Last administered on 05/02/18 08:47; Admin Dose 10 MG; Start 04/28/18 at 09:00 Ceftriaxone Sodium 50 ml @ 100 mls/hr Q24H IVPB Last administered on 05/01/18 14:13; Admin Dose 100 MLS/HR; Start 04/27/18 at 14:00 Montelukast Sodium (Singulair) 10 mg HS PO Last administered on 05/01/18 21:20; Admin Dose 10 MG; Start 04/28/18 at 21:00 Fluticasone/ Vilanterol (Breo Ellipta 100-25 Mcg Inh) 1 inh DAILY INH Last administered on 05/02/18 08:50; Admin Dose 1 INH; Start 04/28/18 at 09:00 Tiotropium [place] (Spiriva) 1 inh DAILY INH Last administered on 05/02/18 10:32; Admin Dose 1 INH; Start 04/28/18 at 09:00 Spironolactone (Aldactone) 25 mg DAILY PO Last administered on 05/02/18 08:47; Admin Dose 25 MG; Start 04/28/18 at 09:00 Magnesium Oxide (Mag-Ox 400) 400 mg DAILY PO Last administered on 05/02/18 08:46; Admin Dose 400 MG; Start 04/29/18 at 09:00 Metoprolol Succinate (Toprol Xl) 100 mg BID PO Last administered on 05/02/18 08:48; Admin Dose 100 MG; Start 05/01/18 at 21:00 Furosemide (Lasix) 40 mg DAILY PO Last administered on 05/02/18 08:47; Admin Dose 40 MG; Start 05/02/18 at 09:00 Prednisone (Prednisone) 20 mg DAILY PO ; Start 05/03/18 at 09:00 Fluticasone/ Vilanterol (Breo Ellipta 200-25 Mcg Inh) 1 inh DAILY INH ; Start 05/02/18 at 12:00 Driss Bolanos DO May 02, 2018 12:41
[2018-05-02] MEDS: CEFTRIAXONE 2 GM/50 ML (PMX) 50 ML IVPB SCH (14:09)
[2018-05-02] MEDS: ACETAMINOPHEN 325 MG TAB PO PRN (14:09)
[2018-05-02] MEDS ORDERED: MONT10TA24 PO (19:00)
[2018-05-02] MEDS ORDERED: TIOT18CA INH (19:00)
[2018-05-02] MEDS ORDERED: FURO40TA4 PO (19:00)
[2018-05-02] MEDS ORDERED: FLUT1BLS INH (19:00)
[2018-05-02] MEDS ORDERED: MED4DP PO (19:01)
[2018-05-02] MEDS ORDERED: METO-336 PO (19:01)
[2018-05-02] MEDS ORDERED: BENA20TA4 PO (19:01)
[2018-05-02] MEDS ORDERED: SPIR25TA PO (19:01)
[2018-05-02] MEDS ORDERED: ALBU8.5H8 INH (19:01)
--- NOTE | 2018-05-02 19:02 | PDOCDIS ---
Discharge Instructions CONDITION [id number] Patient Condition: [id number] Good HOME CARE INSTRUCTIONS: [id number] Diet Instructions: [id number] Reduced Calorie ACTIVITY: [id number] Activity Restrictions: [id number] Slowly Increase Activity Rest between Activity Avoid heavy lifting Avoid Heavy Housework [id number] Bathing Restrictions: [id number] Shower FOLLOW UP/APPOINTMENTS Follow-up Plan FOLLOW UP WITH YOUR PRIMARY CARE PHYSICIAN IN 1-2 WEEKS REFERRALS [id number] Agency Name and Phone [id number] for Home Number: [id number] [place] May 02, 2018 19:01
[2018-05-02] MEDS: ATORVASTATIN 20 MG TAB PO SCH (20:27)
[2018-05-02] MEDS: MONTELUKAST 10 MG TAB PO SCH (20:27)
--- NOTE | 2018-05-02 20:31 | DS ---
Date/Time of Note Date/Time of Note DATE: 05/02/18 TIME: 20:27 Discharge Summary Admission/Discharge Info Admit Date/Time Apr 26, 2018 at 19:40 Discharge Date/Time Discharge Diagnosis 1. Acute oxygen dependent hypoxemic/hypercapnic respiratory failure, multifactorial with CHF exacerbation/COPD exacerbation/possible TAMANNA component. 2. Acute decompensated systolic congestive heart failure. 3. Nonsustained Ventricular Tachycardia, resolved 4.COPD 5. Hypertension 6. Dyslipidemia 7.Obesity with a BMI 38.3. 8. Tobacco use Patient Condition: Stable Consults ,pulmonary ,cards Procedures 05/01/18.cardiac CT IMPRESSION: Total calcium score: 345 RCA: Small plaques produce less than 25% stenosis. LM: Normal. LAD: Small calcified plaques in the proximal segment of vessel produce less than 20% stenosis. LCX: Small calcified plaques in the proximal segment of vessel do not produce any stenosis. Severe centrilobular emphysematous changes. Mild diffuse peribronchial thickening with subsegmental mucus plugging may represent combination of acute and chronic small airways disease. 04/26/18,CHEST XRAY IMPRESSION: Mild cardiomegaly with pulmonary vascular congestion. .Jaime Garcia MD, MD Date Time Electronically viewed and signed by .Jaime Garcia MD, MD on 04/26/2018 16:29 .S/ 04/26/18. TTE onclusions: Mild concentric left ventricular hypertrophy. Moderate enlargement of left ventricle cavity. Severe left ventricular systolic dysfunction. Ejection fraction is visually estimated at 30 %. Tissue Doppler/Mitral Doppler indices are consistent with impaired relaxation (Stage I diastolic dysfunction). Normal right ventricular size. Normal right ventricular systolic function. There is moderate enlargement of left atrium. There is mild enlargement of right atrium. Mild mitral valve regurgitation. No significant aortic stenosis with trivial insufficiency. Right ventricular systolic pressure is consistent with mild pulmonary hypertension. Estimated peak PA systolic pressure 42 mmHg. There is mild tricuspid regurgitation. Normal pericardium with no significant pericardial effusion. Electronically Signed By: Driss Bolanos 2018-04-27 13:33:43 PST Hospital Course 62-year-old male w/htn, hyperlipidemia,tobacco use, who has no pcp checks 2/2 insurance issues, has been having progressive SOB,jessica.LE edma for months for which no workup has been done, here with worsening shortness of breath to a point that he experiences breathing difficulties/cough/wheezing/worsening jessica le edema even during small distance walking 5 days.....found to have sever CHF/COPD patient required supplemental oxygen. He also required BiPAP. Patient was no kvng with acute decompensated systolic congestive heart failure with ejection fraction 30%. Patient also had COPD exacerbation. . He was being followed by pulmonary He was continued on aggressive medical management including diuretics, TIMOTHY inhibitors, Aldactone and beta-blockers. Patient also underwent CT coronary angiography on 05/01/2018 which is normal study. Patient also had one single episode of a nonsustained ventricular tachycardia 9 beats which was self converted without any further episode. He was continued on appropriate beta-tyra dosageand cardiology group. Patient was continued on COPD maintenance management including as needed bronchodilators, long-acting beta agonist and ICH. He also required systemic steroids which were tapered down. He was counseled on smoking cessation. During the course of hospitalization, he was also noted with noncompliance with BiPAP use and supplemental oxygen. He was consulted and he also had social services assistant evaluation. Patient also was counseled on obesity/weight reduction program. His A1c and lipid panel within acceptable range. Patient was continued on antihypertensives and statin therapy. Patient had physical therapy evaluation and he did not require any assistance. However, patient continued to require supplemental oxygen as such at home oxygen was needed prior to discharge. This was arranged on 05/02/2018. At this time, patient is hemodynamically stable. Patient is stable to be discharged with outpatient cardiology and pulmonary medicine for follow-up. He was given resources for this. Approximately 60 minutes was spent on coordinating the discharge on this patient. Patient was seen in collaboration with Dr. Beltrán. Home Meds Active Scripts Benazepril Hcl* (Benazepril Hcl*) 20 Mg Tablet, 20 MG PO DAILY, #30 TAB Prov:MADISON NICE 05/02/18 Albuterol Sulfate* (Proair HFA*) 8.5 Gm Hfa.aer.ad, 2 PUFF INH Q4H PRN for WHEEZING AND SOB, #1 INHALER Prov:MADISON NICE 05/02/18 Methylprednisolone* (Medrol* DOSE PACK) 4 Mg/Dose-Pack Tab.ds.pk, 4 MG PO . DIRECTED, #1 PACKET Prov:MADISON NICE 05/02/18 Metoprolol Succinate* (Toprol XL*) 100 Mg Tab.sr.24h, 100 MG PO BID, #60 TAB Prov:MADISON NICE 05/02/18 Spironolactone* (Aldactone*) 25 Mg Tablet, 12.5 MG PO DAILY, #60 TAB Prov:MADISON NICE 05/02/18 Montelukast Sodium* (Montelukast Sodium*) 10 Mg Tablet, 10 MG PO HS, #30 TAB Prov:MADISON NICE 05/02/18 Fluticasone/Vilanterol (Breo Ellipta 200-25 Mcg INH) 1 Each Blst.w.dev, 1 INH INH DAILY, #1 INHALER Prov:MADISON NICE 05/02/18 Furosemide* (Furosemide*) 40 Mg Tablet, 20 MG PO DAILY, #60 TAB Prov:MADISON NICE 05/02/18 Tiotropium Fitzhugh* (Spiriva*) 18 Mcg Cap.w.dev, 1 INH INH DAILY, #1 INHALER Prov:MADISON NICE 05/02/18 Reported Medications Sildenafil Citrate* (Viagra*) 100 Mg Tablet, 100 MG PO NEEDED PRN for PRN, TAB 04/26/18 Aspirin* (Aspirin* EC) 81 Mg Tablet.dr, 81 MG PO DAILY, TAB 04/26/18 Simvastatin* (Zocor*) 40 Mg Tablet, 40 MG PO DAILY, #30 TAB 04/26/18 Ibuprofen* (Ibuprofen*) 600 Mg Tablet, 600 MG PO DAILY, TAB 04/26/18 Discontinued Reported Medications Benazepril Hcl* (Benazepril Hcl*) 40 Mg Tablet, 40 MG PO DAILY, #30 TAB 04/26/18 Hydrochlorothiazide* (Hydrochlorothiazide*) 12.5 Mg Tablet, 12.5 MG PO DAILY, #30 TAB 04/26/18 Ibuprofen* (Advil*) 200 Mg Capsule, 600 MG PO Q4 05/02/12 Follow-up Plan FOLLOW UP WITH YOUR PRIMARY CARE PHYSICIAN IN 1-2 WEEKS Primary Care Provider Care Physician No Primary Pending Labs Laboratory Tests Test 05/02/18 06:10 White Blood Count 16.8 10^3/ul (4.8-10.8) Red Blood Count 6.07 10^6/ul (4.70-6.10) Hemoglobin 18.6 g/dl (14.0-18.0) Hematocrit 57.0 % (42.0-52.0) Mean Corpuscular Volume 93.9 fl (82.0-101.0) Mean Corpuscular Hemoglobin 30.6 pg (29.0-33.0) Mean Corpuscular Hemoglobin Concent 32.6 g/dl (32.0-37.0) Red Cell Distribution Width 13.7 % (11.5-14.5) Platelet Count 268 10^3/UL (140-415) Mean Platelet Volume 10.3 fl (7.4-10.4) Immature Granulocytes % 2.100 % (0.001-0.429) Neutrophils % 63.1 % (39.0-77.0) Lymphocytes % 20.9 % (15.0-51.0) Monocytes % 13.3 % (0.0-11.0) Eosinophils % 0.2 % (0.0-7.0) Basophils % 0.4 % (0.0-2.0) Nucleated Red Blood Cells % 0.0 /100WBC (0.0-0.0) Immature Granulocytes # 0.360 10^3/ul (0.0-0.031) Neutrophils # 10.6 10^3/ul (1.6-7.5) Lymphocytes # 3.5 10^3/ul (0.8-2.9) Monocytes # 2.2 10^3/ul (0.3-0.9) Eosinophils # 0.0 10^3/ul (0.0-0.5) Basophils # 0.1 10^3/ul (0.0-0.1) Nucleated Red Blood Cells # 0.0 10^3/ul (0.0-0.0) Sodium Level 135 mmol/L (135-144) Potassium Level 5.0 mmol/L (3.5-5.1) Chloride Level 89 mmol/L (97-110) Carbon Dioxide Level 36 mmol/L (21-31) Anion Gap 10 (5-13) Blood Urea Nitrogen 51 mg/dl (7-20) Creatinine 0.92 mg/dl (0.61-1.24) Est Glomerular Filtrat Rate mL/min > 60 mL/min (>60) Glucose Level 93 mg/dl (70-220) Calcium Level 9.3 mg/dl (8.4-10.2) Magnesium Level 2.5 mg/dl (1.7-2.5) CRISPIN STONE V[employer] May 02, 2018 20:31
[2018-05-03] MEDS ORDERED: predniSONE 20 MG TAB PO SCH (09:00)
[2018-05-03] MEDS ORDERED: SPIRONOLACTONE 25 MG TAB PO SCH (09:00)
[2018-05-03] MEDS ORDERED: FUROSEMIDE 40 MG TAB PO SCH (09:00)
== END 2018-05-02 20:46 | disposition home or self-care (01) | DRG 291 ==
LOC: E/R 15:37 → TEL 19:40 → ICU 04-27 11:18 → TEL 04-28 23:35
PROVIDERS: ADMIT Family Medicine; ATTEND Family Medicine
PROC: 4A133R1 Monitoring of Arterial Saturation, Peripheral, Percutaneous Approach (ICD-10-PCS; principal; 2018-04-26)
PROC: 5A09357 Assistance with Respiratory Ventilation, Less than 24 Consecutive Hours, Continuous Positive Airway Pressure (ICD-10-PCS; 2018-04-26)
DX: I11.0 Hypertensive heart disease with heart failure (principal); J96.22 Acute and chronic respiratory failure with hypercapnia; J96.21 Acute and chronic respiratory failure with hypoxia; J44.1 Chronic obstructive pulmonary disease with (acute) exacerbation; E87.2 Acidosis; I47.2 Ventricular tachycardia; I50.23 Acute on chronic systolic (congestive) heart failure; I42.9 Cardiomyopathy, unspecified; E66.9 Obesity, unspecified; Z68.38 Body mass index [BMI] 38.0-38.9, adult; E78.5 Hyperlipidemia, unspecified; F17.210 Nicotine dependence, cigarettes, uncomplicated; I25.10 Atherosclerotic heart disease of native coronary artery without angina pectoris; G47.33 Obstructive sleep apnea (adult) (pediatric); Z79.82 Long term (current) use of aspirin
CPT/HCPCS: 36415; 36600; 71045; 71046; 75571; 75574; 80048; 80053; 80061; 81001; 82550; 82553; 82803; 83036; 83605; 83735; 83880; 84439; 84443; 84481; 84484; 85025; 85610; 86803; 87040; 87081; 87086; 87340; 93005; 93306; 94640; 94644; 94660; 96374; 96375; 97162; A4310; J0696; J1644; J1940; J1956; J2920; J2930; J3475; J7512; P9047; Q9967

== ENCOUNTER 2018-11-04 11:21 | Inpatient (IN) | payer OTHER ==
[~2018-11-04] VITALS: Ht 175.3 cm; Wt 109.6 kg
[~2018-11-04 11:21] MED LIST changes: +ACET325T33 PO; +ALBU8.5H8 INH; +APIX5TAB PO; +ASPI-817 PO; +BENA20TA4 PO; +FLUT1BLS INH; +FURO40TA4 PO; +IBUP-1542 PO; -IBUP200C11 PO; +MED4DP PO; +METO-319 PO; +METO-336 PO; +MONT10TA24 PO; +Nicotine (14 Mg/24 Hr) TRANSDERM; +SIMV40TA2 PO; +SPIR25TA PO; +TIOT18CA INH; +VIA100 PO
[2018-11-04 15:45] VITALS: BP 88/62; PULSE 48; RESP 18
[2018-11-04 15:56] VITALS: Ht 175.3 cm; Wt 109.6 kg
[2018-11-04] MEDS ORDERED: SOD CHLORIDE 0.9% 500 ML IV ONE (17:30)
[2018-11-04] MEDS ORDERED: AMIODARONE 900 MG in DEXTROSE 5% 482 ML IV SCH (18:00)
[2018-11-04] MEDS ORDERED: ZOLPIDEM 5 MG TAB PO PRN (18:00)
[2018-11-04] MEDS ORDERED: HYDROCODONE/APAP (5/325) TAB PO PRN (18:00)
[2018-11-04] MEDS ORDERED: ONDANSETRON 4 MG INJ IV PRN (18:00)
[2018-11-04] MEDS ORDERED: NACL 0.9% 3 ML SYG IV SCH (18:00)
[2018-11-04] MEDS ORDERED: morphine 2 MG INJ IV PRN (18:00)
[2018-11-04] MEDS ORDERED: DOCUSATE SODIUM 100 MG CAP PO PRN (18:00)
[2018-11-04] MEDS: APIXABAN 5 MG TABLET PO SCH (18:39)
[2018-11-04 18:46] VITALS: BP 102/62; PULSE 125
[2018-11-04] MEDS ORDERED: LEVALBUTEROL (NEB) 0.31 MG/3 ML AMP HHN PRN (20:30)
[2018-11-04 20:42] VITALS: PULSE 50; RESP 18
[2018-11-04] MEDS: METOPROLOL (XL) 100 MG TAB PO SCH (22:21)
[2018-11-04] MEDS: MONTELUKAST 10 MG TAB PO SCH (22:21)
[2018-11-05 00:35] VITALS: BP 83/57; PULSE 78; RESP 18
[2018-11-05 04:13] VITALS: BP 84/62; PULSE 44; RESP 18
[2018-11-05 07:46] VITALS: BP 92/63; PULSE 58; RESP 17
[2018-11-05] MEDS: APIXABAN 5 MG TABLET PO SCH ×2 (08:51→20:29)
[2018-11-05] MEDS: ATORVASTATIN 20 MG TAB PO SCH (08:51)
[2018-11-05] MEDS: FLUTICASONE/VILANTEROL 200-25 INH DEVICE INH SCH (08:52)
[2018-11-05] MEDS: TIOTROPIUM 18 MCG CAPSULE INHA DEV INH SCH (08:53)
[2018-11-05] MEDS ORDERED: FUROSEMIDE 40 MG TAB PO SCH (09:00)
[2018-11-05] MEDS ORDERED: SPIRONOLACTONE 25 MG TAB PO SCH (09:00)
[2018-11-05] MEDS: METOPROLOL (XL) 100 MG TAB PO SCH ×2 (09:00→20:29)
[2018-11-05 12:04] VITALS: BP 95/57; PULSE 67; RESP 17
[2018-11-05 15:44] VITALS: BP 107/65; PULSE 62; RESP 16
[2018-11-05] MEDS: NICOTINE (14 MG/24 HR) PATCH TRANSDERM SCH (18:27)
[2018-11-05 19:51] VITALS: BP 110/69; PULSE 64; RESP 18
[2018-11-05] MEDS: MONTELUKAST 10 MG TAB PO SCH (20:29)
[2018-11-05] MEDS: ACETAMINOPHEN 325 MG TAB PO PRN (20:30)
[2018-11-06] MEDS ORDERED: ATROPINE 1 MG INJ IV PRN
[2018-11-06 00:16] VITALS: BP 113/65; PULSE 61; RESP 20
[2018-11-06 04:13] VITALS: BP 119/66; PULSE 56; RESP 20
[2018-11-06 07:49] VITALS: BP 111/65; PULSE 65; RESP 18
[2018-11-06] MEDS: ATORVASTATIN 20 MG TAB PO SCH (08:42)
[2018-11-06] MEDS: APIXABAN 5 MG TABLET PO SCH (08:42)
[2018-11-06] MEDS: ACETAMINOPHEN 325 MG TAB PO PRN (08:42)
[2018-11-06] MEDS: TIOTROPIUM 18 MCG CAPSULE INHA DEV INH SCH (08:43)
[2018-11-06] MEDS: NICOTINE (14 MG/24 HR) PATCH TRANSDERM SCH (08:43)
[2018-11-06] MEDS: FLUTICASONE/VILANTEROL 200-25 INH DEVICE INH SCH (08:43)
[2018-11-06] MEDS ORDERED: METOPROLOL (XL) 50 MG TAB PO SCH (09:00)
== END 2018-11-06 12:30 | disposition home or self-care (01) | DRG 308 ==
LOC: E/R 11:21 → TEL 14:17
PROVIDERS: ADMIT Internal Medicine; ATTEND Internal Medicine
DX: I48.0 Paroxysmal atrial fibrillation (principal); J96.21 Acute and chronic respiratory failure with hypoxia; J96.22 Acute and chronic respiratory failure with hypercapnia; I50.23 Acute on chronic systolic (congestive) heart failure; N17.9 Acute kidney failure, unspecified; I42.9 Cardiomyopathy, unspecified; I11.0 Hypertensive heart disease with heart failure; I95.9 Hypotension, unspecified; J44.9 Chronic obstructive pulmonary disease, unspecified; E66.01 Morbid (severe) obesity due to excess calories; G47.33 Obstructive sleep apnea (adult) (pediatric); F17.210 Nicotine dependence, cigarettes, uncomplicated; Z79.82 Long term (current) use of aspirin; Z68.35 Body mass index [BMI] 35.0-35.9, adult; Z71.3 Dietary counseling and surveillance
CPT/HCPCS: 36415; 71045; 76775; 80048; 80061; 83036; 83735; 83880; 84100; 84436; 84443; 84479; 84484; 85025; 85610; 85730; 93005; 93306; J0282; J7040; J7060